=== PATIENT | female | born 1955 | race Caucasian/White ===

== ENCOUNTER → 2019-05-31 13:06 | Outpatient (REF) | payer SELFPAY | LOC: CVS 13:06 | PROVIDERS: Family Provider Internal Medicine; PCP Internal Medicine; Referring Provider Family Medicine; Visit Provider Family Medicine | DX: R00.2 Palpitations (principal) | CPT/HCPCS: 93270 ==

== ENCOUNTER → 2021-05-02 07:03 | Outpatient (CLI) | payer BC, SELFPAY ==
--- NOTE | 2021-05-02 07:10 | ECHOD_ITS ---
Reason For Study: Afib Procedure This was a 2D Doppler, Color Flow transthoracic echocardiogram. The exam was of adequate technical quality. Exam performed in department. Left Ventricle Normal LV size. Left ventricular systolic function is normal. The estimated ejection fraction is 65 %. Unable to assess diastolic dysfunction. No regional wall motion abnormalities noted. Right Ventricle Normal RV size. Normal systolic function. Atria The left atrium is mildly enlarged. Normal right atrium. No doppler evidence for ASD. Mitral Valve There is no mitral annular calcification. Normal mitral valve. Mild (1+) mitral valve insufficiency. Tricuspid Valve Normal tricuspid valve. Mild tricuspid valve insufficiency. Right ventricular systolic pressure estimated to be 22 mmHg. Aortic Valve Trisinus/trileaflet aortic valve. Mild focal aortic valve thickening. Pulmonic Valve The pulmonic valve is not well visualized. Trivial pulmonic valve insufficiency. Great Vessels Normal sized aortic root. Pericardium/Pleural No pericardial effusion. MMode/2D Measurements & Calculations LVIDd: 4.0 cm IVSd: 1.2 cm Ao root diam: 3.0 cm LVIDs: 2.6 cm LVPWd: 1.2 cm LA dimension: 3.8 cm RVDd: 3.3 cm FS: 33.4 % LAV(MOD-bp): 68.3 ml LA A4 area: 20.5 cm2 RA A4 area: 12.8 cm2 LAV(MOD-bp) Indexed: 33.3 ml/m2 LAV(MOD-sp2): 60.0 ml LAV(MOD-sp4): 62.8 ml Doppler Measurements & Calculations MV E max tamara: 92.0 cm/sec Ao V2 max: 101.9 cm/sec LV V1 max: 91.3 cm/sec Ao max P.2 mmHg LV V1 max P.4 mmHg MR max tamara: 490.0 cm/sec PA V2 max: 97.4 cm/sec TR max tamara: 218.7 cm/sec MR max P.3 mmHg TR max P.1 mmHg ECHO/Echo Complete Interpretation Summary Left ventricular systolic function is normal. The estimated ejection fraction is 65 %. The left atrium is mildly enlarged. Mild (1+) mitral valve insufficiency. Mild tricuspid valve insufficiency. Mild focal aortic valve thickening. Trivial pulmonic valve insufficiency. Right ventricular systolic pressure estimated to be 22 mmHg. Unable to assess diastolic dysfunction. Ordering Physician: Kai Daly Referring Physician: Kai Daly Performed By: Sina Mora RCS
--- NOTE | 2021-05-02 12:15 | STRESSREP ---
Stress Test Report Date: 05-02-2021 Procedure: Pharmacologic stress nuclear imaging study Indications: Atrial fibrillation Consent: Per the patient Procedure: The patient underwent pharmacologic (Regadenoson 0.4mg ) evaluation with a peak heart rate of 117 beats per minute (75%predicted maximal heart rate) and a peak blood pressure of 138/70 mmHg. The baseline ECG demonstrated sinus bradycardia. The peak pharmacologic ECG demonstrated atrial fibrillation/flutter with no obvious ECG changes. There was a rare PAC pretest and subsequent notation of atrial fibrillation/flutter during infusion and during recovery. There was no complaint of chest discomfort during pharmacologic infusion or recovery. The examination was discontinued secondary to completion of protocol. Impression: 1. Pharmacologic (Regadenoson) evaluation 2. Peak pharmacologic ECG with atrial fibrillation/flutter with no obvious ECG changes. 3. There was a rare PAC pretest with subsequent notation of atrial fibrillation/flutter during infusion and recovery. 4. Nuclear images pending Myocardial perfusion imaging study: Technique: The patient was injected with 14.3 millicuries of technetium 99m Cardiolite and subsequently rest SPECT Cardiolite nuclear imaging was obtained in the horizontal long, vertical long, and short axis views. The patient underwent pharmacologic (Regadenoson) evaluation with a peak heart rate of 117 beats per minute (75% percent predicted maximal heart rate) and a peak blood pressure of 138/70 mmHg. The patient was injected with 45.0 millicuries of technetium 99m Cardiolite and subsequently stress SPECT Cardiolite nuclear imaging was obtained in the horizontal long, vertical long, and short axis views. A gated Cardiolite study at peak stress was obtained. Interpretation: Rest and stress SPECT Cardiolite nuclear imaging status post realignment, normalization, and attenuation correction demonstrate relative uniform tracer uptake and myocardial perfusion appearing within normal limits. There is end systolic thickening and brightening. The gated Cardiolite study demonstrates myocardial thickening and inward wall motion. The reported LVEF is 86%. Impression: 1. Rest and stress SPECT Cardiolite nuclear imaging demonstrate relative uniform tracer uptake and myocardial perfusion appearing within normal limits. 2. The gated Cardiolite study reports an LVEF of 86%. This note was generated with [employer] software. It may contain incorrect words, spelling, and punctuation that were not noted in checking the note before signing.
== END ==
PROVIDERS: PCP Family Medicine; Referring Provider Family Medicine; Visit Provider Family Medicine
DX: I48.19 Other persistent atrial fibrillation (principal)
CPT/HCPCS: 78452; 93017; 93306; A9500; A4216; J2785

== ENCOUNTER → 2021-06-04 16:42 | Outpatient (CLI) | payer BC, SELFPAY ==
[2021-06-04 17:15] LABS: Absolute Lymphocyte Count 2.56 X10^3/uL (0.83-4.51); Absolute Neutrophil Count 4.4 X10^3/uL (2.0-7.7); Basophil# 0.04 X10^3/uL; Basophil% 0.5 % (0-1); Eosinophil# 0.32 X10^3/uL; Eosinophils% 4.1 % (0-5); Hematocrit 42.6 % (37-47); Hemoglobin 13.8 g/dL (12.0-15.0); Lymphocyte # 2.56 X10^3/ul (0.83-4.51); Lymphocyte % 32.5 % (19-41); Mean Corp Hgb Conc 32.4 g/dL (32-36); Mean Corpuscular Hgb 30.3 pg (27.0-32.0); Mean Corpuscular Volume 93.4 fL (81-99); Mean Platelet Vol. 10.4 fl (6.2-12.0); Monocyte# 0.54 X10^3/uL; Monocyte% 6.9 % (0-10); NRBC Flagged by Analyzer 0 % (0-5); Neutrophil % 55.9 % (47-70); Platelet Count 216 K/mm3 (150-450); RBC Distribution Width CV 13.4 % (11.6-14.6); RBC Distribution Width SD 45.9 fl (35.1-43.9); Red Blood Count 4.56 M/mm3 (4.2-5.4); White Blood Count 7.9 K/mm3 (4.4-11.0)
[2021-06-04 17:52] LABS: Anion Gap 5 (5-15); BUN 17 mg/dL (7-18); BUN/Creat Ratio 26.5 RATIO (10-20); Calcium,Total 8.9 mg/dL (8.5-10.1); Chloride 103 mmol/L (98-107); Creatinine, Serum 0.64 mg/dL (0.55-1.02); EST Glomerular Filtration Rate 98 mL/min (>60); Est Glom Filt Rate - Afr Amer 119 mL/min (>60); Free T3 2.9 pg/mL (2.18-3.98); Glucose 95 mg/dL (74-106); Magnesium 2.3 mg/dL (1.6-2.6); Potassium 3.6 mmol/L (3.5-5.1); Sodium Level 138 mmol/L (136-145); T4 Free Direct 0.96 ng/dL (0.76-1.46); Thyroid Stim Hormone (TSH) 0.72 uIU/mL (0.358-3.74)
== END ==
PROVIDERS: PCP Family Medicine; Visit Provider Physician Assistant Medical
DX: I48.91 Unspecified atrial fibrillation (principal)
CPT/HCPCS: 36415; 80048; 83735; 84439; 84443; 84481; 85025

== ENCOUNTER 2025-09-09 05:45 | Emergency (ER) | payer MEDICARE, SELFPAY ==
[2025-09-09 05:46] VITALS: BP 153/90; PULSE 75; RESP 16; TEMP 36.4; O2SAT 100; BMI 37.9
--- NOTE | 2025-09-09 05:58 | CT_ITS ---
PROCEDURE: ABDOMEN/PELVIS W IV CONT ONLY 09/09/2025 REASON FOR EXAM: ABDOMINAL PAIN TECHNIQUE: Procedure Code: [id number] Modality: CT Procedure: ABDOMEN/PELVIS W IV CONT ONLY Coronal and Sagittal reconstruction series were provided. CONTRAST: Isovue 370 VOLUME: 95 mL One or more dose reduction techniques were used (e.g., Automated exposure control, adjustment of the mA and/or kV according to patient size, use of iterative reconstruction technique. RADIATION DOSE SUMMARY: CTDlvol: 23.19 mGy DLP: 1975.74 mGycm COMPARISON: None. FINDINGS: Lung bases: Dependent changes in the posterior lower lobes. Hiatal hernia measures 6 x 6 cm. Liver: Unremarkable. Gallbladder: Unremarkable. No biliary dilation. Spleen: Unremarkable. Pancreas: Unremarkable. Adrenals: Unremarkable. Kidneys: Severe right hydronephrosis. No obstructing stones. No left hydronephrosis. Bladder: Decompressed which limits the evaluation. Questionable wall thickening posteriorly. Reproductive Organs: Unremarkable. Bowel: Colonic diverticulosis with no evidence of acute diverticulitis. Appendix: Unremarkable. Lymph nodes: No lymphadenopathy. Vasculature: No aneurysm. Atherosclerotic calcifications. Peritoneum / Retroperitoneum: No free air or free fluid. Bones: No acute bony abnormalities. CT/Abdomen/Pelvis W IV Cont ONLY IMPRESSION: Severe right hydronephrosis without obstructing stones. This may represent a r ecently passed stone or urinary tract infection. Questionable posterior bladder wall thickening near the ureter insertion. Ultr asound on full bladder may be performed for further evaluation. Reading Location: [facility]
[2025-09-09] MEDS: 0.9% Normal Saline (1000mL) 1,000 ML 999 ML IV (06:03)
[2025-09-09 06:04] LABS: Hematocrit 45.0 % (37-47); Hemoglobin 14.6 g/dL (12.0-15.0); Immature Granulocytes Count 0.050 X10^3/uL (0.0-0.0); Mean Corp Hgb Conc 32.4 g/dL (32-36); Mean Corpuscular Volume 94.3 fL (81-99); Mean Platelet Vol. 10.4 fl (6.2-12.0); NRBC Flagged by Analyzer 0 % (0-5); Platelet Count 263 K/mm3 (150-450); RBC Distribution Width CV 13.4 % (11.6-14.6); RBC Distribution Width SD 46.5 fl (35.1-43.9); Red Blood Count 4.77 M/mm3 (4.2-5.4); White Blood Count 12.6 K/mm3 (4.4-11.0)
[2025-09-09 06:25] LABS: AST(SGOT) 26 U/L (<=31); Alanine Aminotransfer ALT/SGPT 18 U/L (<=34); Albumin, Serum 4.6 g/dL (3.4-4.8); Alkaline Phosphatase 111 U/L (35-104); Anion Gap 17 (5-15); BUN 15 mg/dL (4-19); BUN/Creat Ratio 17.0 RATIO (10-20); Calcium,Total 9.5 mg/dL (7.6-11.0); Carbon Dioxide 24.8 mmol/L (21.0-32.0); Chloride 98 mmol/L (98-108); Estimated Creatinine Clearance 71.73 ml/min (50-250); Globulin 3.1 g/dL (2.2-4.2); Glucose 166 mg/dL (70-99); Lipase 10 U/L (13-75); Potassium 3.6 mmol/L (3.3-5.1)
--- OUTSIDE RECORDS SUMMARY | 2025-09-09 07:10 | XMS RPT_ITS | CCD ---
Author Organization [facility] Care Team Providers Care Bioinformatics Computer Scientist Name Role Phone Kai Ayers MD Primary Care Provider [place] COLLEGE HIRE.Lisa MCLEOD Unavailable Ruth Lucia PA-C Unavailable Kai Ayers MD Primary Care Provider [place] COLLEGE HIRE.Lisa MCLEOD Unavailable [place] COLLEGE HIRE.Lisa MCLEOD Unavailable Ruth Lucia PA-C Unavailable Dr. Kai Ayers MD Primary Care Provider Dr. Kai Ayers MD Referring Provider Dr. Rah Joseph MD Attending Provider Rah Joseph Attending Unavailable Kai Ayers Referring Unavailable Kai Ayers Primary Care Unavailable KAI AYERS Referring Unavailable KAI AYERS Primary Care Unavailable KAI AYERS Referring Unavailable KAI AYERS Primary Care Unavailable KAI AYERS Attending Unavailable KAI AYERS Primary Care Unavailable KAI AYERS Attending Unavailable KAI AYERS Primary Care Unavailable Allergies Allergy Classification Reported Allergen(s) Allergy Type Date of Onset Reaction(s) Facility [facility] (1 source) [facility] Drug Allergy 9 Other: See Comments [facility] Work Phone: Serotonin Reuptake Inhibitors (SSRIs) (1 source) Citalopram Drug Allergy 9 Other: See Comments [facility] (20 sources) busPIRone; Translations: [BUSPIRONE] Drug Allergy 9 Other: See Comments [facility] Work Phone: (20 sources) Citalopram; Translations: [CITALOPRAM] Drug Allergy 9 Other: See Comments [facility] Work Phone: (1 source) rivaroxaban Drug Allergy 5 Marked bruising, vaginal bleeding (eliquis ok) [facility] (1 source) busPIRone Drug Allergy 5 [facility] Repository (1 source) Citalopram Drug Allergy 5 [facility] Repository (1 source) rivaroxaban Drug Allergy 5 [facility] Repository Medications Current Medications Medication Drug Class(es) Dates Sig (Normalized) Sig (Original) acetaminophen 250 mg / aspirin 250 mg / caffeine 65 mg oral tablet (1 source) Platelet Aggregation Inhibitor, Nonsteroidal Anti-inflammatory Drug, Central Nervous System Stimulant, Methylxanthine Start: 11-20-2014 take 1 tablet by mouth once daily as needed Aspirin-Acetami nophen-Caffeine (Excedrin Migraine) 1 EACH tablet Active 1 NMA PO DAILY NEEDED as needed for headache November 20, 2014 1:00am apixaban 5 mg oral tablet (20 sources) Factor Xa Inhibitor Start: 04-25-2021 End: 04-04-2025 take 1 tablet by mouth twice daily ELIQUIS 5 mg tab(s) TAKE 1 TAB BY MOUTH TWICE DAILY. STOP USING XARELTO 02/17/2022 Active Comment on above: TAKE 1 TAB BY MOUTH TWICE DAILY. STOP USING XARELTO calcium carbonate 750 mg chewable tablet (7 sources) Start: 09-13-2024 take 1 tablet by mouth twice daily calcium Carbonate 300 mg, 750mg, (TUMS E-X) 300 mg (750 mg) chewable tablet Take 1 tablet by mouth two times a day. 09/13/2024 Active calcium carbonate 1500 mg / cholecalciferol 200 unt oral tablet (20 sources) Vitamin D Start: 03-21-2021 take 1 tablet by mouth once daily calcium carbonate 600 mg-cholecalcife rol 200 units 600 mg-5 mcg (200 unit) tab Take 1 tablet by mouth once daily. 03/21/2021 Active Comment on above: Take 1 tablet by axel th once daily. Calcium Carbonate 650 mg calcium (1,625 mg) tablet (2 sources) Start: 05-24-2025 take 1 tablet by mouth once daily as needed Calcium Carbonate 650 mg calcium (1,625 mg) tablet Active 650 mg PO DAILY as needed May 24, 2025 3:34pm Start: 04-25-2021 End: 05-24-2025 take 1 tablet by mouth once daily Calcium Carbonate 650 mg calcium (1,625 mg) tablet Discontinued 650 mg PO DAILY April 25, 2021 12:00am May 24, 2025 3:35pm cholecalciferol 0.05 mg oral capsule (20 sources) Vitamin D Start: 09-13-2024 Cholecalcifero l, Vitamin D3, (VITAMIN D-3) 50 mcg (2,000 unit) cap Take one twice a day 09/13/2024 Active Start: 11-05-2020 End: 05-24-2025 take 1 capsule by mouth once daily as needed Cholecalciferol (Vitamin D3) 50 mcg (2,000 unit) capsule Active 50 ug PO DAILY as needed May 24, 2025 3:34pm Comment on above: Take one daily clobetasol propionate 0.0005 mg/mg topical ointment (20 sources) Corticosteroid Start: 05-26-2021 Clobetasol 0.05 % ointment Active 1 NMA TOPICAL EVERY WEEK May 26, 2021 12:00am 1-3x week Start: 02-02-2018 End: 05-25-2024 clobetasol (TEMOVATE) 0.05 % ointment Indications: Lichen sclerosus Use only a thin layer over affected area. Use 1-3 times weekly for maintenance 45 g 3 05/25/2024 Active Comment on above: Use only a thin laye r over affected area. Use 1-3 times weekly for maintenance clonazePAM 0.5 mg oral tablet (20 sources) Benzodiazepine Start: 12-29-2023 End: 09-16-2025 clonazePAM (KLONOPIN) 0.5 mg tablet Indications: Panic disorder without agoraphobia Take 1/2 a once daily as needed for anxiety 15 tablet 1 03/03/2025 09/16/2025 Active Start: 11-20-2014 End: 11-19-2023 clonazePAM (KLONOPIN) 0.5 mg tablet Indications: Panic disorder without agoraphobia Take 1/2 a once daily as needed for anxiety 15 tablet 1 05/05/2023 11/19/2023 Active Comment on above: Take 1/2 a once domenica y as needed for anxiety Cranberry (20 sources) Non-Standardized Food Allergenic Extract, Non-Standardized Plant Allergenic Extract Start: 05-26-2021 take 1 capsule by mouth once daily at mealtime Cranberry 500 mg capsule Active 1000 mg PO DAILY May 26, 2021 12:00am administer with meals Start: 11-20-2014 End: 05-26-2021 take 1 tablet by mouth once daily Cranberry Extract 300 MG tablet Discontinued 300 mg PO DAILY November 20, 2014 1:00am May 26, 2021 10:52am take 2 capsules by m outh once daily Cranberry 500 mg cap Take 2 capsules by mouth once daily. Active take 2 capsules by m outh once daily Cranberry 500 mg cap Take 2 capsules by mouth once daily. 0 Active Comment on above: Take 2 capsules by m outh once daily. FOLIC ACID/MULTIVIT-MIN/LUT EIN (CENTRUM SILVER ORAL) (20 sources) take 1 tablet by mouth once daily FOLIC ACID/MULTIVIT-MIN/GYPSY TEIN (CENTRUM SILVER ORAL) Take 1 tablet by mouth once daily. Active take 1 tablet by mouth once domenica y FOLIC ACID/MULTIVIT-MIN/LUTEIN (CENTRUM SILVER ORAL) Take 1 tablet by mouth once daily. 0 Active Comment on above: Take 1 tablet by axel th once daily. hydroCHLOROthiazide 12.5 mg oral capsule (20 sources) Thiazide Diuretic Start: 2020 End: 2024 take 1 capsule by mouth once daily hydroCHLOROthiazide 12.5 mg capsule Take 1 capsule by mouth once daily. 90 capsule 2 03/03/2025 Active Start: 04-25-2021 take 1 tablet by axel th once daily Hydrochlorothiazide 12.5 mg tablet Active 12.5 mg PO DAILY April 25, 2021 12:00am Comment on above: Take 1 capsule by mo uth once daily. 24 hr metoprolol succinate 50 mg extended release oral tablet (20 sources) beta-Adrenergic Alexis Start: 04-25-20 End: 02-09-20 take 1 tablet by mouth once daily metoprolol succinate ER (TOPROL XL) 50 mg 24 hr tablet Take 1 tablet by mouth once daily. 90 tablet 1 02/08/2025 Active Comment on above: Take 1 tablet by axel once daily. nystatin [id number] unt/ml topical cream (4 sources) Polyene Antifungal Start: 05-25-20 End: 11-24-19 nystatin (MYCOSTATIN) cream Indications: Cutaneous candidiasis Apply 1 application to affected area two times a day. 30 g 3 05/25/2024 11/24/2024 Active triamcinolone acetonide 1 mg/ml topical cream (20 sources) Corticosteroid Start: 05-05-20 End: 05-04-20 triamcinolone acetonide (KENALOG) 0.1 % cream Apply 1 application to affected area twice daily. 30 g 0 05/05/2023 05/04/2024 Active Start: 02-21-2022 End: 02-21-2023 triamcinolone acetonide (ALISA ALOG) 0.1 % cream Apply 1 application to affected area twice daily. 30 g 0 02/21/2022 02/21/2023 Comment on above: Apply 1 application to affected area twice daily. Completed/Discontinued Medications Medication Drug Class(es) Dates Sig (Normalized) Sig (Original) acetaminophen 325 mg / oxyCODONE hydrochloride 5 mg oral tablet (1 source) Opioid Agonist Start: 2014 End: 04-25-2021 Oxycodone-Acetamin ophen 1 TABLET tablet Discontinued 1 - 2 {tbl} PO EVERY 6 HOURS NEEDED as needed for Mod-severe pain (scale 6-10) 80 0 2014 1:00am April 25, 2021 11:47am aspirin 325 mg oral tablet (1 source) Platelet Aggregation Inhibitor, Nonsteroidal Anti-inflammatory Drug Start: 2014 End: 04-25-2021 take 1 tablet by mouth once daily Aspirin 325 MG tablet Discontinued 325 mg PO DAILY@0800 14 2014 1:00am April 25, 2021 11:44am atorvastatin 10 mg oral tablet (20 sources) HMG-CoA Reductase Inhibitor Start: 01-20-2025 End: 07-19-2025 take 1 tablet by mouth once daily atorvastatin (LIPITOR) 10 mg tablet Take 1 tablet by mouth once daily. 90 tablet 1 01/20/2025 04/11/2025 Discontinued (Discontinued by Patient) Start: 04-25-2021 End: 05-24-2025 take 1 tablet by mouth once daily atorvastatin (LIPITOR) 10 mg tablet Take 1 tablet by mouth once daily. 90 tablet 1 03/06/2024 Active Comment on above: Take 1 tablet by axel th once daily. cyanocobalamin, vitamin B-12, (VITAMIN B-12 ORAL) (14 sources) cyanocobalamin, vitamin B-12, (VITAMIN B-12 ORAL) Take by mouth. 0 Active Comment on above: Take by mouth. rivaroxaban 20 mg oral tablet (14 sources) Factor Xa Inhibitor Start: 2 End: 2 take 1 tablet by mouth once daily at dinner Rivaroxaban (Xarelto) 20 mg tablet Discontinued 20 mg PO DAILY January 21, 2022 12:00am January 22, 2022 11:42am must administer with evening meal Comment on above: Take 1 tablet by axel th daily with dinner. Problems Active Problems Problem Classification Problem Date Documented Da te Episodic/Chronic Administrative/social admission (20 sources) Advance directive discussed with patient; Translations: [Other specified counseling] Onset: 10-09-2022 Episodic Anxiety disorders (20 sources) Panic disorder without agoraphobia; Translations: [Panic disorder [episodic paroxysmal anxiety]] Onset: 09-20-2006 03-27-2020 Chronic Cardiac dysrhythmias (20 sources) Persistent atrial fibrillation; Translations: [Other persistent atrial fibrillation] Onset: 04-21-2021 10-09-2021 Chronic Cardiac dysrhythmias (3 sources) Palpitations; Translations: [Palpitations] Onset: 06-23-2019 06-23-2019 Episodic Disorders of lipid metabolism (20 sources) Mixed hyperlipidemia; Translations: [Mixed hyperlipidemia] Onset: 04-03-2011 Resolved: 05-20-2016 12-20-2018 Chronic Essential hypertension (1 source) Essential hypertension; Translations: [Essential (primary) hypertension] 04-25-2021 Chronic Fracture of lower limb (1 source) Closed fracture of ankle; Translations: [Other fracture of left lower leg, initial encounter for closed fracture] 11-21-2014 Episodic Immunizations and screening for infectious disease (3 sources) Vaccination needed; Translations: [Encounter for immunization] Onset: 09-13-2024 04-11-2025 Episodic Osteoporosis (20 sources) Senile osteoporosis; Translations: [Age-related osteoporosis without current pathological fracture] Onset: 11-05-2020 11-05-2020 Chronic Other nutritional; endocrine; and metabolic disorders (20 sources) Obese class II; Translations: [Obesity, unspecified] Onset: 03-21-2021 03-21-2021 Chronic Other screening for suspected conditions (not mental disorders or infectious disease) (20 sources) Thyroid function tests abnormal; Translations: [Other specified abnormal findings of blood chemistry] Onset: 08-18-2012 Resolved: 06-04-2017 03-28-2020 Episodic Other skin disorders (20 sources) Lichen sclerosus et atrophicus; Translations: [Circumscribed scleroderma] Onset: 06-03-2017 12-20-2018 Chronic Residual codes; unclassified (1 source) Menopause present; Translations: [Asymptomatic menopausal state] 03-29-2024 Episodic Residual codes; unclassified (1 source) Tobacco user; Translations: [Tobacco use] 05-26-2021 Episodic Screening and history of mental health and substance abuse codes (1 source) Encounter for screening for depression; Translations: [Screening for depression] Onset: 04-11-2025 Episodic Substance-related disorders (20 sources) Smoker; Translations: [Nicotine dependence, unspecified, uncomplicated] Onset: 03-23-2006 12-20-2018 Chronic Unclassified (2 sources) Patient encounter status 01-30-2025 Unclassified (1 source) Other persistent atrial fibrillation; Translations: [Persistent atrial fibrillation (HCC)] Onset: 10-09-2021 Unclassified (1 source) Obesity, Class II, BMI 35-39.9; Translations: [Obesity, Class II, BMI 35-39.9] Onset: 03-21-2021 Past or Other Problems Problem Classification Problem Date Documented Date Episodic/Chronic Diabetes mellitus without complication (20 sources) High hemoglobin A1c level; Translations: [Other abnormal glucose] Onset: 03-21-2021 03-21-2021 Episodic Mycoses (20 sources) Onychomycosis due to dermatophyte ; Translations: [Tinea unguium] Onset: 06-03-2017 12-20-2018 Episodic Other aftercare (20 sources) Drug therapy finding; Translations: [Other alf (current) drug therapy] Onset: 04-24-2014 04-25-2014 Episodic Other aftercare (20 sources) Patient encounter status; Translations: [Other 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) drug therapy] Onset: 03-20-2022 03-20-2022 Episodic Other aftercare (1 source) Other 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) drug therapy; Translations: [Medication management] Onset: 03-20-2022 Episodic Other and unspecified benign neoplasm (18 sources) Benign neoplasm of rectum and anal canal; Translations: [Benign neoplasm of rectum] Onset: 08-18-2012 Resolved: 06-03-2017 06-03-2017 Episodic Other skin disorders (20 sources) History of actinic keratosis; Translations: [Personal history of diseases of the skin and subcutaneous tissue] Onset: 06-03-2017 12-20-2018 Episodic Residual codes; unclassified (20 sources) Localized edema; Translations: [Localized edema] Onset: 03-21-2021 03-21-2021 Episodic Residual codes; unclassified (20 sources) Active living will ; Translations: [Other specified health status] Onset: 10-09-2022 10-09-2022 Episodic Spondylosis; intervertebral disc disorders; other back problems (18 sources) Low back pain; Translations: [Lumbago] Onset: 04-01-2006 Resolved: 06-03-2017 06-03-2017 Episodic Results Test Name Value Interpretation Reference Range Facility [facility] SCREENING W TOMOon 06-28 [facility] SCREENING W PRIMITIVO * * *Final Report* * * DATE OF EXAM: Jun 28 2025 2:49PM [id number] - [facility] SCREENING W PRIMITIVO / PROCEDURE REASON: Encounter for screening mammogram for breast cancer * * * * Physician Interpretation * * * * RESULT: [place] [address] #[id number] - [facility] SCREENING W PRIMITIVO HISTORY: 69 year-old patient presents for screening. Patient is asymptomatic in both breasts. Patient states no personal history of breast cancer. COMPARISON STUDIES: The present examination has been compared to prior imaging studies dated 06/18/2017 (mammogram), 07/01/2018 (mammogram) and 10/29/2020 (mammogram). MAMMOGRAM TECHNIQUE: The study was acquired using full field digital technology and interpreted from soft copy. Digital Breast Tomosynthesis (DBT) images were obtained and used to assist in the interpretation of this examination. Computer-aided detection was utilized by the radiologist in the interpretation of this examination. MAMMOGRAM FINDINGS: There are scattered areas of fibroglandular density. No suspicious masses, calcifications or other abnormalities are seen in either breast. There are no significant interval changes. IMPRESSION: There is no mammographic evidence of malignancy in either breast. Routine screening mammogram is recommended. Annual mammogram will be due in 1 year. BI-RADS Category 1: Negative RISK: Based on the Tyrer-Cuzick (TC) risk assessment model, this patient has a 5.7% lifetime risk of developing breast cancer, meaning they are at average risk for developing breast cancer. However, this is only an estimate based on available history provided on the patient's questionnaire. We encourage all patients to talk with their providers about these results, further recommendations for managing breast health, and appropriate supplemental screening options if the patient has dense breast tissue. Interpreting Radiologist: Lzi Ferguson M.D. FACR, FS Electronically signed on: 07/02/2025 Algologist: TIFFANIE Transcribe Date/Time: Jun 28 2025 2:34P Dictated by: LIZ FERGUSON MD This examination was interpreted and the report reviewed and electronically signed by: LIZ FERGUSON MD on Jul 02 2025 10:37AM EST [id number] Normal [facility] Cardiology Visit Reporton Cardiology Visit Report [facility] [address] [place] [address] OFFICE VISIT Date of Service: 05/24/25 MR#: [id number] Acct: [id number] Name: BOGDAN BATRES Rep #: [id number] 07 : 1955 Provider: Dr. Rah Joseph MD Age/Sex: 69/F Location: [facility] Status: Signed HPI HPI History of Present Illness Details: This is a 69-year-old white female who presents today for outpatient cardiovascular visit with a history of persistent atrial fibrillation. She tells me that she is doing well other than shortness of breath when she is climbing stairs as well as occasional palpitations. She has been compliant with all her medications except for her statins which she says that she has discontinued. Her lipid levels however not ideal. From a cardiac standpoint, the patient is doing well. She does acknowledge occasional palpitations. She denies chest pain, pressure or heaviness. She denies resting SOB, Orthopnea, and PND. She does not have bleeding issues; no blood in urine, stool or nosebleeds. She denies any decrease in energy level, myalgias, or claudication. She does have bilateral lower ankle edema-this is relieved with elevation and compression stockings. She denies sudden weight gain. She denies dizziness, lightheadedness, syncopal or near syncopal episodes, and headaches. 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: No Accompanied by: Self Is patient in pain?: No Allergies rivaroxaban (From Xarelto) Adverse Reaction (Intermediate, Verified 05/24/25 15:33) Marked bruising, vaginal bleeding (eliquis ok) buspirone (From BuSpar) Adverse Reaction (Unknown, Verified 05/24/25 15:33) Increased Depression citalopram (From Celexa) Adverse Reaction (Unknown, Verified 05/24/25 15:33) Increased Anxiety and slight depression Medications ???Medication ???Instructions ???Recorded ???Confirmed ???Type [id number]-lu ffeine 250 1 ea PO DAILY PRN PRN headache 0 11/20/14 05/24/25 History mg-250 mg-65 mg tablet (Excedrin Migraine) clonazepam 0.5 mg tablet 0.5 mg PO DAILY PRN 04/25/2105/24 History hydrochlorothiazide 12.5 mg tablet 12.5 mg PO DAILY 04/25/21 History metoprolol succinate 50 mg 50 mg PO DAILY 04/25/21 05/24/25 H istory tablet,extended release 24 hr clobetasol 0.05 % topical ointment 1 applic topical QWEEK 05/26/21 03/28/24 History cranberry 500 mg capsule 1,000 mg PO DAILY 05/26/21 5 History apixaban 5 mg tablet (Eliquis) 5 mg PO BID #60 TABLETS 04/04/25 0 05/24/25 Rx calcium carbonate 650 mg PO DAILY PRN 05/24/2505/24 History cholecalciferol (vitamin D3) 50 50 mcg PO DAILY PRN 05/24/2505/24 History mcg (2,000 unit) capsule Have you fallen in the past year?: No PFSH Medical History Longstanding persistent atrial fibrillation Premature ventricular contraction Atrial flutter Tobacco abuse Panic disorder Generalized anxiety disorder Mixed hyperlipidemia Surgical History History of ankle surgery ( 2016) History of local excision of skin lesion Family History Mother CVA (cerebral vascular accident) Hypertension Atrial fibrillation Alzheimer's disease Father Alzheimer's disease Social History Smoking Status: Current every day smoker alcohol intake: current details: Rare substance use type: does not use caffeine: Yes Type: coffee Number of servings: 1 ROS Const Const: Negative for fatigue, weakness, headache(s), daytime sleepiness or difficulty sleeping ENT ENT: Negative for headache(s), dizziness or Nosebleed/epistaxis Cardio Chest Pain: No Palpitations: Yes (occas.) Edema: Bilateral (wears compression stockings ) Resp Respiratory: Positive for SOB with activity (climbing stairs ); Negative for SOB at rest, SOB orthopnea SOB lying down or Cough GI GI: Negative nausea, vomiting or heartburn Neuro Neuro: Negative for dizziness, lightheadedness, near syncope, headache(s) or weakness Endo Endo: Negative for fatigue Cardiology Exam Const Appearance: cooperative, healthy appearing, comfortable, no acute distress, well developed and well groomed Nutritional Appearance: obese Orientation: alert, awake and oriented x3 Head Head: normal to inspection, normocephalic and atraumatic Ears: hearing grossly normal bilaterally Nose: external nose normal Face and S (more content not included)... Normal [facility] CNPNon 05-08-2025 [facility]phone [facility] -------- BOGDAN BATRES ([id number]) 1955 F Date Time Provider Department 05/08/25 KAI AYERS [facility] During your visit today, we recorded the following information about you: AMBER GEORGE 05/08/2025 10:09 AM Signed Patient scheduled for nurse visit 05/25/25 to receive Shingrix vaccine. Please place order at this time. Amber George LPN Allergies As of Date: 05/08/2025 Noted Allergy Reaction BUSPAR (BUSPIRONE) 05/26/2019 14 - Other: See Comments Comments: Increased depression CELEXA (CITALOPRAM) 02/21/2019 14 - Other: See Comments Comments: Increased anxiety and slight depression. Date Reviewed: 04/11/2025 Reviewed by: Kai Ayers MD - Fully Assessed Reason for Visit: Orders [681] Primary Visit Diagnosis:Need for vaccination [Z23] Order(s):ZOSTER VACCINE, RECOMBINANT (SHINGRIX) [12368MMY] Order #: [id number] ZOSTER VACCINE, RECOMBINANT (SHINGRIX) [[id number]] Order #: [id number] FUTURE Prescriptions as of 05/08/2025 - clonazePAM (KLONOPIN) 0.5 mg tablet Take 1/2 a once daily as needed for anxiety - hydroCHLOROthiazide 12.5 mg capsule Take 1 capsule by mouth once daily. - metoprolol succinate ER (TOPROL XL) 50 mg 24 hr tablet Take 1 tablet by mouth once daily. - Cholecalciferol, Vitamin D3, (VITAMIN D-3) 50 mcg (2,000 unit) cap Take one twice a day - calcium Carbonate 300 mg, 750mg, (TUMS E-X) 300 mg (750 mg) chewable tablet Take 1 tablet by mouth two times a day. - clobetasol (TEMOVATE) 0.05 % ointment Use only a thin layer over affected area. Use 1-3 times weekly for maintenance - ELIQUIS 5 mg tab(s) TAKE 1 TAB BY MOUTH TWICE DAILY. STOP USING XARELTO - FOLIC ACID/MULTIVIT-MIN/LUTEIN (CENTRUM SILVER ORAL) Take 1 tablet by mouth once daily. - Cranberry 500 mg cap Take 2 capsules by mouth once daily. Meds Comments as of 11/14/2015: Problem List As Of Date 05/08/2025 Noted Resolved Smoker [F17.200] 03/23/2006 Panic disorder without agoraphobia [F41.0] 09/20/2006 Lumbago [M54.50] 04/01/2006 06/03/2017 Mixed hyperlipidemia [E78.2] 04/03/2011 Benign neoplasm of rectum and anal canal [D12.8*08/18/2012 06/03/2017 Special screening for malignant neoplasms, colo*08/18/2012 06/04/2017 Controlled substance agreement signed [Z79.899] 04/24/2014 HLD (hyperlipidemia) [E78.5] 05/06/2014 05/20/2016 Lichen sclerosus [L90.0] 06/03/2017 H/O actinic keratosis [Z87.2] 06/03/2017 Dermatophytosis, nail [B35.1] 06/03/2017 Generalized anxiety disorder [F41.1] 12/20/2018 Well adult exam [Z00.00] 10/11/2020 Age-related osteoporosis without current pathol*11/05/2020 Localized edema [R60.0] 03/21/2021 Elevated hemoglobin A1c [R73.09] 03/21/2021 Obesity, Class II, BMI 35-39.9 [E66.812] 03/21/2021 Persistent atrial fibrillation (HCC) [I48.19] 04/21/2021 Medication management [Z79.899] 03/20/2022 Screening for colon cancer [Z12.11] 10/09/[address] [Z78.9] 10/09/2022 Advance directive discussed with patient [Z71.8*10/09/2022 Encounter Status:Closed by KAI AYERS on 05/08/25 Normal [facility] CBC W Auto Differential pane l (Bld)on 04-11-2025 Basophils (Bld) [#/Vol] 0.04 10*3/uL Normal <0.11 [facility] Comment on above: Order Comment: Speci men Type: BLOOD SPECIMEN Ordering Facility: [facility] [place] Address: [address] [place] [address] Performed By: #### 5 5454-3 #### [facility] CLIA [id number] [address] [place] [address] [place] Basophils/100 WBC (Bld) 0.5 % Normal [facility] Comment on above: Order Comment: Speci men Type: BLOOD SPECIMEN Ordering Facility: [facility] [place] Address: [address] [place] [address] Performed By: #### 5 5454-3 #### [facility] CLIA [id number] [address] [place] [address] [place] Differential cell count method Nom (Bld) Auto Normal [facility] Comment on above: Order Comment: Speci men Type: BLOOD SPECIMEN Ordering Facility: [facility] [place] Address: [address] [place] [address] Performed By: #### 5 5454-3 #### [facility] CLIA [id number] [address] [place] [address] [place] Eosinophils (Bld) [#/Vol] 0.14 10*3/uL Normal <0.46 [facility] Comment on above: Order Comment: Speci men Type: BLOOD SPECIMEN Ordering Facility: [facility] [place] Address: [address] [place] [address] Performed By: #### 5 5454-3 #### [facility] CLIA [id number] [address] [place] [address] [place] Eosinophils/100 WBC (Bld) 1.7 % Normal [facility] Comment on above: Order Comment: Speci men Type: BLOOD SPECIMEN Ordering Facility: [facility] [place] Address: [address] [place] [address] Performed By: #### 5 5454-3 #### [facility] CLIA [id number] [address] [place] [address] [place] Erythrocyte distribution width (RBC) [Ratio] 13.2 % Normal 11.5-15.0 [facility] Comment on above: Order Comment: Speci men Type: BLOOD SPECIMEN Ordering Facility: [facility] [place] Address: [address] [place] [address] Performed By: #### 5 5454-3 #### [facility] CLIA [id number] [address] [place] [address] [place] Hematocrit (Bld) [Volume fraction] 44.7 % Normal 36.0-46.0 [facility] Comment on above: Order Comment: Speci men Type: BLOOD SPECIMEN Ordering Facility: [facility] [place] Address: [address] [place] [address] Performed By: #### 5 5454-3 #### [facility] CLIA [id number] [address] [place] [address] [place] Hemoglobin (Bld) [Mass/Vol] 15.0 g/dL Normal 11.5-15.5 [facility] Comment on above: Order Comment: Speci men Type: BLOOD SPECIMEN Ordering Facility: [facility] [place] Address: [address] [place] [address] Performed By: #### 5 5454-3 #### [facility] CLIA [id number] [address] [place] [address] [place] Immature granulocytes (Bld) [#/Vol] 10*3/uL Normal <0.10 [facility] Comment on above: Order Comment: Speci men Type: BLOOD SPECIMEN Ordering Facility: [facility] [place] Address: [address] [place] [address] Performed By: #### 5 5454-3 #### [facility] CLIA [id number] [address] [place] [address] [place] Immature granulocytes/100 WBC (Bld) 0.1 % Normal [facility] Comment on above: Order Comment: Speci men Type: BLOOD SPECIMEN Ordering Facility: [facility] [place] Address: [address] [place] [address] Performed By: #### 5 5454-3 #### [facility] CLIA [id number] [address] [place] [address] [place] Lymphocytes (Bld) [#/Vol] 2.85 10*3/uL Normal 1.00-4.00 [facility] Comment on above: Order Comment: Speci men Type: BLOOD SPECIMEN Ordering Facility: [facility] [place] Address: [address] [place] [address] Performed By: #### 5 5454-3 #### [facility] CLIA [id number] [address] [place] [address] [place] Lymphocytes/100 WBC (Bld) 34.7 % Normal [facility] Comment on above: Order Comment: Speci men Type: BLOOD SPECIMEN Ordering Facility: [facility] [place] Address: [address] [place] [address] Performed By: #### 5 5454-3 #### [facility] CLIA [id number] [address] [place] [address] [place] MCH (RBC) [Entitic mass] 31.3 pg Normal 26.0-34.0 [facility] Comment on above: Order Comment: Speci men Type: BLOOD SPECIMEN Ordering Facility: [facility] [place] Address: [address] [place] [address] Performed By: #### 5 5454-3 #### [facility] CLIA [id number] [address] [place] [address] [place] MCHC (RBC) [Mass/Vol] 33.6 g/dL Normal 30.5-36.0 [facility] Comment on above: Order Comment: Speci men Type: BLOOD SPECIMEN Ordering Facility: [facility] [place] Address: [address] [place] [address] Performed By: #### 5 5454-3 #### [facility] CLIA [id number] [address] [place] [address] [place] MCV (RBC) [Entitic vol] 93.3 fL Normal 80.0-100.0 [facility] Comment on above: Order Comment: Speci men Type: BLOOD SPECIMEN Ordering Facility: [facility] [place] Address: [address] [place] [address] Performed By: #### 5 5454-3 #### [facility] CLIA [id number] [address] [place] [address] [place] Monocytes (Bld) [#/Vol] 0.56 10*3/uL Normal <0.87 [facility] Comment on above: Order Comment: Speci men Type: BLOOD SPECIMEN Ordering Facility: [facility] [place] Address: [address] [place] [address] Performed By: #### 5 5454-3 #### [facility] CLIA [id number] [address] [place] [address] [place] Monocytes/100 WBC (Bld) 6.8 % Normal [facility] Comment on above: Order Comment: Speci men Type: BLOOD SPECIMEN Ordering Facility: [facility] [place] Address: [address] [place] [address] Performed By: #### 5 5454-3 #### [facility] CLIA [id number] [address] [place] [address] [place] Neutrophils (Bld) [#/Vol] 4.62 10*3/uL Normal 1.45-7.50 [facility] Comment on above: Order Comment: Speci men Type: BLOOD SPECIMEN Ordering Facility: [facility] [place] Address: [address] [place] [address] Performed By: #### 5 5454-3 #### [facility] CLIA [id number] [address] [place] [address] [place] Neutrophils/100 WBC (Bld) 56.2 % Normal [facility] Comment on above: Order Comment: Speci men Type: BLOOD SPECIMEN Ordering Facility: [facility] [place] Address: [address] [place] [address] Performed By: #### 5 5454-3 #### [facility] CLIA [id number] [address] [place] [address] [place] Nucleated RBC (Bld) [#/Vol] 10*3/uL Normal <0.01 [facility] Comment on above: Order Comment: Speci men Type: BLOOD SPECIMEN Ordering Facility: [facility] [place] Address: [address] [place] [address] Performed By: #### 5 5454-3 #### [facility] CLIA [id number] [address] [place] [address] [place] Nucleated RBC/100 WBC (Bld) [Ratio] 0.0 /100 WBC Normal [facility] Comment on above: Order Comment: Speci men Type: BLOOD SPECIMEN Ordering Facility: [facility] [place] Address: [address] [place] [address] Performed By: #### 5 5454-3 #### [facility] CLIA [id number] [address] [place] [address] [place] Platelet mean volume (Bld) [Entitic vol] 10.8 fL Normal 9.0-12.7 [facility] Comment on above: Order Comment: Speci men Type: BLOOD SPECIMEN Ordering Facility: [facility] [place] Address: [address] [place] [address] Performed By: #### 5 5454-3 #### [facility] CLIA [id number] [address] [place] [address] [place] Platelets (Bld) [#/Vol] 267 10*3/uL Normal 150-400 [facility] Comment on above: Order Comment: Speci men Type: BLOOD SPECIMEN Ordering Facility: [facility] [place] Address: [address] [place] [address] Performed By: #### 5 5454-3 #### [facility] CLIA [id number] [address] [place] [address] [place] RBC (Bld) [#/Vol] 4.79 10*6/uL Normal 3.90-5.20 [facility] Comment on above: Order Comment: Speci men Type: BLOOD SPECIMEN Ordering Facility: [facility] [place] Address: [address] [place] [address] Performed By: #### 5 5454-3 #### [facility] CLIA [id number] [address] [place] [address] [place] WBC (Bld) [#/Vol] 8.22 10*3/uL Normal 3.70-11.00 [facility] Comment on above: Order Comment: Speci men Type: BLOOD SPECIMEN Ordering Facility: [facility] [place] Address: [address] [place] [address] Performed By: #### 5 5454-3 #### [facility] CLIA [id number] [address] [place] [address] OF [place] CNOVon 04-11-2025 CNOV Office Visit (FAMPWS ) -------- BOGDAN BATRES ([id number]) 1955 F Date Time Provider Department 04/11/25 3:00 PM KAI AYERS FAMPWS During your visit today, we recorded the following information about you: Pulse Respiration Blood pressure Weight 78/minute 16/minute 118/84 102.2 kg Height 1.651 m Kai Ayers MD 04/11/2025 8:55 PM Signed Chief Complaint Patient presents with: Well Adult HPI Bogdan Batres is a 69 year old female who presents here today for a Physical and chronic health issues. Patient with hx of A. Fib, HLP, elevated a1c, smoker, anxiety and panic disorder. Patient sees [facility] 03/2024 Mini-Cog Patient asked to remember the following three words: Banana, [place] and Chair Visuospatial/Executive Functioning: Clock drawin/2 (Normal clock with all number in correct sequence and position, hands are correct = 2 points, inability or refusal to draw a clock = 0) Three word recall: 12/04 Total score: 5/5 (Total score = word recall score + clock draw score) Bogdan is currently under the care of [facility] and has been taking atorvastatin, but discontinued it approximately one month ago due to concerns about potential side effects. She reports changes in her hands and skin, though she is uncertain if these are related to the medication. She denies recent fevers, frequent headaches, or sudden changes in hearing or vision. She does note that her current eyeglass prescription is over a year old and mentions a previous discussion about the potential need for cataract surgery. She denies any recent problems with her nose or throat, but has observed enlarged pores on her nose and occasional bloody nasal discharge, which she attributes to dryness during the winter. She denies any lumps or swelling in her neck. Bogdan reports dyspnea on exertion, which she notes is not more frequent than usual. She occasionally expectorates phlegm, but denies hemoptysis. She denies chest pain or palpitations. She notes that she usually wears compression socks during the day due to prolonged sitting, but has not worn them in the past few days, resulting in mild lower extremity edema. She reports weight gain since her last visit, attributing it to a sedentary lifestyle and lack of exercise due to hot weather. She denies frequent nausea, vomiting, diarrhea, or heartburn, and has not observed any blood in her stool or urine. She also denies dysuria or increased urinary frequency. Bogdan reports multiple skin lesions on her back, one of which she accidentally scraped off. She also notes persistent calloused skin on her elbows and easy bruising, which she attributes to her use of Eliquis. She denies any changes in her tolerance to heat or cold, increased thirst, syncope, seizures, or tremors. She reports that her anxiety has been well-managed. Bogdan also mentions a recent incident where she experienced a popping sensation in her left lower ribs while moving a heavy pot. This resulted in significant pain for about two weeks, particularly when driving, but the pain has since subsided to a mild ache. She did not observe any bruising around the area after the incident. Past medical history, appointments, medications, allergies reviewed. Previous Medical History PAST MEDICAL HISTORY Diagnosis Date Advance directive discussed with patient 10/09/2022 Discussed 10/2022: need copies Broken ankle, left, closed, initial encounter 11/18/2016 Dermatophytosis, nail 06/03/2017 Generalized anxiety disorder 12/20/2018 H/O actinic keratosis 06/03/2017 Dr. Moreno, dermatology. Lichen sclerosus 06/03/[address] 10/09/2022 DPA: [place] (son) Localized edema 03/21/2021 right ankle Lumbago 04/01/2006 Mixed hyperlipidemia 04/03/2011 Obesity, Class II, BMI 35-39.9 03/21/2021 Palpitations 06/23/2019 Panic disorder without agoraphobia 09/20/2006 Persistent atrial fibrillation (HCC) 04/21/2021 Smoker 03/23/2006 Started around 18 yo up to 1/2 a PPD, as of 12/2018 just under 1/2 a PPD. Well adult exam 10/11/2020 Last done: 10/11/2020 Previous Surgical History PAST SURGICAL HISTORY Procedure Laterality Date 2D ECHO (EXEP) 05/02/2021 EF=65%, LA mildly enlarged, 1+ [place], TI. COLSC FLX W/RMVL OF TUMOR POLYP LESION SNARE TQ 08/18/2012 nl mucosa, prob. hyperplastic, no adenoma NUCLEAR STRESS LEXISCAN (CARD) 05/02/2021 negative OPEN TREATMENT,TRIMALLEOLAR ANKLE FRACTURE Left 2014 PAST SURGICAL HISTORY OF 2009 precancerous lesions removed from legs and rt shoulder Family History FAMILY HISTORY Problem Relation Age of Onset Hypertension Mother Stroke Mother Alzheimer's Disease Mother other (heart arrhythmia) Mother AF on Xarelto other (fibrocystic) Mother BREASTS Alzheimer's Disease Father Arthritis Brother knee replaced other (other) Son 37 unspe (more content not included)... Normal [facility] Comprehensive metabolic 2000 panelon 04-11-2025 Albumin [Mass/Vol] 4.4 g/dL Normal 3.9-4.9 [facility] Comment on above: Order Comment: Speci men Type: BLOOD SPECIMEN Ordering Facility: [facility] [place] Address: [address] [place] [address] Performed By: #### 5 5454-3 #### [facility] CLIA [id number] [address] [place] [address] [place] ALP [Catalytic activity/Vol] 119 U/L Normal 34-123 [facility] Comment on above: Order Comment: Speci men Type: BLOOD SPECIMEN Ordering Facility: [facility] [place] Address: [address] [place] [address] Performed By: #### 5 5454-3 #### [facility] CLIA [id number] [address] [place] [address] [place] ALT [Catalytic activity/Vol] 16 U/L Normal 7-38 [facility] Comment on above: Order Comment: Speci men Type: BLOOD SPECIMEN Ordering Facility: [facility] [place] Address: [address] [place] [address] Performed By: #### 5 5454-3 #### [facility] CLIA [id number] [address] [place] [address] [place] Anion gap [Moles/Vol] 11 mmol/L Normal 8-15 [facility] Comment on above: Order Comment: Speci men Type: BLOOD SPECIMEN Ordering Facility: [facility] [place] Address: [address] [place] [address] Performed By: #### 5 5454-3 #### [facility] CLIA [id number] [address] [id number] [address] [place] AST [Catalytic activity/Vol] 16 U/L Normal 13-35 [facility] Comment on above: Order Comment: Speci men Type: BLOOD SPECIMEN Ordering Facility: [facility] [place] Address: [address] [place] [address] Performed By: #### 5 5454-3 #### [facility] CLIA [id number] [address] [place] [address] [place] Bilirubin [Mass/Vol] 0.6 mg/dL Normal 0.2-1.3 [facility] Comment on above: Order Comment: Speci men Type: BLOOD SPECIMEN Ordering Facility: [facility] [place] Address: [address] [place] [address] Performed By: #### 5 5454-3 #### [facility] CLIA [id number] [address] [place] [address] [place] Calcium [Mass/Vol] 9.4 mg/dL Normal 8.5-10.2 [facility] Comment on above: Order Comment: Speci men Type: BLOOD SPECIMEN Ordering Facility: [facility] [place] Address: [address] [place] [address] Performed By: #### 5 5454-3 #### [facility] CLIA [id number] [address] [place] [address] [place] Chloride [Moles/Vol] 100 mmol/L Normal 98-107 [facility] Comment on above: Order Comment: Speci men Type: BLOOD SPECIMEN Ordering Facility: [facility] [place] Address: [address] [place], [place] [address] Performed By: #### 5 5454-3 #### [facility] CLIA [id number] [address] [place], [place] [address] [place] CO2 [Moles/Vol] 28 mmol/L Normal 22-30 [facility] Comment on above: Order Comment: Speci men Type: BLOOD SPECIMEN Ordering Facility: [facility] [place] Address: [address] [place] [address] Performed By: #### 5 5454-3 #### [facility] CLIA [id number] [address] [place] [address] [place] [facility] Creatinine [Mass/Vol] 0.69 mg/dL Normal 0.58-0.96 [facility] Comment on above: Order Comment: Vic neri Type: BLOOD SPECIMEN Ordering Facility: [facility] [place] Address: [address] [place] [address] Performed By: #### 5 5454-3 #### [facility] CLIA [id number] [address] [place] [address] [place] Creatinine and Glomerular filtration rate.predicted panel (S/P/Bld) 93 mL/min/1.73m??? Normal >=60 [facility] Comment on above: Order Comment: Vic neri Type: BLOOD SPECIMEN Ordering Facility: [facility] [place] Address: [address] [place] [address] Result Comment: Christina mated Glomerular Filtration Rate (eGFR) is calculated using the 2020 CKD-EPI creatinine equation. This equation utilizes serum creatinine, sex, and age as parameters. The creatinine assay has traceable calibration to isotope dilution-mass spectrometry. Refer to KDIGO guidelines for clinical interpretation. In patients with unstable renal function, e.g. those with acute kidney injury, the eGFR may not accurately reflect actual GFR. Performed By: #### 5 5454-3 #### [facility] CLIA [id number] [address] [place] [address] [place] Glucose [Mass/Vol] 95 mg/dL Normal 74-99 [facility] Comment on above: Order Comment: Vic neri Type: BLOOD SPECIMEN Ordering Facility: [facility] [place] Address: [address] [place] [address] Result Comment: The [place] [employer] (ADA) provides guidance for cutoff values for fasting glucose and random glucose. The ADA defines fasting as no caloric intake for at least 8 hours. Fasting plasma glucose results between 100 to 125 mg/dL indicate increased risk for diabetes (prediabetes). Fasting plasma glucose results greater than or equal to 126 mg/dL meet the criteria for diagnosis of diabetes. In the absence of unequivocal hyperglycemia, results should be confirmed by repeat testing. In a patient with classic symptoms of hyperglycemia or hyperglycemic crisis, random plasma glucose results greater than or equal to 200 mg/dL meet the criteria for diagnosis of diabetes. Reference: Standards of Medical Care in Diabetes 2016, [place] [employer]. Diabetes Care. 2016.39(Suppl 1). Performed By: #### 5 5454-3 #### [facility] CLIA [id number] [address] [place] [address] [place] Potassium [Moles/Vol] 4.0 mmol/L Normal 3.7-5.1 [facility] Comment on above: Order Comment: Speci men Type: BLOOD SPECIMEN Ordering Facility: [facility] [place] Address: [address] [place] [address] Performed By: #### 5 5454-3 #### [facility] CLIA [id number] [address] [place] [address] [place] Protein [Mass/Vol] 7.4 g/dL Normal 6.3-8.0 [facility] Comment on above: Order Comment: Vinnyi men Type: BLOOD SPECIMEN Ordering Facility: [facility] [place] Address: [address] [place] [address] Performed By: #### 5 5454-3 #### [facility] CLIA [id number] [address] [place] [address] [place] Sodium [Moles/Vol] 139 mmol/L Normal 136-144 [facility] Comment on above: Order Comment: Speci men Type: BLOOD SPECIMEN Ordering Facility: [facility] [place] Address: [address] [place] [address] Performed By: #### 5 5454-3 #### [facility] CLIA [id number] [address] [place] [address] [place] Urea nitrogen [Mass/Vol] 18 mg/dL Normal 7-21 [facility] Comment on above: Order Comment: Speci men Type: BLOOD SPECIMEN Ordering Facility: [facility] [place] Address: [address] [place] [address] Performed By: #### 5 5454-3 #### [facility] CLIA [id number] [address] [place] [address] OF [facility] HbA1c (Bld)on 04-11-2025 Average glucose Estimated from glycated hemoglobin (Bld) [Mass/Vol] 114 mg/dL Normal [facility] Comment on above: Order Comment: Vic neri Type: BLOOD SPECIMEN Ordering Facility: [facility] [place] Address: [address] [place] [address] Result Comment: eAG: (Estimated average glucose) is a calculated value from HgbA1c and is medical field representative of the average blood glucose level in the last 2-3 month period. Performed By: #### 5 5454-3 #### [facility] CLIA [id number] [address] [place] [address] OF [facility] HbA1c (Bld) [Mass fraction] 5.6 % Normal 4.3-5.6 [facility] Comment on above: Order Comment: Vic neri Type: BLOOD SPECIMEN Ordering Facility: [facility] [place] Address: [address] [place] [address] Result Comment: [place] [employer] guidelines indicate that patients with HgbA1c in the range 5.7-6.4% are at increased risk for development of diabetes, and intervention by lifestyle modification may be beneficial. HgbA1c greater or equal to 6.5% is considered diagnostic of diabetes. Performed By: #### 5 5454-3 #### [facility] CLIA [id number] [address] [place] [address] [place] LIPID PANEL, NONFASTINGon Cholesterol [Mass/Vol] 244 mg/dL High <200 [facility] Comment on above: Order Comment: Vic neri Type: BLOOD SPECIMEN Ordering Facility: [facility] [place] Address: [address] [place] [address] Result Comment: <200 mg/dL, Desirable 200-239 mg/dL, Borderline high >239 mg/dL, High Performed By: #### 5 5454-3 #### [facility] CLIA [id number] [facility] [address] HDL CHOLESTEROL, NF 62 mg/dL Normal >39 [facility] Comment on above: Order Comment: Vic neri Type: BLOOD SPECIMEN Ordering Facility: [facility] [place] Address: [address] [place] [address] Result Comment: 40-5 9 mg/dL, Acceptable >59 mg/dL, High: Negative risk factor for coronary heart disease <40 mg/dL, Low: Positive risk factor for coronary heart disease Performed By: #### 5 5454-3 #### [facility] CLIA [id number] [address] [place] [address] LDL CHOLESTEROL CALCULATED, NF 165 mg/dL High <100 [facility] Comment on above: Order Comment: Vic neri Type: BLOOD SPECIMEN Ordering Facility: [facility] [place] Address: [address] [place] [address] Result Comment: <100 mg/dL, Optimal 100-129 mg/dL, Near optimal/above optimal 130-159 mg/dL, Borderline high 160-189 mg/dL, High >189 mg/dL, Very high Secondary prevention optimal LDL Cholesterol levels are recommended to be <70 mg/dL LDL cholesterol is calculated using the Graff-NIH equation. Performed By: #### 5 5454-3 #### [facility] CLIA [id number] [address] [place] [address] LDL/HDL RATIO, NF 2.66 mg/dL High <2.54 [facility] Comment on above: Order Comment: Vic daron Type: BLOOD SPECIMEN Ordering Facility: [facility] [place] Address: [address] [place] [address] Result Comment: Evangelist zimmerman: 1. National Cholesterol Education Program ATP III Guideline At-A-Glance Quick Desk Reference: National Heart, Lung, and Blood Start. National Institutes of Health. 2001: NIH Publication No. 01-3305. 2. An International Atherosclerosis Society position paper: global recommendations for the management of dyslipidemia: executive summary, Atherosclerosis. 2014: 232(2):410-413. Performed By: #### 5 5454-3 #### [facility] CLIA [id number] [address] [place] [address] [place] HDL CHOL, NF 182 mg/dL High <130 [facility] Comment on above: Order Comment: Vic neri Type: BLOOD SPECIMEN Ordering Facility: [facility] [place] Address: [address] [place] [address] Result Comment: <130 mg/dL, Optimal 130-159 mg/dL, Near optimal/above optimal 160-189 mg/dL, Borderline high 190-219 mg/dL, High >219 mg/dL, Very high Secondary prevention optimal non HDL Cholesterol levels are recommended to be <100 mg/dL Performed By: #### 5 5454-3 #### [facility] CLIA [id number] [address] [place] [address] T CHOL/HDL RATIO NF 3.94 mg/dL Normal <5.10 [facility] Comment on above: Order Comment: Vic neri Type: BLOOD SPECIMEN Ordering Facility: [facility] [place] Address: [address] [place] [address] Performed By: #### 5 5454-3 #### [facility] CLIA [id number] [address] [place] [address] [place] TRIGLYCERIDES, NF 96 mg/dL Normal <150 [facility] Comment on above: Order Comment: Vic neri Type: BLOOD SPECIMEN Ordering Facility: [facility] [place] Address: [address] [place] [address] Result Comment: <150 mg/dL, Normal 150-199 mg/dL, Borderline high 200-499 mg/dL, High >499 mg/dL, Very high Performed By: #### 5 5454-3 #### [facility] CLIA [id number] [address] [place] [address] [place] VLDL CHOLESTEROL, NF 18 mg/dL Normal <30 [facility] Comment on above: Order Comment: Speci men Type: BLOOD SPECIMEN Ordering Facility: [facility] [place] Address: [address] [place] [address] Performed By: #### 5 5454-3 #### [facility] CLIA [id number] [address] [place] [address] [place] TSH SerPl-aCncon 04-11-2025 TSH Qn 1.140 m[IU]/L Normal 0.270-4.200 [facility] Comment on above: Order Comment: Speci men Type: BLOOD SPECIMEN Ordering Facility: [facility] [place] Address: [address] [place] [address] Performed By: #### 5 5454-3 #### [facility] CLIA [id number] [address] [place] [address] [place] Urinalysis complete panel (U )on 04-11-2025 Bacteria LM.HPF (Urine sed) [#/Area] Negative Normal Negative [facility] Comment on above: Order Comment: Speci men Type: URINE SPECIMEN Ordering Facility: [facility] [place] Address: [address] [place] [address] Performed By: #### 2 4356-8 #### [facility] CLIA [id number] [address] [place] [address] [place] Bilirubin Ql (U) Negative Normal Negative [facility] Comment on above: Order Comment: Speci men Type: URINE SPECIMEN Ordering Facility: [facility] [place] Address: [address] [place] [address] Performed By: #### 2 4356-8 #### [facility] CLIA [id number] [address] [place] [address] [place] Clarity (Unsp spec) Clear Normal Clear [facility] Comment on above: Order Comment: Speci men Type: URINE SPECIMEN Ordering Facility: [facility] [place] Address: [address] [place] [address] Performed By: #### 2 4356-8 #### [facility] CLIA [id number] [address] [place] [address] [place] Color (U) Yellow Normal Yellow [facility] Comment on above: Order Comment: Speci men Type: URINE SPECIMEN Ordering Facility: [facility] [place] Address: [address] [place] [address] Performed By: #### 2 4356-8 #### [facility] CLIA [id number] [address] [place] [address] [place] Epithelial cells LM.HPF (Urine sed) [#/Area] None Seen Normal [facility] Comment on above: Order Comment: Speci men Type: URINE SPECIMEN Ordering Facility: [facility] [place] Address: [address] [place] [address] Performed By: #### 2 4356-8 #### [facility] CLIA [id number] [address] [place] [address] [place] Glucose Test strip (U) [Mass/Vol] Negative Normal Negative [facility] Comment on above: Order Comment: Speci men Type: URINE SPECIMEN Ordering Facility: [facility] [place] Address: [address] [place] [address] Performed By: #### 2 4356-8 #### [facility] CLIA [id number] [address] [place] [address] [place] Hemoglobin Ql (U) Negative Normal Negative [facility] Comment on above: Order Comment: Speci men Type: URINE SPECIMEN Ordering Facility: [facility] [place] Address: [address] [place] [address] Performed By: #### 2 4356-8 #### [facility] CLIA [id number] [address] [place] [address] [place] Hyaline casts (Urine sed) [#/Area] 0 /[LPF] Normal 0 /LPF [facility] Comment on above: Order Comment: Speci men Type: URINE SPECIMEN Ordering Facility: [facility] [place] Address: [address] [place] [address] Performed By: #### 2 4356-8 #### [facility] CLIA [id number] [address] [place] [address] [place] Ketones Ql (U) Negative Normal Negative [facility] Comment on above: Order Comment: Speci men Type: URINE SPECIMEN Ordering Facility: [facility] [place] Address: [address] [place] [address] Performed By: #### 2 4356-8 #### [facility] CLIA [id number] [address] [place] [address] [place] Leukocyte esterase Test strip Ql (U) 1+ Abnormal Negative [facility] Comment on above: Order Comment: Speci men Type: URINE SPECIMEN Ordering Facility: [facility] [place] Address: [address] [place] [address] Performed By: #### 2 4356-8 #### [facility] CLIA [id number] [address] [place] [address] [place] Nitrite Ql (U) Negative Normal Negative [facility] Comment on above: Order Comment: Speci men Type: URINE SPECIMEN Ordering Facility: [facility] [place] Address: [address] [place] [address] Performed By: #### 2 4356-8 #### [facility] CLIA [id number] [address] [place] [address] [place] pH (U) 6.5 [pH] Normal <8.5 [facility] Comment on above: Order Comment: Speci men Type: URINE SPECIMEN Ordering Facility: [facility] [place] Address: [address] [place] [address] Performed By: #### 2 4356-8 #### [facility] CLIA [id number] [address] [place], [place] [address] [place] Protein (U) [Mass/Vol] Negative Normal Negative [facility] Comment on above: Order Comment: Speci men Type: URINE SPECIMEN Ordering Facility: [facility] [place] Address: [address] [place] [address] Performed By: #### 2 4356-8 #### [facility] CLIA [id number] [address] [place] [address] [place] RBC LM.HPF (Urine sed) [#/Area] 0-2 /HPF Normal 0-2 /HPF [facility] Comment on above: Order Comment: Speci men Type: URINE SPECIMEN Ordering Facility: [facility] [place] Address: [address] [place] [address] Performed By: #### 2 4356-8 #### [facility] CLIA [id number] [address] [place] [address] [place] Specific gravity (U) [Rel density] 1.020 Normal 1.005-1.030 [facility] Comment on above: Order Comment: Speci men Type: URINE SPECIMEN Ordering Facility: [facility] [place] Address: [address] [place] [address] Performed By: #### 2 4356-8 #### [facility] CLIA [id number] [address] [place] [address] [place] Urobilinogen Ql (U) 0.2 EU/dL Normal 0.2-1.0 EU/dL [facility] Comment on above: Order Comment: Speci men Type: URINE SPECIMEN Ordering Facility: [facility] [place] Address: [address] [place] [address] Performed By: #### 2 4356-8 #### [facility] CLIA [id number] [address] [place] [address] [place] WBC LM.HPF (Urine sed) [#/Area] 0-5 /HPF Normal 0-5 /HPF [facility] Comment on above: Order Comment: Speci men Type: URINE SPECIMEN Ordering Facility: [facility] [place] Address: [address] [place] [address] Performed By: #### 2 4356-8 #### [facility] CLIA [id number] [address] [place], [place] [address] [place] CNOVon 09-13-2024 CNOV Office Visit (FAMPWS ) -------- BOGDAN BATRES ([id number]) 1955 F Date Time Provider Department 09/13/24 5:40 PM [facility] During your visit today, we recorded the following information about you: Pulse Respiration Blood pressure Weight 70/minute 16/minute 118/78 100.2 kg Kai Ayers MD 09/13/2024 8:41 PM Signed Chief Complaint Patient presents with: F/U 6 months HPI Bogdan Contreras Medardo is a 68 year old female who presents here today for 6 month follow up. Patient with hx of A. Fib, HLP, elevated a1c, smoker, anxiety and panic disorder. Past medical history, appointments, medications, allergies reviewed. Patient sees [facility] 03/2024 Patient has been doing ok. Stopped taking the Atorvastatin due to what she had read about statins. Doing ok with the klonopin. Past medical history, appointments, medications, allergies reviewed. Previous Medical History PAST MEDICAL HISTORY Diagnosis Date Advance directive discussed with patient 10/09/2022 Discussed 10/2022: need copies Broken ankle, left, closed, initial encounter 11/18/2016 Dermatophytosis, nail 06/03/2017 Generalized anxiety disorder 12/20/2018 H/O actinic keratosis 06/03/2017 Dr. Moreno, dermatology. Lichen sclerosus 06/03/[address] 10/09/2022 DPA: Cachorro (son) Localized edema 03/21/2021 right ankle Lumbago 04/01/2006 Mixed hyperlipidemia 04/03/2011 Obesity, Class II, BMI 35-39.9 03/21/2021 Palpitations 06/23/2019 Panic disorder without agoraphobia 09/20/2006 Persistent atrial fibrillation (HCC) 04/21/2021 Smoker 03/23/2006 Started around 18 yo up to 1/2 a PPD, as of 12/2018 just under 1/2 a PPD. Well adult exam 10/11/2020 Last done: 10/11/2020 Previous Surgical History PAST SURGICAL HISTORY Procedure Laterality Date 2D ECHO (EXEP) 05/02/2021 EF=65%, LA mildly enlarged, 1+ [place], TI. COLSC FLX W/RMVL OF TUMOR POLYP LESION SNARE TQ 08/18/2012 nl mucosa, prob. hyperplastic, no adenoma NUCLEAR STRESS LEXISCAN (CARD) 05/02/2021 negative OPEN TREATMENT,TRIMALLEOLAR ANKLE FRACTURE Left 2014 PAST SURGICAL HISTORY OF 2009 precancerous lesions removed from legs and rt shoulder Family History FAMILY HISTORY Problem Relation Age of Onset Hypertension Mother Stroke Mother Alzheimer's Disease Mother other (heart arrhythmia) Mother AF on Xarelto other (fibrocystic) Mother BREASTS Alzheimer's Disease Father Arthritis Brother knee replaced Patient Allergies ALLERGIES Allergen Reactions Buspar [Buspirone] Other: See Comments Increased depression Celexa [Citalopram] Other: See Comments Increased anxiety and slight depression. Current Medications Current Outpatient Medications on File Prior to Visit Medication Sig metoprolol succinate ER (TOPROL XL) 50 mg 24 hr tablet Take 1 tablet by mouth once daily. hydroCHLOROthiazide 12.5 mg capsule Take 1 capsule by mouth once daily. clobetasol (TEMOVATE) 0.05 % ointment Use only a thin layer over affected area. Use 1-3 times weekly for maintenance nystatin (MYCOSTATIN) cream Apply 1 application to affected area two times a day. clonazePAM (KLONOPIN) 0.5 mg tablet Take 1/2 a once daily as needed for anxiety atorvastatin (LIPITOR) 10 mg tablet Take 1 tablet by mouth once daily. ELIQUIS 5 mg tab(s) TAKE 1 TAB BY MOUTH TWICE DAILY. STOP USING XARELTO calcium carbonate 600 mg-cholecalciferol 200 units 600 mg-5 mcg (200 unit) tab Take 1 tablet by mouth once daily. Cholecalciferol, Vitamin D3, (VITAMIN D-3) 50 mcg (2,000 unit) cap Take one daily FOLIC ACID/MULTIVIT-MIN/LUTEIN (CENTRUM SILVER ORAL) Take 1 tablet by mouth once daily. Cranberry 500 mg cap Take 2 capsules by mouth once daily. No current facility-administered medications on file prior to visit. Social History Social History Tobacco Use Smoking status: Some Days Current packs/day: 0.25 Average packs/day: 0.3 packs/day for 30.0 years (7.5 ttl pk-yrs) Types: Cigarettes Smokeless tobacco: Never Vaping Use Vaping status: Never Used Substance Use Topics Alcohol use: Yes Comment: rare Drug use: No Review of Symptoms REVIEW OF SYSTEMS GENERAL: No weight loss, malaise or fevers RESPIRATORY: Negative for cough, hemoptysis, wheezing, COPD, dyspnea or shortness of breath CARDIOVASCULAR: Negative for chest pain, increased leg swelling, hypertension, CHF or palpitations GI: No nausea, vomiting, or diarrhea and No frequent heartburn or reflux symptoms PSYCH: hs been doing ok. Uses the klonopin prn. ENDOCRINE: Negative for cold or heat intolerance, polyuria, polydipsia and goiter NEURO: No history of headaches, syncope, paralysis, seizures or tremors EXAM: BP 118/78 Pulse 70 Resp 16 Wt 100.2 kg (221 lb) LMP 11/16/2005 BMI 36.22 kg/m? Last 4 Encounter Wt Readings: Date: Wt: 09/13/2024 100.2 kg (221 lb) 03/29/2024 98.4 k (more content not included)... Normal [facility] CBC W Auto Differential pane l (Bld)on 03-21-2022 Abs Immature Gran <0.03 <0.10 k/uL [facility] Basophils (Bld) [#/Vol] 10*3/uL <0.11 k/uL [facility] Basophils/100 WBC (Bld) 0.3 % [facility] Differential cell count method Nom (Bld) Auto [facility] Eosinophils (Bld) [#/Vol] 0.24 10*3/uL <0.46 k/uL [facility] Eosinophils/100 WBC (Bld) 3.6 % [facility] Erythrocyte distribution width (RBC) [Ratio] 13.8 % 11.5 - 15.0 % [facility] Hematocrit (Bld) [Volume fraction] 42.6 % 36.0 - 46.0 % [facility] Hemoglobin (Bld) [Mass/Vol] 13.9 g/dL 11.5 - 15.5 g/dL [facility] Immature Gran % 0.2 % [facility] Lymphocytes (Bld) [#/Vol] 2.22 10*3/uL 1.00 - 4.00 k/uL [facility] Lymphocytes/100 WBC (Bld) 33.7 % [facility] MCH (RBC) [Entitic mass] 30.8 pg 26.0 - 34.0 pg [facility] MCHC (RBC) [Mass/Vol] 32.6 g/dL 30.5 - 36.0 g/dL [facility] MCV (RBC) [Entitic vol] 94.5 fL 80.0 - 100.0 fL [facility] Monocytes (Bld) [#/Vol] 0.45 10*3/uL <0.87 k/uL [facility] Monocytes/100 WBC (Bld) 6.8 % [facility] Neutrophils (Bld) [#/Vol] 3.64 10*3/uL 1.45 - 7.50 k/uL [facility] Neutrophils/100 WBC (Bld) 55.4 % [facility] Nucleated RBC (Bld) [#/Vol] 10*3/uL <0.01 k/uL [facility] Nucleated RBC/100 WBC (Bld) [Ratio] 0.0 /100 WBC [facility] Platelet mean volume (Bld) [Entitic vol] 11.6 fL 9.0 - 12.7 fL [facility] Platelets (Bld) [#/Vol] 211 10*3/uL 150 - 400 k/uL [facility] RBC (Bld) [#/Vol] 4.51 10*6/uL 3.90 - 5.2 0 m/uL [facility] WBC (Bld) [#/Vol] 6.58 10*3/uL 3.70 - 11. 00 k/uL [facility] Vital Signs Date Time Vital Sign Value Performing Clinician Ethel draper 05-24-2025 15:29-0400 Body height 165.[address] Kai Ayers MD Work Phone: [facility] 05-24-2025 15:29-0400 Body mass index (BMI) [Ratio] 37 kg/m2 Dr. Kai Ayers MD Work Phone: [facility] 05-24-2025 15:29-0400 Body weight 101.[address] Kai Ayers MD Work Phone: [facility] 05-24-2025 15:29-0400 Diastolic blood pressure 80 mm[Hg] Dr. Kai Ayers MD Work Phone: [facility] 05-24-2025 15:29-0400 Heart rate 83 /min Dr. Kai Ayers MD Work Phone: [facility] 05-24-2025 15:29-0400 Respiratory rate 16 /min Dr. Kai Ayers MD Work Phone: [facility] 05-24-2025 15:29-0400 Systolic blood pressure 128 mm[Hg] Dr. Kai Ayers MD Work Phone: [facility] 04-11-2025 15:17-0400 Body height 165.1 cm Kai Ayers MD Work Phone: [facility] 04-11-2025 15:17-0400 Body mass index (BMI) [Ratio] 37.48 kg/m2 Kai Ayers MD Work Phone: [facility] 04-11-2025 15:17-0400 Body weight 102.15 kg Kai Ayers MD Work Phone: [facility] 04-11-2025 15:17-0400 Diastolic blood pressure 84 mm[Hg] Kai Ayers MD Work Phone: [facility] 04-11-2025 15:17-0400 Heart rate 78 /min Kai Ayers MD Work Phone: [facility] 04-11-2025 15:17-0400 Respiratory rate 16 /min Kai Ayers MD Work Phone: [facility] 04-11-2025 15:17-0400 Systolic blood pressure 118 mm[Hg] Kai Ayers MD Work Phone: [facility] 03-29-2024 11:45-0400 Body height 166.4 cm Kai Ayers MD Work Phone: [facility] 03-29-2024 11:45-0400 Body mass index (BMI) [Ratio] 35.56 kg/m2 Kai Ayers MD Work Phone: [facility] 03-29-2024 11:45-0400 Body weight 98.43 kg Kai Ayers MD Work Phone: [facility] 03-29-2024 11:45-0400 Diastolic blood pressure 84 mm[Hg] Kai Ayers MD Work Phone: [facility] 03-29-2024 11:45-0400 Heart rate 74 /min Kai Ayers MD Work Phone: [facility] 03-29-2024 11:45-0400 Systolic blood pressure 124 mm[Hg] Kai Ayers MD Work Phone: [facility] 10-09-2022 14:57-0500 Body height 166.4 cm Kai Ayers MD Work Phone: [facility] 10-09-2022 14:57-0500 Body weight 100.7 kg Kai Ayers MD Work Phone: [facility] 10-09-2022 14:57-0500 Diastolic blood pressure 78 mm[Hg] Kai Ayers MD Work Phone: [facility] 10-09-2022 14:57-0500 Heart rate 60 /min Kai Ayers MD Work Phone: [facility] 10-09-2022 14:57-0500 Respiratory rate 16 /min Kai Ayers MD Work Phone: [facility] 10-09-2022 14:57-0500 Systolic blood pressure 126 mm[Hg] Kai Ayers MD Work Phone: [facility] 03-20-2022 14:01-0400 Body weight 97.98 kg Kai Ayers MD Work Phone: [facility] 03-20-2022 14:01-0400 Diastolic blood pressure 84 mm[Hg] Kai Ayers MD Work Phone: [facility] 03-20-2022 14:01-0400 Heart rate 72 /min Kai Ayers MD Work Phone: [facility] 03-20-2022 14:01-0400 Respiratory rate 16 /min Kai Ayers MD Work Phone: [facility] 03-20-2022 14:01-0400 Systolic blood pressure 124 mm[Hg] Kai Ayers MD Work Phone: [facility] Encounters Encounter Date Encounter Type Care Provider Facility Start: 06-28-2025 ambulatory KAI AYERS Facili ty:[facility] Start: 05-25-2025 End: 05-25-2025 Chart abstracting Kai Ayers MD Work Phone: [facility] Comment on above: Abstract (Cardiology OV note) Start: 05-24-2025 End: 05-24-[address] Rah Joseph MD -[facility] Work Phone: Start: 05-24-2025 End: 05-24-[address] Kai Ayers MD Work Phone: [facility] Start: 04-16-2025 End: 04-18-2025 Follow-up encounter Kai Ayers MD Work Phone: [facility] Start: 04-11-2025 End: 04-11-2025 ambulatory KAI AYERS Facility:[facility] Start: 04-11-2025 Encounter for genera l adult medical examination without abnormal findings KAI AYERS [facility] Start: 04-11-2025 End: 04-11-2025 ambulatory KAI AYERS Facility:[facility] Start: 04-11-2025 End: 04-11-2025 Patient encounter procedure Kai Ayers MD Work Phone: [facility] Comment on above: Well adult exam (Kayleigh bryn Dx); Mixed hyperlipidemia; Elevated hemoglobin A1c; Persistent atrial fibrillation (HCC); Generalized anxiety disorder; Panic disorder without agoraphobia; Obesity, Class II, BMI 35-39.9; Smoker; Age-related osteoporosis without current pathological fracture; Advance directive discussed with patient; Screening for colon cancer; Need for vaccination; Screening for depression Start: 04-11-2025 End: 04-11-2025 Patient encounter status Kai Ayers MD Work Phone: [facility] Start: 03-02-2025 End: 03-03-2025 Refill Kai Ayers MD Work Phone: [facility] Comment on above: Refill Request Start: 02-08-2025 End: 02-08-2025 Refill Kai Ayers MD Work Phone: Administration Comment on above: Refill Request Start: 01-30-2025 End: 03-02-2025 ambulatory Kai Ayers MD Work Phone: [facility] [place] Start: 01-19-2025 End: 01-20-2025 Refill Kai Ayers MD Work Phone: [facility] Comment on above: Refill Request Start: 09-13-2024 End: 09-13-2024 ambulatory KAI AYERS Facility:[facility] Start: 08-17-2024 End: 08-17-2024 Refill Kai Ayers MD Work Phone: [facility] [place] Comment on above: Refill Request Start: 06-14-2024 End: 06-14-2024 Refill Kai Ayers MD Work Phone: [facility] [place] Comment on above: Refill Request Start: 05-25-2024 End: 05-25-2024 Telephone encounter Kai Ayers MD Work Phone: Family [facility] [place] Comment on above: Refill Request (Not on current list) Refill Request Start: 03-30-2024 Telephone encounter Kai Ayers MD Work Phone: Family [facility] [place] Comment on above: Results Start: 03-29-2024 End: 03-29-2024 Patient encounter procedure Kai Ayers MD Work Phone: [facility] [place] Comment on above: Well adult exam (Kayleigh bryn Dx); Mixed hyperlipidemia; Elevated hemoglobin A1c; Persistent atrial fibrillation (HCC); Generalized anxiety disorder; Panic disorder without agoraphobia; Obesity, Class II, BMI 35-39.9; Advance directive discussed with patient; Screening for colon cancer; Screening for osteoporosis; Asymptomatic menopause Start: 03-29-2024 End: 03-29-2024 Patient encounter status Kai Ayers MD Work Phone: [facility] Work Phone: Start: 03-28-2024 Chart abstracting Kai jimenes MD Work Phone: Family [facility] [place] Comment on above: Outside Cardio Start: 03-06-2024 Refill Kai edge MD Work Phone: [facility] [place] Comment on above: Refill Request Start: 03-01-2024 ambulatory Kai edge MD Work Phone: Internal Medicine [place] [id number] Start: 02-14-2024 Refill Kai edge MD Work Phone: [facility] [place] Comment on above: Refill Request Start: 12-29-2023 Refill Kai edge MD Work Phone: [facility] [place] Comment on above: Refill Request Start: 09-15-2023 Refill Kai edge MD Work Phone: [facility] [place] Comment on above: Refill Request Start: 09-03-2023 Refill Kai edge MD Work Phone: [facility] [place] Comment on above: Refill Request Start: 08-16-2023 Refill Kai edge MD Work Phone: [facility] [place] Comment on above: Refill Request Start: 05-05-2023 Refill Kai edge MD Work Phone: [facility] [place] Comment on above: Refill Request Start: 04-08-2023 Refill Kai edge MD Work Phone: [facility] [place] Comment on above: Refill Request Start: 03-24-2023 ambulatory Kai edge MD Work Phone: Internal Medicine [facility] Start: 03-22-2023 Chart abstracting Kai jimenes MD Work Phone: [facility] [place] Comment on above: Consult (Cardiology /) Start: 02-15-2023 Refill Kai edge MD Work Phone: [facility] [place] Comment on above: Refill Request Start: 10-10-2022 Telephone encounter Kai Ayers MD Work Phone: [facility] [place] Comment on above: Results Start: 10-09-2022 End: 10-09-2022 Patient encounter procedure Kai Ayers MD Work Phone: [facility] [place] Comment on above: Well adult exam (Kayleigh bryn Dx); Mixed hyperlipidemia; Elevated hemoglobin A1c; Generalized anxiety disorder; Panic disorder without agoraphobia; Persistent atrial fibrillation (HCC); Smoker; Obesity, Class II, BMI 35-39.9; Screening for colon cancer; Advance directive discussed with patient; Encounter for immunization Start: 10-09-2022 End: 10-09-2022 Patient encounter status Kai Ayers MD Work Phone: [facility] [place] Start: 09-22-2022 Telephone encounter Kai Ayers MD Work Phone: [facility] [place] Comment on above: Medication Question Start: 09-18-2022 Refill Kai edge MD Work Phone: [address] [place] [address] Comment on above: Refill Request Start: 08-20-2022 Refill Kai edge MD Work Phone: [facility] [place] Comment on above: Refill Request Start: 04-15-2022 ambulatory Kai edge MD Work Phone: Internal [facility] Start: 03-23-2022 Telephone encounter Ruth linton PA-C Work Phone: [facility] [place] Comment on above: Results Start: 03-20-2022 End: 03-20-2022 Patient encounter procedure Kai Ayers MD Work Phone: [facility] [place] Comment on above: Mixed hyperlipidemia (Primary Dx); Panic disorder without agoraphobia; Generalized anxiety disorder; Elevated hemoglobin A1c; Persistent atrial fibrillation (HCC); Smoker; Obesity, Class II, BMI 35-39.9; Encounter for immunization; Medication management; Abnormal thyroid blood test Start: 02-18-2022 Refill Kai edge MD Work Phone: [facility] Comment on above: Refill Request Start: 08-18-2021 Telephone encounter Kai Ayers MD Work Phone: [facility] [place] Comment on above: Appointment Start: 10-11-2020 Patient encounter status Carlos Alberto Ayers MD Work Phone: [facility] Work Phone: Procedures Date Procedure Procedure Detail Performing Clinician Start: 04-11-2025 Adult depression scr eening assessment Kai Ayers MD Work Phone: Start: 04-11-2025 Lipid 1996 panel - S kartik or Plasma Kai Ayers MD Work Phone: Start: 03-29-2024 Lipid 1996 panel - S kartik or Plasma Kai Ayers MD Work Phone: Start: 10-09-2022 INFLUENZA SEASONAL QUADRIVALENT HIGH DOSE AGE 65+ Kai Ayers MD Work Phone: Start: 10-09-2022 Lipid 1996 panel - S kartik or Plasma Kai Ayers MD Work Phone: Start: 10-29-2020 Mammography Kai jimenes MD Work Phone: Start: 08-18-2012 Colonoscopy Kai jimenes MD Work Phone: Plan of Treatment Date Care Activity Detail Author Start: 04-11-2035 Urine microalbumin profile DTaP,Tdap,Td Vaccine (3 - Td or Tdap) [facility] Start: 04-11-2030 Lipid panel Lipid Screening [facility] Start: 2029 RSV Vaccine (1 - 1-d ose 75+ series) RSV Vaccine (1 - 1-dose 75+ series) [facility] Start: 03-29-2029 Lipid panel Lipid Screening [facility] Start: 04-11-2028 Diabetes Screening Diabetes Screenin g [facility] Start: 10-09-2027 Lipid 1996 panel - Serum or Plasma Lipid Screening [facility] Start: 10-09-2027 Lipid panel Lipid Screening [facility] Start: 10-09-2027 LIPID SCREEN LIPID SCREEN [facility] Start: 03-29-2027 Diabetes Screening Diabetes Screenin g [facility] Start: 03-20-2027 LIPID SCREEN LIPID SCREEN [facility] Start: 04-11-2026 Depression Screening Depression Scre ening [facility] Start: 04-11-2026 Shingrix Vaccine (1 of 2) Shingrix Vaccine (1 of 2) [facility] Comment on above: Postponed from 11/23 (Declined at this time) Start: 03-21-2026 LIPID SCREEN LIPID SCREEN [facility] Start: 10-15-2025 End: 10-15-2025 Patient encounter procedure 10/15/2025 4:20 PM EST Office Visit [facility] [address] [place] [address] [place] [phone] Lisa Klein APRN.[facility] [address] [place] [id number] 6 mo f/u [facility] [place] Comment on above: 6 mo f/u Start: 10-09-2025 DIABETES SCREEN DIABETES SCREEN [facility] Start: 10-09-2025 Diabetes Screening Diabetes Screenin g [facility] Start: 06-04-2025 Influenza vaccination Influenza Vacc ine (#1) [facility] Start: 05-25-2025 End: 05-25-2025 Nursing evaluation of patient and report 05/25/2025 12:30 PM EDT Nurse Visit [facility] [address] [place] [address] [place] [phone] Nurse, [address] [place] [phone] Shingles vaccine [facility] Comment on above: Shingles vaccine Start: 04-11-2025 End: 04-11-2025 Patient encounter procedure 04/11/2025 3:00 PM EDT Office Visit [facility] [address] [place] [address] Kai Ayers MD [address] [place], [place] [phone] Medicare wellness (R/S from provider template change on 03/14) [facility] [place] Comment on above: Medicare wellness (R /S from provider template change on 03/14) Start: 03-29-2025 RSV Vaccine (1 - 1-d ose 60+ series) RSV Vaccine (1 - 1-dose 60+ series) [facility] Comment on above: Postponed from 11/23 (Insurance Coverage) Start: 03-29-2025 Shingrix Vaccine (1 of 2) Shingrix Vaccine (1 of 2) [facility] Comment on above: Postponed from 11/23 (Insurance Coverage) Start: 03-20-2025 DIABETES SCREEN DIABETES SCREEN [facility] Start: 11-13-2024 Urine microalbumin profile [facility] Start: 10-04-2024 Advance Directive Discussion Advance Directive Discussion [facility] Start: 10-03-2024 Behavioral Health Screening Behavioral Health Screening [facility] Comment on above: Postponed from 10/04 (Declined at this time) Start: 09-13-2024 End: 09-13-2024 Patient encounter procedure 09/13/2024 5:40 PM EST Office Visit Family [facility] [address] [place] [address] Kai Ayers MD [address] [place] [address] 6 month follow up [facility] Comment on above: 6 month follow up Start: 06-04-2024 Influenza vaccination C [facility] Start: 03-29-2024 End: 03-29-2024 Patient encounter procedure 03/29/2024 11:20 AM EDT Office Visit Family [facility]illo [address] [place], [place] [address] Kai Ayers MD [address] [place], [place] [phone] medicare wellness [facility] [place] Comment on above: medicare wellness Start: 03-21-2024 DIABETES SCREEN DIABETES SCREEN [facility] Start: 10-09-2023 COVID-19 VACCINE (3 - Booster for Pfizer series) COVID-19 VACCINE (3 - Booster for Pfizer series) [facility] Comment on above: Postponed from 10/07 (Declined at this time) Start: 10-09-2023 COVID-19 VACCINE (3 - Pfizer series) COVID-19 VACCINE (3 - Pfizer series) [facility] Comment on above: Postponed from 10/07 (Declined at this time) Start: 10-09-2023 SHINGRIX VACCINE (1 of 2) SHINGRIX VACCINE (1 of 2) [facility] Comment on above: Postponed from 11/23 (Declined at this time) Start: 10-04-2023 Advance Directive Discussion Advance Directive Discussion [facility] Start: 10-04-2023 Behavioral Health Screening Behavioral Health Screening [facility] Start: 06-04-2023 Covid-19 Vaccine () Covid-19 Vaccine () [facility] Start: 06-04-2023 Influenza vaccination [facility] Start: 11-05-2022 Screening for osteoporosis Bone Density Screening [facility] Start: 09-04-2022 End: 11-04-2022 CBC W Auto Differential panel - Blood CBC + DIFF Lab Routine Generalized anxiety disorder Persistent atrial fibrillation (HCC) Medication management Expected: 09/04/2022, Expires: 11/04/2022 [facility] Work Phone: Comment on above: Expected: 09/04/2022 , Expires: 11/04/2022 Start: 09-04-2022 End: 11-04-2022 Comprehensive metabolic 2000 panel - Serum or Plasma COMP METABOLIC PANEL Lab Routine Mixed hyperlipidemia Expected: 09/04/2022, Expires: 11/04/2022 [facility] Work Phone: Comment on above: Expected: 09/04/2022 , Expires: 11/04/2022 Start: 09-04-2022 End: 11-04-2022 Hemoglobin A1c in Blood HGB A1C Lab Routine Elevated hemoglobin A1c Expected: 09/04/2022, Expires: 11/04/2022 [facility] Work Phone: Comment on above: Expected: 09/04/2022 , Expires: 11/04/2022 Start: 09-04-2022 End: 11-04-2022 LIPID PANEL, NONFASTING LIPID PANEL, NONFASTING Lab Routine Mixed hyperlipidemia Expected: 09/04/2022, Expires: 11/04/2022 [facility] Work Phone: Comment on above: Expected: 09/04/2022 , Expires: 11/04/2022 Start: 09-04-2022 End: 11-04-2022 Thyrotropin [Units/volume] in Serum or Plasma TSH BLD Lab Routine Generalized anxiety disorder Persistent atrial fibrillation (HCC) Abnormal thyroid blood test Expected: 09/04/2022, Expires: 11/04/2022 [facility] Work Phone: Comment on above: Expected: 09/04/2022 , Expires: 11/04/2022 Start: 09-04-2022 End: 11-04-2022 Thyroxine (T4) free [Mass/volume] in Serum or Plasma T4 FREE/FREE THYROX Lab Routine Generalized anxiety disorder Persistent atrial fibrillation (HCC) Abnormal thyroid blood test Expected: 09/04/2022, Expires: 11/04/2022 [facility] Work Phone: Comment on above: Expected: 09/04/2022 , Expires: 11/04/2022 Start: 09-04-2022 End: 11-04-2022 Urinalysis complete panel - Urine URINALYSIS, WITH MICROSCOPIC Lab Routine Mixed hyperlipidemia Expected: 09/04/2022, Expires: 11/04/2022 [facility] Work Phone: Comment on above: Expected: 09/04/2022 , Expires: 11/04/2022 Start: 08-18-2022 Colonoscopy COLONOSCOPY [facility] Start: 08-18-2022 COLORECTAL CANCER SCREENING COLORECTAL CANCER SCREENING [facility] Start: 08-18-2022 Screening for malign ant neoplasm of colon [facility] Start: 06-04-2022 Influenza vaccination INFLUENZA (#1) [facility] Start: 01-10-2022 COVID-19 VACCINE (3 - Booster for Pfizer series) COVID-19 VACCINE (3 - Booster for Pfizer series) [facility] Start: 10-29-2021 Mammography [facility] Start: 10-29-2021 Screening for malign ant neoplasm of breast Mammogram Screening [facility] Start: 10-07-2021 COVID-19 VACCINE (3 - Booster for Pfizer series) COVID-19 VACCINE (3 - Booster for Pfizer series) [facility] Start: 10-04-2021 ADVANCE DIRECTIVE DISCUSSION ADVANCE DIRECTIVE DISCUSSION [facility] Start: 10-04-2021 DEPRESSION ASSESSMENT DEPRESSION ASS ESSMENT [facility] Start: 2019 PNEUMOVAX AGE 65 AND OVER WITH 5YR LOOKBACK (#1) PNEUMOVAX AGE 65 AND OVER WITH 5YR LOOKBACK (#1) [facility] Start: 2014 RSV Vaccine (1 - 1-d ose 60+ series) RSV Vaccine (1 - 1-dose 60+ series) [facility] Start: 2004 SHINGRIX VACCINE (1 of 2) SHINGRIX VACCINE (1 of 2) [facility] Start: 1999 COLOGUARD (FIT-DNA) COLOGUARD (FIT-D NA) [facility] Start: [address] COLONOGRAPHY [facility] Start: 1999 FECAL OCCULT BLOOD FECAL OCCULT BLOO D [facility] Start: 1999 Screening for malign ant neoplasm of colon [facility] Start: 1999 SIGMOIDOSCOPY SIGMOIDOSCOPY [facility] Start: 1972 Depression Screening Depression Scre ening [facility] End: 04-28-2025 BD DXA TRABECULAR BONE SCORE (TBS) BD DXA TRABECULAR BONE SCORE (TBS) Radiology Routine Screening for osteoporosis Asymptomatic menopause 1 Occurrences starting 03/29/2024 until 04/28/2025 [facility] Comment on above: 1 Occurrences starti ng 03/29/2024 until 04/28/2025 End: 05-11-2026 BD DXA TRABECULAR BONE SCORE (TBS) BD DXA TRABECULAR BONE SCORE (TBS) Radiology Routine Age-related osteoporosis without current pathological fracture 1 Occurrences starting 04/11/2025 until 05/11/2026 [facility] Comment on above: 1 Occurrences starti ng 04/11/2025 until 05/11/2026 End: 03-01-2026 DBT Breast - bilateral screening CHALINO SCREENING W PRIMITIVO Radiology Routine Encounter for screening mammogram for breast cancer 1 Occurrences starting 01/30/2025 until 03/01/2026 [facility] Work Phone: Comment on above: 1 Occurrences starti ng 01/30/2025 until 03/01/2026 End: 04-28-2025 DXA Skeletal system.axial Views for bone density DXA-AXIAL SKELETON Radiology Routine Screening for osteoporosis Asymptomatic menopause 1 Occurrences starting 03/29/2024 until 04/28/2025 [facility] Work Phone: Comment on above: 1 Occurrences starti ng 03/29/2024 until 04/28/2025 End: 05-11-2026 DXA Skeletal system.axial Views for bone density DXA-AXIAL SKELETON Radiology Routine Age-related osteoporosis without current pathological fracture 1 Occurrences starting 04/11/2025 until 05/11/2026 [facility] Work Phone: Comment on above: 1 Occurrences starti ng 04/11/2025 until 05/11/2026 End: 04-22-2024 CHALINO SCREENING CHALINO SCREENING Radiology Routine Encounter for screening mammogram for breast cancer 1 Occurrences starting 03/24/2023 until 04/22/2024 [facility] Work Phone: Comment on above: 1 Occurrences starti ng 03/24/2023 until 04/22/2024 End: 03-31-2025 MG Breast Screening CHALINO SCREENING Radiology Routine Encounter for screening mammogram for breast cancer 1 Occurrences starting 03/01/2024 until 03/31/2025 [facility] Work Phone: Comment on above: 1 Occurrences starti ng 03/01/2024 until 03/31/2025 End: 05-15-2023 Screening mammography bi 2-view breast inc cad CHALINO SCREENING Radiology Routine Encounter for screening mammogram for breast cancer 1 Occurrences starting 04/15/2022 until 05/15/2023 [facility] Work Phone: Comment on above: 1 Occurrences starti ng 04/15/2022 until 05/15/2023 [facility] Immunizations Immunization Date Immunization Notes Care Provider [facility] 04-11-2025 tetanus toxoid, redu pietro diphtheria toxoid, and acellular pertussis vaccine, adsorbed Kai Ayers MD Work Phone: [facility] 09-13-2024 influenza, high dose seasonal, preservative-free Kai Ayers MD Work Phone: [facility] 09-13-2024 influenza virus vaccine, unspecified formulation Kai Ayers MD Work Phone: [facility] 10-09-2022 influenza, high-dose , quadrivalent vaccine (FLUZONE HIGH DOSE QUADRIVALENT) Kai Ayers MD Work Phone: [facility] 10-09-2022 influenza virus vaccine, unspecified formulation Kai Ayers MD Work Phone: [facility] 03-20-2022 pneumococcal Conjuga te, unspecified formulation Kai Ayers MD Work Phone: [facility] Work Phone: 03-20-2022 pneumococcal (PCV20) vaccine, 20 valent (PREVNAR 20) Ruth Lucia PA-C Work Phone: [facility] 09-19-2021 influenza, high-dose , quadrivalent vaccine (FLUZONE HIGH DOSE QUADRIVALENT) Kai Ayers MD Work Phone: [facility] 07-22-2021 COVID-19 vaccine, ag e 12+ yr ([employer]-Take5NTDrivy - PURPLE TOP) Kai Ayers MD Work Phone: [facility] 10-11-2020 influenza, high-dose , quadrivalent vaccine (FLUZONE HIGH DOSE QUADRIVALENT) Kai Ayers MD Work Phone: [facility] 10-11-2020 pneumococcal conjuga te vaccine, 13 valent Kai Ayers MD Work Phone: [facility] 09-21-2018 influenza, injectabl e, quadrivalent, contains preservative Kai Ayers MD Work Phone: [facility] 11-13-2014 tetanus toxoid, redu pietro diphtheria toxoid, and acellular pertussis vaccine, adsorbed Kai Ayers MD Work Phone: [facility] Payers Date Payer Category Payer Self-pay 2017 [employer] BLUE CARD PPO OOS [id number] 2017 Unknown [employer] BLUE CARD PPO OOS [id number] 2017-Present [phone] [address] [place] [address] PPO [id number] 2017 Unknown [employer] BLUE CARD PPO OOS [id number] 2017-Present [phone] [address] [place] [address] PPO [id number] 2017 Unknown [id number] Unknown [id number] Social History Date Type Detail Facility Start: 04-03-2019 End: 03-18-2023 Tobacco smoking status NHIS Smokes tobacco daily [facility] History of tobacco use Cigarette Smoker C [facility] Start: 09-19-2021 End: 04-11-2025 Alcohol intake Current drinker of alcohol (finding) [facility] Start: 06-03-2017 History SDOH Alcohol Comment rare [facility] Start: 1955 Sex Assigned At Not on file C [facility] Start: 08-20-2021 End: 03-20-2022 Exposure to SARS-CoV-2 (event) Not sure [facility] Start: 04-03-2019 End: 04-14-2023 Cigarettes smoked current (pack per day) - Reported 0.3 [facility] Work Phone: Start: 04-03-2019 End: 09-13-2024 Tobacco use and exposure Smokeless tobacco non-user [facility] Start: 10-09-2022 End: 09-13-2024 Tobacco smoking status NHIS Occasional tobacco smoker [facility] Start: 04-14-2023 End: 03-29-2024 Tobacco use panel [facility] Work Phone: Start: 09-04-2012 Adult Depression Screening Assessment 0 [facility] Work Phone: How often to you hav e a drink containing alcohol? Monthly or less [facility] How many standard drinks containing alcohol do you have on a typical day? 1 or 2 [facility] How often do you hav e 6 or more drinks on 1 occasion? Never [facility] Start: 1955 Sex Assigned At Female W [facility] Functional Status Date Assessment Result Facility 04-04-2015 Are you deaf, or do you have serious difficulty hearing No 04/04/2015 6:07 PM Shirley Rosenthal LPN No [facility] 04-04-2015 Are you blind, or do you have serious difficulty seeing, even when wearing glasses No 04/04/2015 6:07 PM Shirley Rosenthal LPN No [facility] 04-04-2015 Do you have serious difficulty walking or climbing stairs No 04/04/2015 6:07 PM Shirley Rosenthal LPN No [facility] 04-04-2015 Do you have difficul ty dressing or bathing No 04/04/2015 6:07 PM Shirley Rosenthal LPN No [facility] 04-04-2015 Because of a physica l, mental, or emotional condition, do you have difficulty doing errands alone such as visiting a physician's office or shopping No 04/04/2015 6:07 PM Shirley Rosenthal LPN No [facility] Mental Status Date Assessment Result Facility 04-04-2015 Because of a physica l, mental, or emotional condition, do you have serious difficulty concentrating, remembering, or making decisions No 04/04/2015 6:07 PM EDT Shirley Miller LPN No [facility] Clinical Notes 05-06-2014 to 06-28-2025 Kai Ayers MD - 05/25/2025 10:27 AM EDSamira Haywood MA - 05/25/2025 8:28 AM EDTTelephone Encounter - Maylin Gilliam LPN - 04/18/2025 9:07 AM EDTPatient InstructionsPatient Instructions Note Date & Type Note Facility 06-28-2025 Note HNO ID: [id number] Author: NETTE HAYWARD Mammo Tech Service: ? Author Type: Orthotist Or Prosthetist Type: Progress Notes Filed: 06/28/2025 14:30 Note Text: Radiology Service Progress Note PATIENT NAME: Bogdan Batres DATE OF SERVICE: June 28, 2025 TIME: 2:29 PM PATIENT IDENTITY VERIFICATION COMPLETED USING TWO (2) IDENTIFIERS: Name and Date of confirmed by patient verbally. FALL SCREENING: Has the patient had 2 falls in the last year or 1 fall with injury or currently using an Ambulatory Assistive Device (Walker, Cane, Wheelchair, Crutches, etc.)? No PATIENT GENDER DATA: Assigned female at . status: : No status: NO. PATIENT RELEVANT IMPLANT DATA REVIEWED: Not Applicable PATIENT PRESENTS WITH AN IMPLANTABLE OR ATTACHED NURSE SUBSTANCE ABUSE: No RADIOLOGY DEPARTMENT: Mammography PERIPHERAL IV DATA: Not applicable SIGNED BY: Edson Mahan June 28, 2025 2:29 PM [facility] 05-25-2025 Note HNO ID: [id number] Author: SAMIRA HERNANDEZ MA Service: ? Author Type: Kitchen Food Server Type: Progress Notes Filed: 05/25/2025 14:10 Note Text: Labs that have been printed, have been faxed to [facility]. Samira Hernandez MA [facility] 05-25-2025 Note HNO ID: [id number] Author: KAI AYERS MD Service: ? Author Type: Physician Type: Progress Notes Filed: 05/25/2025 10:27 Note Text: Please fax copy of labs to [facility] for dr. Joseph [facility] 05-25-2025 History of Present illness Narrative Please fax copy of labs to [facility] for dr. Joseph Scan on 05/24/2025 4:37 PM by ProviderYolanda PAJohnathanC: G documented in this encounter [facility] 05-25-2025 Note HNO ID: [id number] Author: SAMIRA HERNANDEZ MA Service: ? Author Type: Kitchen Food Server Type: Progress Notes Filed: 05/25/2025 08:28 Note Text: Scan on 05/24/2025 4:37 PM by ProviderYolanda PA-C: Aiden [facility] 04-18-2025 Telephone encounter Note Left message of same on pt's identified vm. Maylin Gilliam LPN [facility] 04-18-2025 Miscellaneous Notes Left message of same on pt's identified vm. Maylin Gilliam LPN Magnesium Oxide 250 mg once a day. Patient notified of results and provider's instructions. Patient verbalizes understanding. Pt advises she would like to start taking magnesium OTC. Questioning which one you would recommend that she take. Maylin Gilliam LPN Let patient know all her recent labs were good except her LDL (bad chol) was high at 165 (goal<130) and typical she has been 78-89. Advise working on decreased fat in her diet and increased exercise for weight loss. documented in this encounter [facility] 04-18-2025 Telephone encounter Note Magnesium Oxide 250 mg once a day. [facility] 04-17-2025 Telephone encounter Note Patient notified of results and provider's instructions. Patient verbalizes understanding. Pt advises she would like to start taking magnesium OTC. Questioning which one you would recommend that she take. Maylin Gilliam LPN [facility] 04-16-2025 Telephone encounter Note Let patient know all her recent labs were good except her LDL (bad chol) was high at 165 (goal<130) and typical she has been 78-89. Advise working on decreased fat in her diet and increased exercise for weight loss. [facility] 04-11-2025 Instructions Kai Ayers MD - 04/11/2025 4:26 PM EDT We discussed your preventive care and vaccinations: - You received a Tdap vaccine today, which protects against tetanus, diphtheria, and pertussis. This will be effective for the next 10 years. - We discussed the Shingrix vaccine for shingles prevention. This vaccine requires two doses, spaced 2-3 months apart. You decided to think about it. If you choose to proceed, I recommend starting the first dose in May to complete the series before transitioning to Medicare. We can schedule the vaccine for a Wednesday if you prefer to have the weekend to recover. - Your pneumonia vaccine is up to date. We discussed your routine screenings: - Your mammogram order is still valid. Please schedule this at your earliest convenience. - I renewed your orders for a colonoscopy and a bone density scan (DEXA). Please schedule these tests as soon as possible. - You mentioned needing to schedule a dermatology appointment for a full-body skin check. Please follow up with Dr. Villa at [facility]. We discussed your weight and activity level: - You have gained 4 pounds since your last visit in September. You expressed interest in increasing your physical activity, such as walking, to help with weight management. Please consider starting a regular walking routine when the weather cools down. We discussed your rib pain: - You experienced left lower rib pain after moving a heavy object. Based on the exam, it is likely related to cartilage or a mild bone contusion. There is no need for imaging, as it would not change the treatment plan. Symptoms should continue to improve with time. If the pain worsens or does not resolve, please let me know. We discussed your medications: - You mentioned stopping atorvastatin about a month ago. If you would like to discuss restarting this medication or alternative options, please let me know. We discussed your labs: - Your lab orders are in the system. You may complete them today or at your convenience. Follow-up: - Please schedule your next wellness visit as needed. - If you have any new or worsening symptoms, or if you decide to proceed with the Shingrix vaccine, please contact our office. documented in this encounter [facility] 04-11-2025 Note HNO ID: [id number] Author: KAI AYERS MD Service: ? Author Type: Physician Type: Progress Notes Filed: 04/11/2025 20:55 Note Text: Chief Complaint Patient presents with: Well Adult HPI Bogdan Batres is a 69 year old female who presents here today for a Physical and chronic health issues. Patient with hx of A. Fib, HLP, elevated a1c, smoker, anxiety and panic disorder. Patient sees [facility] 03/2024 Mini-Cog Patient asked to remember the following three words: Banana, [place] and Chair Visuospatial/Executive Functioning: Clock drawin/2 (Normal clock with all number in correct sequence and position, hands are correct = 2 points, inability or refusal to draw a clock = 0) Three word recall: 3/3 Total score: 5/5 (Total score = word recall score + clock draw score) Bogdan is currently under the care of [facility] and has been taking atorvastatin, but discontinued it approximately one month ago due to concerns about potential side effects. She reports changes in her hands and skin, though she is uncertain if these are related to the medication. She denies recent fevers, frequent headaches, or sudden changes in hearing or vision. She does note that her current eyeglass prescription is over a year old and mentions a previous discussion about the potential need for cataract surgery. She denies any recent problems with her nose or throat, but has observed enlarged pores on her nose and occasional bloody nasal discharge, which she attributes to dryness during the winter. She denies any lumps or swelling in her neck. Bogdan reports dyspnea on exertion, which she notes is not more frequent than usual. She occasionally expectorates phlegm, but denies hemoptysis. She denies chest pain or palpitations. She notes that she usually wears compression socks during the day due to prolonged sitting, but has not worn them in the past few days, resulting in mild lower extremity edema. She reports weight gain since her last visit, attributing it to a sedentary lifestyle and lack of exercise due to hot weather. She denies frequent nausea, vomiting, diarrhea, or heartburn, and has not observed any blood in her stool or urine. She also denies dysuria or increased urinary frequency. Bogdan reports multiple skin lesions on her back, one of which she accidentally scraped off. She also notes persistent calloused skin on her elbows and easy bruising, which she attributes to her use of Eliquis. She denies any changes in her tolerance to heat or cold, increased thirst, syncope, seizures, or tremors. She reports that her anxiety has been well-managed. Bogdan also mentions a recent incident where she experienced a popping sensation in her left lower ribs while moving a heavy pot. This resulted in significant pain for about two weeks, particularly when driving, but the pain has since subsided to a mild ache. She did not observe any bruising around the area after the incident. Past medical history, appointments, medications, allergies reviewed. Previous Medical History PAST MEDICAL HISTORY Diagnosis Date Advance directive discussed with patient 10/09/2022 Discussed 10/2022: need copies Broken ankle, left, closed, initial encounter 11/18/2016 Dermatophytosis, nail 06/03/2017 Generalized anxiety disorder 12/20/2018 H/O actinic keratosis 06/03/2017 Dr. Moreno, dermatology. Lichen sclerosus 06/03/[address] 10/09/2022 DPA: Cachorro (son) Localized edema 03/21/2021 right ankle Lumbago 04/01/2006 Mixed hyperlipidemia 04/03/2011 Obesity, Class II, BMI 35-39.9 03/21/2021 Palpitations 06/23/2019 Panic disorder without agoraphobia 09/20/2006 Persistent atrial fibrillation (HCC) 04/21/2021 Smoker 03/23/2006 Started around 18 yo up to 1/2 a PPD, as of 12/2018 just under 1/2 a PPD. Well adult exam 10/11/2020 Last done: 10/11/2020 Previous Surgical History PAST SURGICAL HISTORY Procedure Laterality Date 2D ECHO (EXEP) 05/02/2021 EF=65%, LA mildly enlarged, 1+ [place], TI. COLSC FLX W/RMVL OF TUMOR POLYP LESION SNARE TQ 08/18/2012 nl mucosa, prob. hyperplastic, no adenoma NUCLEAR STRESS LEXISCAN (CARD) 05/02/2021 negative OPEN TREATMENT,TRIMALLEOLAR ANKLE FRACTURE Left 2014 PAST SURGICAL HISTORY OF 2009 precancerous lesions removed from legs and rt shoulder Family History FAMILY HISTORY Problem Relation Age of Onset Hypertension Mother Stroke Mother Alzheimer's Disease Mother other (heart arrhythmia) Mother AF on Xarelto other (fibrocystic) Mother BREASTS Alzheimer's Disease Father Arthritis Brother knee replaced other (other) Son 37 unspecified anemia Patient Allergies ALLERGIES Allergen Reactions Buspar [Buspirone] Other: See Comments Increased depression Celexa [Citalopram] Other: See Comments Increased anxiety and slight depression. Current Medications Current Outpatient Medications on File Prior to Visit (more content not included)... [facility] 04-11-2025 History of Present illness Narrative Chief Complaint Patient presents with: Well Adult HPI Bogdan Batres is a 69 year old female who presents here today for a Physical and chronic health issues. Patient with hx of A. Fib, HLP, elevated a1c, smoker, anxiety and panic disorder. Patient sees [facility] 03/2024 Mini-Cog Patient asked to remember the following three words: Banana, [place] and Chair Visuospatial/Executive Functioning: Clock drawin/2 (Normal clock with all number in correct sequence and position, hands are correct = 2 points, inability or refusal to draw a clock = 0) Three word recall: 12/04 Total score: 5/5 (Total score = word recall score + clock draw score) Bogdan is currently under the care of [facility] and has been taking atorvastatin, but discontinued it approximately one month ago due to concerns about potential side effects. She reports changes in her hands and skin, though she is uncertain if these are related to the medication. She denies recent fevers, frequent headaches, or sudden changes in hearing or vision. She does note that her current eyeglass prescription is over a year old and mentions a previous discussion about the potential need for cataract surgery. She denies any recent problems with her nose or throat, but has observed enlarged pores on her nose and occasional bloody nasal discharge, which she attributes to dryness during the winter. She denies any lumps or swelling in her neck. Bogdan reports dyspnea on exertion, which she notes is not more frequent than usual. She occasionally expectorates phlegm, but denies hemoptysis. She denies chest pain or palpitations. She notes that she usually wears compression socks during the day due to prolonged sitting, but has not worn them in the past few days, resulting in mild lower extremity edema. She reports weight gain since her last visit, attributing it to a sedentary lifestyle and lack of exercise due to hot weather. She denies frequent nausea, vomiting, diarrhea, or heartburn, and has not observed any blood in her stool or urine. She also denies dysuria or increased urinary frequency. Bogdan reports multiple skin lesions on her back, one of which she accidentally scraped off. She also notes persistent calloused skin on her elbows and easy bruising, which she attributes to her use of Eliquis. She denies any changes in her tolerance to heat or cold, increased thirst, syncope, seizures, or tremors. She reports that her anxiety has been well-managed. Bogdan also mentions a recent incident where she experienced a popping sensation in her left lower ribs while moving a heavy pot. This resulted in significant pain for about two weeks, particularly when driving, but the pain has since subsided to a mild ache. She did not observe any bruising around the area after the incident. Past medical history, appointments, medications, allergies reviewed. Previous Medical History PAST MEDICAL HISTORY Diagnosis Date Advance directive discussed with patient 10/09/2022 Discussed 10/2022: need copies Broken ankle, left, closed, initial encounter 11/18/2016 Dermatophytosis, nail 06/03/2017 Generalized anxiety disorder 12/20/2018 H/O actinic keratosis 06/03/2017 Dr. Moreno, dermatology. Lichen sclerosus 06/03/[address] 10/09/2022 DPA: Cachorro (son) Localized edema 03/21/2021 right ankle Lumbago 04/01/2006 Mixed hyperlipidemia 04/03/2011 Obesity, Class II, BMI 35-39.9 03/21/2021 Palpitations 06/23/2019 Panic disorder without agoraphobia 09/20/2006 Persistent atrial fibrillation (HCC) 04/21/2021 Smoker 03/23/2006 Started around 18 yo up to 1/2 a PPD, as of 12/2018 just under 1/2 a PPD. Well adult exam 10/11/2020 Last done: 10/11/2020 Previous Surgical History PAST SURGICAL HISTORY Procedure Laterality Date 2D ECHO (EXEP) 05/02/2021 EF=65%, LA mildly enlarged, 1+ [place], TI. COLSC FLX W/RMVL OF TUMOR POLYP LESION SNARE TQ 08/18/2012 nl mucosa, prob. hyperplastic, no adenoma NUCLEAR STRESS LEXISCAN (CARD) 05/02/2021 negative OPEN TREATMENT,TRIMALLEOLAR ANKLE FRACTURE Left 2014 PAST SURGICAL HISTORY OF 2009 precancerous lesions removed from legs and rt shoulder Family History FAMILY HISTORY Problem Relation Age of Onset Hypertension Mother Stroke Mother Alzheimer's Disease Mother other (heart arrhythmia) Mother AF on Xarelto other (fibrocystic) Mother BREASTS Alzheimer's Disease Father Arthritis Brother knee replaced other (other) Son 37 unspecified anemia Patient Allergies ALLERGIES Allergen Reactions Buspar [Buspirone] Other: See Comments Increased depression Celexa [Citalopram] Other: See Comments Increased anxiety and slight depression. Current Medications Current Outpatient Medications on File Prior to Visit Medication Sig clonazePAM (KLONOPIN) 0.5 mg tablet Take 1/2 a once daily as needed for anxiety hydroCHLOROthiazide 12.5 mg capsule Take 1 capsule by mouth once daily. metoprolol succinate ER (TOPROL XL) 50 mg 24 hr tablet Take 1 tablet by mouth once daily. atorvastatin (LIPITOR) 10 mg tablet Take 1 tablet by mouth once daily. Cholecalciferol, Vitamin D3, (VITAMIN D-3) 50 mcg (2,000 unit) cap Take one twice a day calcium Carbonate 300 mg, 750mg, (TUMS E-X) 300 mg (750 mg) chewable tablet Take 1 tablet by mouth two times a day. clobetasol (TEMOVATE) 0.05 % ointment Use only a thin layer over affected area. Use 1-3 times weekly for maintenance ELIQUIS 5 mg tab(s) TAKE 1 TAB BY MOUTH TWICE DAILY. STOP USING XARELTO FOLIC ACID/MULTIVIT-MIN/LUTEIN (CENTRUM SILVER ORAL) Take 1 tablet by mouth once daily. Cranberry 500 mg cap Take 2 capsules by mouth once daily. No current facility-administered medications on file prior to visit. Social History Social History Tobacco Use Smoking status: Some Days Current packs/day: 0.25 Average packs/day: 0.3 packs/day for 30.0 years (7.5 ttl pk-yrs) Types: Cigarettes Smokeless tobacco: Never Vaping Use Vaping status: Never Used Substance Use Topics Alcohol use: Yes Comment: rare Drug use: No Review of Symptoms REVIEW OF SYSTEMS GENERAL: No weight loss, malaise or fevers HEENT: Negative for frequent or significant headaches, No changes in hearing or vision, no nose bleeds or other nasal problems NECK: Negative for lumps, goiter, pain and significant neck swelling RESPIRATORY: Negative for cough, hemoptysis, wheezing, COPD, dyspnea or shortness of breath CARDIOVASCULAR: Negative for chest pain, leg swelling, hypertension, CHF or palpitations GI: No nausea, vomiting, or diarrhea, No heartburn or reflux symptoms, and no blood : No history of dysuria, frequency or blood MUSCULOSKELETAL: Negative for new or changes in her typical joint pain or swelling, back pain or muscle pain SKIN: Negative for lesions, rash, and itching PSYCH: Negative for sleep disturbance, mood disorder and recent psychosocial stressors. Anxiety has been doing well. HEMATOLOGY/LYMPHOLOGY: Negative for prolonged bleeding, bruising easily or swollen nodes ENDOCRINE: Negative for cold or heat intolerance, polyuria, polydipsia and goiter NEURO: No history of headaches, syncope, paralysis, seizures or tremors SEE HPI EXAM: BP 118/84 (BP Site: Left Arm, BP Position: Sitting, BP Cuff Size: Large Adult) Pulse 78 Resp 16 Ht 165.1 cm (5' 5) Wt 102.2 kg (225 lb 3.2 oz) LMP 11/16/2005 BMI 37.48 kg/m Last 6 Encounter Wt Readings: Date: Wt: 04/11/2025 102.2 kg (225 lb 3.2 oz) 09/13/2024 100.2 kg (221 lb) 03/29/2024 98.4 kg (217 lb) 04/14/2023 98 kg (216 lb) 10/09/2022 100.7 kg (222 lb) 03/20/2022 98 kg (216 lb) General Appearance: Well appearing, alert, in no acute distress, well-hydrated, well nourished. and Obese. Skin: Skin color, texture, turgor normal, no suspicious rashes or lesions. Head: Normocephalic, no masses, lesions, tenderness or abnormalities. Eyes: Anicteric sclera. Pupils are equally round and reactive to light. Extraocular movements are intact. . Ears: External ears, TM's normal, canals clear. Nose/Sinuses: Nares normal, septum midline, mucosa normal, no drainage or sinus tenderness. Oropharynx: Lips, mucosa, and tongue normal, teeth and gums normal, oropharynx normal. Neck: Supple, no adenopathy; thyroid symmetric, normal size, no bruits. Lungs: Lungs clear to auscultation. No wheezing, rhonchi, rales. Mild discomfort over the left lower anterior ribs. Patient says it's much improved. No step offs or bruiting. . Heart: RRR without murmur, gallop, or rubs. No ectopy. Abdomen: Normal abdominal exam, Abdomen soft, non-tender. Bowel sounds normal. No masses, organomegaly. Extremities: No deformities, edema, skin discoloration, clubbing or cyanosis. Good capillary refill. . Musculoskeletal: Muscular strength intact, No joint swelling, deformity, or tenderness. Peripheral Pulses: Normal. Neurologic: Gait normal. Reflexes normal and symmetric. Sensation to light touch and crainal nerves 2-12 intact.. Health Maintenance List Mammogram Screening due on 10/29/2021 Colorectal Cancer Screening due on 08/18/2022 Bone Density Screening due on 11/05/2022 Shingrix Vaccine(1 of 2) due on 04/11/2026 Influenza Vaccine(1) due on 06/04/2025 Depression Screening due on 04/11/2026 Diabetes Screening due on 03/29/2027 Lipid Screening due on 03/29/2029 RSV Vaccine(1 - 1-dose 75+ series) due on 2029 DTaP,Tdap,Td Vaccine(3 - Td or Tdap) due on 04/11/2035 Advance Directive Discussion Completed Hepatitis C Screening Completed Pneumococcal Vaccine: 50+ Completed Covid-19 Vaccine Discontinued Data reviewed Assessment and Plan 1. Well adult exam (Z00.00) Comprehensive physical examination performed. Discussed various health maintenance topics including vaccinations, weight management, and screenings. - given Tdap vaccine. - Scheduled Shingrix vaccine #1 for 05/25/2025 - Ordered mammogram, bone density scan, and colonoscopy. - Advised patient to follow up with dermatology for skin checks. - Discussed importance of regular eye exams. - advised on life style changes for weight loss. 2. Mixed hyperlipidemia (E78.2) Patient has discontinued atorvastatin. - Discussed resuming atorvastatin therapy. - awaiting labs 3. Elevated hemoglobin A1c (R73.09) Patient has a history of elevated hemoglobin A1c. - Ordered labs to monitor hemoglobin A1c levels. 4. Persistent atrial fibrillation (HCC) (I48.19) Patient is under the care of [facility] for management of atrial fibrillation. - Continue current management with cardiology. 5. Generalized anxiety disorder (F41.1) Panic disorder without agoraphobia (F41.0) Anxiety is well-controlled. - Continue current management. 6. Obesity, Class II, BMI 35-39.9 (E66.812) Patient has gained 4 lbs since last visit in September, with a current BMI indicating Class II obesity. Patient reports a sedentary lifestyle contributing to weight gain. - Discussed importance of regular physical activity and weight management. - Encouraged patient to start a walking routine. 7. Smoker (F17.200) - pt aware of health risks and need fro quitting. 8. Age-related osteoporosis without current pathological fracture (M81.0) Patient is due for a bone density scan. - Ordered bone density scan. - pt to continue calcium and Vit D supplements. 9. Advance directive discussed with patient (Z71.89) - pt to bring in copies to be placed in chart. 10. Screening for colon cancer (Z12.11) Patient has not yet completed the previously ordered colonoscopy. - Reordered colonoscopy. 11. Need for vaccination (Z23) Patient is due for Tdap and Shingrix vaccines. - Administered Tdap vaccine today. - Scheduled Shingrix vaccine #1 for 05/25/2025. 12. Screening for depression (Z13.31) F/u 6 months routine Kai Ayers MD I spent a total of 45 minutes on the date of the service which included preparing to see the patient, [id number] patient care, completing clinical documentation, performing a medically appropriate examination, counseling and educating the patient/family/caregiver and ordering medications, tests, or procedures. Recording using [employer] software for draft documentation of the visit was discussed with the patient/authorized medical field representative; all questions welcomed and answered. Patient/authorized medical field representative agreed to proceed documented in this encounter [facility] 03-03-2025 Telephone encounter Note The following approved medication requests have been transmitted electronically. Requested Prescriptions Signed Prescriptions Disp Refills clonazePAM (KLONOPIN) 0.5 mg tablet 15 tablet 1 Sig: Take 1/2 a once daily as needed for anxiety Authorizing Provider: KAI AYERS hydroCHLOROthiazide 12.5 mg capsule 90 capsule 2 Sig: Take 1 capsule by mouth once daily. Authorizing Provider: KAI AYERS MD PDMP website checked and validated. All prescriptions have been APPROPRIATELY filled. No suspicious activity was identified. 03/03/2025 by Kai Ayers MD [facility] 03-03-2025 Miscellaneous Notes The following approved medication requests have been transmitted electronically. Requested Prescriptions Signed Prescriptions Disp Refills clonazePAM (KLONOPIN) 0.5 mg tablet 15 tablet 1 Sig: Take 1/2 a once daily as needed for anxiety Authorizing Provider: KAI AYERS hydroCHLOROthiazide 12.5 mg capsule 90 capsule 2 Sig: Take 1 capsule by mouth once daily. Authorizing Provider: KAI AYERS MD PDMP website checked and validated. All prescriptions have been APPROPRIATELY filled. No suspicious activity was identified. 03/03/2025 by Kai Ayers MD Prescription Refill Information The patient has been identified by name and date of : Yes Caregiver verified no other encounters exist for this prescription request: Yes Caregiver confirmed with patient/requestor that no other refills are due, in the near future, with this provider at this time: Yes The last office visit in the department: 09/13/24 Does the patient have a future office visit with this provider/department: Yes Requested Prescriptions Pending Prescriptions Disp Refills clonazePAM (KLONOPIN) 0.5 mg tablet 15 tablet 1 Sig: Take 1/2 a once daily as needed for anxiety hydroCHLOROthiazide 12.5 mg capsule 90 capsule 2 Sig: Take 1 capsule by mouth once daily. Maylin Gilliam LPN March 03, 2025 8:02 AM Patient has been identified by name and date of : Yes, Patient phones for refill(s): Requested Prescriptions Pending Prescriptions Disp Refills clonazePAM (KLONOPIN) 0.5 mg tablet 15 tablet 1 Sig: Take 1/2 a once daily as needed for anxiety hydroCHLOROthiazide 12.5 mg capsule 90 capsule 2 Sig: Take 1 capsule by mouth once daily. Date of last office visit in primary care: 09/13/2024 Date of next office visit in primary care: 04/11/2025 Please advise. Thank you. Manuela Castellano. documented in this encounter [facility] 03-03-2025 Telephone encounter Note Prescription Refill Information The patient has been identified by name and date of : Yes Caregiver verified no other encounters exist for this prescription request: Yes Caregiver confirmed with patient/requestor that no other refills are due, in the near future, with this provider at this time: Yes The last office visit in the department: 09/13/24 Does the patient have a future office visit with this provider/department: Yes Requested Prescriptions Pending Prescriptions Disp Refills clonazePAM (KLONOPIN) 0.5 mg tablet 15 tablet 1 Sig: Take 1/2 a once daily as needed for anxiety hydroCHLOROthiazide 12.5 mg capsule 90 capsule 2 Sig: Take 1 capsule by mouth once daily. Maylin Gilliam LPN March 03, 2025 8:02 AM [facility] 03-02-2025 Telephone encounter Note Patient has been identified by name and date of : Yes, Patient phones for refill(s): Requested Prescriptions Pending Prescriptions Disp Refills clonazePAM (KLONOPIN) 0.5 mg tablet 15 tablet 1 Sig: Take 1/2 a once daily as needed for anxiety hydroCHLOROthiazide 12.5 mg capsule 90 capsule 2 Sig: Take 1 capsule by mouth once daily. Date of last office visit in primary care: 09/13/2024 Date of next office visit in primary care: 04/11/2025 Please advise. Thank you. Manuela Castellano. [facility] 02-08-2025 Telephone encounter Note The following approved medication requests have been transmitted electronically. Requested Prescriptions Signed Prescriptions Disp Refills metoprolol succinate ER (TOPROL XL) 50 mg 24 hr tablet 90 tablet 1 Sig: Take 1 tablet by mouth once daily. Authorizing Provider: KAI AYERS MD [facility] 02-08-2025 Miscellaneous Notes The following approved medication requests have been transmitted electronically. Requested Prescriptions Signed Prescriptions Disp Refills metoprolol succinate ER (TOPROL XL) 50 mg 24 hr tablet 90 tablet 1 Sig: Take 1 tablet by mouth once daily. Authorizing Provider: KAI AYERS MD Patient also wanted to know if this refill order could have more refills added. She asked if it was necessary to call in and request a refill monthly. Please advise. Thank you. Nic West. Prescription Refill Information The patient has been identified by name and date of : Yes Caregiver verified no other encounters exist for this prescription request: Yes Caregiver confirmed with patient/requestor that no other refills are due, in the near future, with this provider at this time: Yes The last office visit in the department: 09/13/24 Does the patient have a future office visit with this provider/department: Yes Requested Prescriptions Pending Prescriptions Disp Refills metoprolol succinate ER (TOPROL XL) 50 mg 24 hr tablet 90 tablet 1 Sig: Take 1 tablet by mouth once daily. Maylin Gilliam LPN February 08, 2025 12:23 PM Patient has been identified by name and date of : Yes, Provider Dr. Ayers Date 02/08/2025 Time 9:33AM Patient phones for refill(s): Requested Prescriptions Pending Prescriptions Disp Refills metoprolol succinate ER (TOPROL XL) 50 mg 24 hr tablet 90 tablet 1 Sig: Take 1 tablet by mouth once daily. Date of last office visit in primary care: 09/13/2024 Date of next office visit in primary care: 04/11/2025 Patient also wanted to know if this refill order could have more refills added. She asked if it was necessary to call in and request a refill monthly. Please advise. Thank you. Nic West. documented in this encounter [facility] 02-08-2025 Telephone encounter Note Patient also wanted to know if this refill order could have more refills added. She asked if it was necessary to call in and request a refill monthly. Please advise. Thank you. Nic West. Prescription Refill Information The patient has been identified by name and date of : Yes Caregiver verified no other encounters exist for this prescription request: Yes Caregiver confirmed with patient/requestor that no other refills are due, in the near future, with this provider at this time: Yes The last office visit in the department: 09/13/24 Does the patient have a future office visit with this provider/department: Yes Requested Prescriptions Pending Prescriptions Disp Refills metoprolol succinate ER (TOPROL XL) 50 mg 24 hr tablet 90 tablet 1 Sig: Take 1 tablet by mouth once daily. Maylin Gilliam LPN February 08, 2025 12:23 PM [facility] 02-08-2025 Telephone encounter Note Patient has been identified by name and date of : Yes, Provider Dr. Ayers Date 02/08/2025 Time 9:33AM Patient phones for refill(s): Requested Prescriptions Pending Prescriptions Disp Refills metoprolol succinate ER (TOPROL XL) 50 mg 24 hr tablet 90 tablet 1 Sig: Take 1 tablet by mouth once daily. Date of last office visit in primary care: 09/13/2024 Date of next office visit in primary care: 04/11/2025 Patient also wanted to know if this refill order could have more refills added. She asked if it was necessary to call in and request a refill monthly. Please advise. Thank you. Nic West. [facility] 01-30-2025 Note Patient Outreach (FA MPWS) MEDARDOBOGDAN Ben ([id number]) 1955 F Date Time Provider Department 01/30/25 KAI AYERSWS During your visit today, we recorded the following information about you: Allergies As of Date: 01/30/2025 Noted Allergy Reaction BUSPAR (BUSPIRONE) 05/26/2019 14 - Other: See Comments Comments: Increased depression CELEXA (CITALOPRAM) 02/21/2019 14 - Other: See Comments Comments: Increased anxiety and slight depression. Date Reviewed: 09/13/2024 Reviewed by: Kai Ayers MD - Fully Assessed Visit Diagnosis:Encounter for screening mammogram for breast cancer [Z12.31] Order(s):[facility] [[id number]] Order #: [id number] FUTURE Prescriptions as of 03/02/2025 - metoprolol succinate ER (TOPROL XL) 50 mg 24 hr tablet Take 1 tablet by mouth once daily. - atorvastatin (LIPITOR) 10 mg tablet Take 1 tablet by mouth once daily. - clonazePAM (KLONOPIN) 0.5 mg tablet Take 1/2 a once daily as needed for anxiety - Cholecalciferol, Vitamin D3, (VITAMIN D-3) 50 mcg (2,000 unit) cap Take one twice a day - calcium Carbonate 300 mg, 750mg, (TUMS E-X) 300 mg (750 mg) chewable tablet Take 1 tablet by mouth two times a day. - hydroCHLOROthiazide 12.5 mg capsule Take 1 capsule by mouth once daily. - clobetasol (TEMOVATE) 0.05 % ointment Use only a thin layer over affected area. Use 1-3 times weekly for maintenance - ELIQUIS 5 mg tab(s) TAKE 1 TAB BY MOUTH TWICE DAILY. STOP USING XARELTO - FOLIC ACID/MULTIVIT-MIN/LUTEIN (CENTRUM SILVER ORAL) Take 1 tablet by mouth once daily. - Cranberry 500 mg cap Take 2 capsules by mouth once daily. 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/18/2012 06/03/2017 Special screening for malignant neoplasms, colo*08/18/2012 06/04/2017 Controlled substance agreement signed [Z79.899] 04/24/2014 HLD (hyperlipidemia) [E78.5] 05/06/2014 05/20/2016 Lichen sclerosus [L90.0] 06/03/2017 H/O actinic keratosis [Z87.2] 06/03/2017 Dermatophytosis, nail [B35.1] 06/03/2017 Generalized anxiety disorder [F41.1] 12/20/2018 Well adult exam [Z00.00] 10/11/2020 Age-related osteoporosis without current pathol*11/05/2020 Localized edema [R60.0] 03/21/2021 Elevated hemoglobin A1c [R73.09] 03/21/2021 Obesity, Class II, BMI 35-39.9 [E66.812] 03/21/2021 Persistent atrial fibrillation (HCC) [I48.19] 04/21/2021 Medication management [Z79.899] 03/20/2022 Screening for colon cancer [Z12.11] 10/09/[address] [Z78.9] 10/09/2022 Advance directive discussed with patient [Z71.8*10/09/2022 Encounter Status:Closed by [employer] PRODUSER on 03/02/25 [facility] 01-20-2025 Telephone encounter Note The following approved medication requests have been transmitted electronically. Requested Prescriptions Signed Prescriptions Disp Refills atorvastatin (LIPITOR) 10 mg tablet 90 tablet 1 Sig: Take 1 tablet by mouth once daily. Authorizing Provider: KAI AYERS MD [facility] 01-20-2025 Miscellaneous Notes The following approved medication requests have been transmitted electronically. Requested Prescriptions Signed Prescriptions Disp Refills atorvastatin (LIPITOR) 10 mg tablet 90 tablet 1 Sig: Take 1 tablet by mouth once daily. Authorizing Provider: KAI AYERS MD PATIENT IS WANTING TO KNOW IF POSSIBLE FOR FULL 90 DAYS COULD BE DISPENSED AT ONE TIME. Prescription Refill Information The patient has been identified by name and date of : Yes Caregiver verified no other encounters exist for this prescription request: Yes Caregiver confirmed with patient/requestor that no other refills are due, in the near future, with this provider at this time: Yes The last office visit in the department: 09/13/24 Does the patient have a future office visit with this provider/department: Yes 04/11/25 Requested Prescriptions Pending Prescriptions Disp Refills atorvastatin (LIPITOR) 10 mg tablet 90 tablet 1 Sig: Take 1 tablet by mouth once daily. Kim Read January 19, 2025 2:40 PM documented in this encounter [facility] 01-19-2025 Telephone encounter Note PATIENT IS WANTING TO KNOW IF POSSIBLE FOR FULL 90 DAYS COULD BE DISPENSED AT ONE TIME. Prescription Refill Information The patient has been identified by name and date of : Yes Caregiver verified no other encounters exist for this prescription request: Yes Caregiver confirmed with patient/requestor that no other refills are due, in the near future, with this provider at this time: Yes The last office visit in the department: 09/13/24 Does the patient have a future office visit with this provider/department: Yes 04/11/25 Requested Prescriptions Pending Prescriptions Disp Refills atorvastatin (LIPITOR) 10 mg tablet 90 tablet 1 Sig: Take 1 tablet by mouth once daily. Kim Read January 19, 2025 2:40 PM [facility] 09-13-2024 Note HNO ID: [id number] Author: KAI AEYRS MD Service: ? Author Type: Physician Type: Progress Notes Filed: 09/13/2024 20:41 Note Text: Chief Complaint Patient presents with: F/U 6 months HPI Bogdan Batres is a 68 year old female who presents here today for 6 month follow up. Patient with hx of A. Fib, HLP, elevated a1c, smoker, anxiety and panic disorder. Past medical history, appointments, medications, allergies reviewed. Patient sees [facility] 03/2024 Patient has been doing ok. Stopped taking the Atorvastatin due to what she had read about statins. Doing ok with the klonopin. Past medical history, appointments, medications, allergies reviewed. Previous Medical History PAST MEDICAL HISTORY Diagnosis Date Advance directive discussed with patient 10/09/2022 Discussed 10/2022: need copies Broken ankle, left, closed, initial encounter 11/18/2016 Dermatophytosis, nail 06/03/2017 Generalized anxiety disorder 12/20/2018 H/O actinic keratosis 06/03/2017 Dr. Moreno, dermatology. Lichen sclerosus 06/03/[address] 10/09/2022 DPA: Cachorro (son) Localized edema 03/21/2021 right ankle Lumbago 04/01/2006 Mixed hyperlipidemia 04/03/2011 Obesity, Class II, BMI 35-39.9 03/21/2021 Palpitations 06/23/2019 Panic disorder without agoraphobia 09/20/2006 Persistent atrial fibrillation (HCC) 04/21/2021 Smoker 03/23/2006 Started around 18 yo up to 1/2 a PPD, as of 12/2018 just under 1/2 a PPD. Well adult exam 10/11/2020 Last done: 10/11/2020 Previous Surgical History PAST SURGICAL HISTORY Procedure Laterality Date 2D ECHO (EXEP) 05/02/2021 EF=65%, LA mildly enlarged, 1+ [place], TI. COLSC FLX W/RMVL OF TUMOR POLYP LESION SNARE TQ 08/18/2012 nl mucosa, prob. hyperplastic, no adenoma NUCLEAR STRESS LEXISCAN (CARD) 05/02/2021 negative OPEN TREATMENT,TRIMALLEOLAR ANKLE FRACTURE Left 2014 PAST SURGICAL HISTORY OF 2009 precancerous lesions removed from legs and rt shoulder Family History FAMILY HISTORY Problem Relation Age of Onset Hypertension Mother Stroke Mother Alzheimer's Disease Mother other (heart arrhythmia) Mother AF on Xarelto other (fibrocystic) Mother BREASTS Alzheimer's Disease Father Arthritis Brother knee replaced Patient Allergies ALLERGIES Allergen Reactions Buspar [Buspirone] Other: See Comments Increased depression Celexa [Citalopram] Other: See Comments Increased anxiety and slight depression. Current Medications Current Outpatient Medications on File Prior to Visit Medication Sig metoprolol succinate ER (TOPROL XL) 50 mg 24 hr tablet Take 1 tablet by mouth once daily. hydroCHLOROthiazide 12.5 mg capsule Take 1 capsule by mouth once daily. clobetasol (TEMOVATE) 0.05 % ointment Use only a thin layer over affected area. Use 1-3 times weekly for maintenance nystatin (MYCOSTATIN) cream Apply 1 application to affected area two times a day. clonazePAM (KLONOPIN) 0.5 mg tablet Take 1/2 a once daily as needed for anxiety atorvastatin (LIPITOR) 10 mg tablet Take 1 tablet by mouth once daily. ELIQUIS 5 mg tab(s) TAKE 1 TAB BY MOUTH TWICE DAILY. STOP USING XARELTO calcium carbonate 600 mg-cholecalciferol 200 units 600 mg-5 mcg (200 unit) tab Take 1 tablet by mouth once daily. Cholecalciferol, Vitamin D3, (VITAMIN D-3) 50 mcg (2,000 unit) cap Take one daily FOLIC ACID/MULTIVIT-MIN/LUTEIN (CENTRUM SILVER ORAL) Take 1 tablet by mouth once daily. Cranberry 500 mg cap Take 2 capsules by mouth once daily. No current facility-administered medications on file prior to visit. Social History Social History Tobacco Use Smoking status: Some Days Current packs/day: 0.25 Average packs/day: 0.3 packs/day for 30.0 years (7.5 ttl pk-yrs) Types: Cigarettes Smokeless tobacco: Never Vaping Use Vaping status: Never Used Substance Use Topics Alcohol use: Yes Comment: rare Drug use: No Review of Symptoms REVIEW OF SYSTEMS GENERAL: No weight loss, malaise or fevers RESPIRATORY: Negative for cough, hemoptysis, wheezing, COPD, dyspnea or shortness of breath CARDIOVASCULAR: Negative for chest pain, increased leg swelling, hypertension, CHF or palpitations GI: No nausea, vomiting, or diarrhea and No frequent heartburn or reflux symptoms PSYCH: hs been doing ok. Uses the klonopin prn. ENDOCRINE: Negative for cold or heat intolerance, polyuria, polydipsia and goiter NEURO: No history of headaches, syncope, paralysis, seizures or tremors EXAM: BP 118/78 Pulse 70 Resp 16 Wt 100.2 kg (221 lb) LMP 11/16/2005 BMI 36.22 kg/m? Last 4 Encounter Wt Readings: Date: Wt: 09/13/2024 100.2 kg (221 lb) 03/29/2024 98.4 kg (217 lb) 04/14/2023 98 kg (216 lb) 10/09/2022 100.7 kg (222 lb) General Appearance: Well appearing, alert, in no acute distress, well-hydrated, well nourished.. Neck: Supple, no adenopathy; thyroid symmetric, normal size, no bruits. Lungs: Lungs clear to auscultation. (more content not included)... [facility] 08-17-2024 Telephone encounter Note Prescription Refill Information The patient has been identified by name and date of : Yes Caregiver verified no other encounters exist for this prescription request: Yes Caregiver confirmed with patient/requestor that no other refills are due, in the near future, with this provider at this time: Yes The last office visit in the department: 03/29/24 Does the patient have a future office visit with this provider/department: Yes Requested Prescriptions Pending Prescriptions Disp Refills metoprolol succinate ER (TOPROL XL) 50 mg 24 hr tablet 90 tablet 1 Sig: Take 1 tablet by mouth once daily. Lisa Ruiz August 17, 2024 12:56 PM [facility] 08-17-2024 Miscellaneous Notes Prescription Refill Information The patient has been identified by name and date of : Yes Caregiver verified no other encounters exist for this prescription request: Yes Caregiver confirmed with patient/requestor that no other refills are due, in the near future, with this provider at this time: Yes The last office visit in the department: 03/29/24 Does the patient have a future office visit with this provider/department: Yes Requested Prescriptions Pending Prescriptions Disp Refills metoprolol succinate ER (TOPROL XL) 50 mg 24 hr tablet 90 tablet 1 Sig: Take 1 tablet by mouth once daily. Lisa Cody Ruiz August 17, 2024 12:56 PM documented in this encounter [facility] 06-14-2024 Telephone encounter Note Patient has been identified by name and date of : Yes, Patient phones for refill(s): Requested Prescriptions Pending Prescriptions Disp Refills hydroCHLOROthiazide 12.5 mg capsule 90 capsule 2 Sig: Take 1 capsule by mouth once daily. Date of last office visit in primary care: 03/29/2024 Date of next office visit in primary care: 09/13/2024 Please advise. Thank you. Manuela Castellano. [facility] 06-14-2024 Miscellaneous Notes Patient has been identified by name and date of : Yes, Patient phones for refill(s): Requested Prescriptions Pending Prescriptions Disp Refills hydroCHLOROthiazide 12.5 mg capsule 90 capsule 2 Sig: Take 1 capsule by mouth once daily. Date of last office visit in primary care: 03/29/2024 Date of next office visit in primary care: 09/13/2024 Please advise. Thank you. Manuela Castellano. documented in this encounter [facility] 05-25-2024 Telephone encounter Note The following approved medication requests have been transmitted electronically. Requested Prescriptions Signed Prescriptions Disp Refills clobetasol (TEMOVATE) 0.05 % ointment 45 g 3 Sig: Use only a thin layer over affected area. Use 1-3 times weekly for maintenance Authorizing Provider: KAI AYERS MD [facility] 05-25-2024 Miscellaneous Notes The following approved medication requests have been transmitted electronically. Requested Prescriptions Signed Prescriptions Disp Refills clobetasol (TEMOVATE) 0.05 % ointment 45 g 3 Sig: Use only a thin layer over affected area. Use 1-3 times weekly for maintenance Authorizing Provider: KAI AYERS MD Prescription Refill Information The patient has been identified by name and date of : Yes Caregiver verified no other encounters exist for this prescription request: Yes Caregiver confirmed with patient/requestor that no other refills are due, in the near future, with this provider at this time: Yes The last office visit in the department: 03/29/24 Does the patient have a future office visit with this provider/department: Yes Requested Prescriptions Pending Prescriptions Disp Refills clobetasol (TEMOVATE) 0.05 % ointment 45 g 3 Sig: Use only a thin layer over affected area. Use 1-3 times weekly for maintenance Marilou Ruiz May 25, 2024 9:58 AM documented in this encounter [facility] 05-25-2024 Telephone encounter Note Phoned patient and advised Rx sent in as requested. She voiced understanding. Aleyda Duran LPN [facility] 05-25-2024 Miscellaneous Notes Phoned patient and advised Rx sent in as requested. She voiced understanding. Aleyda Duran LPN Let patient know refill for nystatin powder sent in. The following approved medication requests have been transmitted electronically. Requested Prescriptions Signed Prescriptions Disp Refills nystatin (MYCOSTATIN) cream 30 g 3 Sig: Apply 1 application to affected area two times a day. Authorizing Provider: KAI AYERS MD Bogdan is calling Kai Ayers MD today to request the following cream to use underneath breast area. Please send to [facility]. Disp Refills Start End nystatin (MYCOSTATIN) cream 30 g 3 03/27/2020 09/26/2020 Sig: Apply 1 application to affected area twice daily. Sent to pharmacy as: nystatin (MYCOSTATIN) cream Class: Normal Route: TOPICAL Order: [id number] E-Prescribing Status: Receipt confirmed by pharmacy (03/27/2020 10:43 AM EDT) Patient has been identified by name and birthdate. Duration of symptoms: N/A Person calling: self Call patient at: on cell [phone] (home) Was an appointment scheduled: No Closing statement: Results or non-symptom based questions: Thank you for calling [facility], your call will be returned within the next business day. Marilou Ruiz documented in this encounter [facility] 05-25-2024 Telephone encounter Note Let patient know refill for nystatin powder sent in. The following approved medication requests have been transmitted electronically. Requested Prescriptions Signed Prescriptions Disp Refills nystatin (MYCOSTATIN) cream 30 g 3 Sig: Apply 1 application to affected area two times a day. Authorizing Provider: KAI AYERS MD [facility] 05-25-2024 Telephone encounter Note Prescription Refill Information The patient has been identified by name and date of : Yes Caregiver verified no other encounters exist for this prescription request: Yes Caregiver confirmed with patient/requestor that no other refills are due, in the near future, with this provider at this time: Yes The last office visit in the department: 03/29/24 Does the patient have a future office visit with this provider/department: Yes Requested Prescriptions Pending Prescriptions Disp Refills clobetasol (TEMOVATE) 0.05 % ointment 45 g 3 Sig: Use only a thin layer over affected area. Use 1-3 times weekly for maintenance Marilou Ruiz May 25, 2024 9:58 AM [facility] 05-25-2024 Telephone encounter Note Bogdan is calling Kai Ayers MD today to request the following cream to use underneath breast area. Please send to [facility]. Disp Refills Start End nystatin (MYCOSTATIN) cream 30 g 3 03/27/2020 09/26/2020 Sig: Apply 1 application to affected area twice daily. Sent to pharmacy as: nystatin (MYCOSTATIN) cream Class: Normal Route: TOPICAL Order: [id number] E-Prescribing Status: Receipt confirmed by pharmacy (03/27/2020 10:43 AM EDT) Patient has been identified by name and birthdate. Duration of symptoms: N/A Person calling: self Call patient at: on cell [phone] (home) Was an appointment scheduled: No Closing statement: Results or non-symptom based questions: Thank you for calling [facility], your call will be returned within the next business day. Marilou Ruiz [facility] 03-30-2024 Telephone encounter Note Pt notified and verbalized understanding Isabela Pro MA [facility] 03-30-2024 Miscellaneous Notes Pt notified and verbalized understanding Isabela Pro MA Let patient know A1c was slightly elevated again at 5.7%. normal is 4.3-5.6% and diabetes is 6.5% and higher. Advised on reduced sugars, sweets, starches and carbs in diet. All her other labs were good documented in this encounter [facility] 03-30-2024 Telephone encounter Note Let patient know A1c was slightly elevated again at 5.7%. normal is 4.3-5.6% and diabetes is 6.5% and higher. Advised on reduced sugars, sweets, starches and carbs in diet. All her other labs were good [facility] 03-29-2024 History of Present illness Narrative Chief Complaint Patient presents with: Medicare Wellness Exam HPI Bogdan Batres is a 68 year old female who presents here today for Chronic Medical Conditions. and Annual Physical Visit. Patient with hx of A. Fib, HLP, elevated a1c, smoker, anxiety and panic disorder. Past medical history, appointments, medications, allergies reviewed. Patient sees [facility] 03/2024 Patient has been doing well. Sees Derm for full body skin check. Was thinking about retiring in Nov 2024 and just got a nice raise so may stay longer. Previous Medical History PAST MEDICAL HISTORY Diagnosis Date Advance directive discussed with patient 10/09/2022 Discussed 10/2022: need copies Broken ankle, left, closed, initial encounter 11/18/2016 Dermatophytosis, nail 06/03/2017 Generalized anxiety disorder 12/20/2018 H/O actinic keratosis 06/03/2017 Dr. Moreno, dermatology. Lichen sclerosus 06/03/[address] 10/09/2022 DPA: Cachorro (son) Localized edema 03/21/2021 right ankle Lumbago 04/01/2006 Mixed hyperlipidemia 04/03/2011 Obesity, Class II, BMI 35-39.9 03/21/2021 Palpitations 06/23/2019 Panic disorder without agoraphobia 09/20/2006 Persistent atrial fibrillation (HCC) 04/21/2021 Smoker 03/23/2006 Started around 18 yo up to 1/2 a PPD, as of 12/2018 just under 1/2 a PPD. Well adult exam 10/11/2020 Last done: 10/11/2020 Previous Surgical History PAST SURGICAL HISTORY Procedure Laterality Date 2D ECHO (EXEP) 05/02/2021 EF=65%, LA mildly enlarged, 1+ [place], TI. COLSC FLX W/RMVL OF TUMOR POLYP LESION SNARE TQ 08/18/2012 nl mucosa, prob. hyperplastic, no adenoma NUCLEAR STRESS LEXISCAN (CARD) 05/02/2021 negative OPEN TREATMENT,TRIMALLEOLAR ANKLE FRACTURE Left 2014 PAST SURGICAL HISTORY OF 2009 precancerous lesions removed from legs and rt shoulder Family History FAMILY HISTORY Problem Relation Age of Onset Hypertension Mother Stroke Mother Alzheimer's Disease Mother other (heart arrhythmia) Mother AF on Xarelto other (fibrocystic) Mother BREASTS Alzheimer's Disease Father Arthritis Brother knee replaced Patient Allergies ALLERGIES Allergen Reactions Buspar [Buspirone] Other: See Comments Increased depression Celexa [Citalopram] Other: See Comments Increased anxiety and slight depression. Current Medications Current Outpatient Medications on File Prior to Visit Medication Sig atorvastatin (LIPITOR) 10 mg tablet Take 1 tablet by mouth once daily. metoprolol succinate ER (TOPROL XL) 50 mg 24 hr tablet Take 1 tablet by mouth once daily. clonazePAM (KLONOPIN) 0.5 mg tablet Take 1/2 a once daily as needed for anxiety hydroCHLOROthiazide 12.5 mg capsule Take 1 capsule by mouth once daily. triamcinolone acetonide (KENALOG) 0.1 % cream Apply 1 application to affected area twice daily. clobetasol (TEMOVATE) 0.05 % ointment Use only a thin layer over affected area. Use 1-3 times weekly for maintenance ELIQUIS 5 mg tab(s) TAKE 1 TAB BY MOUTH TWICE DAILY. STOP USING XARELTO calcium carbonate 600 mg-cholecalciferol 200 units 600 mg-5 mcg (200 unit) tab Take 1 tablet by mouth once daily. Cholecalciferol, Vitamin D3, (VITAMIN D-3) 50 mcg (2,000 unit) cap Take one daily FOLIC ACID/MULTIVIT-MIN/LUTEIN (CENTRUM SILVER ORAL) Take 1 tablet by mouth once daily. Cranberry 500 mg cap Take 2 capsules by mouth once daily. No current facility-administered medications on file prior to visit. Social History Social History Tobacco Use Smoking status: Some Days Packs/day: 0.25 Years: 30.00 Additional pack years: 0.00 Total pack years: 7.50 Types: Cigarettes Smokeless tobacco: Never Vaping Use Vaping Use: Never used Substance Use Topics Alcohol use: Yes Comment: rare Drug use: No Review of Symptoms REVIEW OF SYSTEMS GENERAL: No weight loss, malaise or fevers HEENT: Negative for frequent or significant headaches, No changes in hearing or vision, no nose bleeds or other nasal problems NECK: Negative for lumps, goiter, pain and significant neck swelling RESPIRATORY: Negative for cough, hemoptysis, wheezing, COPD. Some shortness of breath with stairs and has been stable. CARDIOVASCULAR: Negative for chest pain, increased leg swelling, hypertension, CHF or increased. palpitations GI: No nausea, vomiting, or diarrhea, No heartburn or reflux symptoms, and no blood : No history of dysuria, frequency or blood MUSCULOSKELETAL: Negative for joint pain or swelling, back pain or muscle pain SKIN: seeing Derm PSYCH: anxiety has been stable. No depression. HEMATOLOGY/LYMPHOLOGY: Negative for prolonged bleeding, bruising easily or swollen nodes ENDOCRINE: Negative for cold or heat intolerance, polyuria, polydipsia and goiter NEURO: No history of headaches, syncope, paralysis, seizures or tremors EXAM: BP 124/84 (BP Site: Left Arm, BP Position: Sitting, BP Cuff Size: Large Adult) Pulse 74 Ht 166.4 cm (5' 5.5) Wt 98.4 kg (217 lb) LMP 11/16/2005 BMI 35.56 kg/m Last 4 Encounter Wt Readings: Date: Wt: 03/29/2024 98.4 kg (217 lb) 04/14/2023 98 kg (216 lb) 10/09/2022 100.7 kg (222 lb) 03/20/2022 98 kg (216 lb) General Appearance: Well appearing, alert, in no acute distress, well-hydrated, well nourished. and Obese. Head: Normocephalic, no masses, lesions, tenderness or abnormalities. Eyes: Anicteric sclera. Pupils are equally round and reactive to light. Extraocular movements are intact. . Ears: External ears, TM's normal, canals clear. Nose/Sinuses: Nares normal, septum midline, mucosa normal, no drainage or sinus tenderness. Oropharynx: Lips, mucosa, and tongue normal, teeth and gums normal, oropharynx normal. Neck: Supple, no adenopathy; thyroid symmetric, normal size, no bruits. Lungs: Lungs clear to auscultation. No wheezing, rhonchi, rales.. Heart: RRR without murmur, gallop, or rubs. No ectopy. Abdomen: Normal abdominal exam, Abdomen soft, non-tender. Bowel sounds normal. No masses, organomegaly. Extremities: No deformities, edema, skin discoloration, clubbing or cyanosis. Good capillary refill. . Musculoskeletal: Muscular strength intact, No joint swelling, deformity, or tenderness. Peripheral Pulses: Normal. Neurologic: Gait normal. Reflexes normal and symmetric. Sensation to light touch and crainal nerves 2-12 intact.. Health Maintenance List Shingrix Vaccine(1 of 2) Never done RSV Vaccine(1 - 1-dose 60+ series) Never done Mammogram Screening due on 10/29/2021 Colorectal Cancer Screening due on 08/18/2022 Bone Density Screening due on 11/05/2022 Covid-19 Vaccine( season) due on 06/04/2023 Advance Directive Discussion due on 10/04/2023 Behavioral Health Screening Never done Influenza Vaccine(Season Ended) due on 06/04/2024 DTaP,Tdap,Td Vaccine(2 - Td or Tdap) due on 11/13/2024 Diabetes Screening due on 10/09/2025 Lipid Screening due on 10/09/2027 Hepatitis C Screening Completed Pneumococcal Vaccine: 65+ Completed Data reviewed A/P ASSESSMENT/PLAN: 1. Well adult exam - ICD9: V70.0, ICD10: Z00.00 (primary diagnosis) - Counseled on healthy diet and regular exercise - Discussed need and benefit for weight loss. BMI 35.56 kg/(m^2) - Follow up for annual exam in one year - advised on RSV and shingrix 2. Mixed hyperlipidemia - ICD9: 272.2, ICD10: E78.2 - - await labs - Continue current medications - Counseled on healthy diet and regular exercise - Discussed need for and benefit of weight loss. BMI 35.56 kg/(m^2) 3. Elevated hemoglobin A1c - ICD9: 790.29, ICD10: R73.09 - await labs 4. Persistent atrial fibrillation (HCC) - ICD9: 427.31, ICD10: I48.19 - clinically stable and managed per cardio 5. Generalized anxiety disorder - ICD9: 300.02, ICD10: F41.1 - stable with current Tx. - cont Klonopin prn. 6. Panic disorder without agoraphobia - ICD9: 300.01, ICD10: F41.0 Cont prn - CLONAZEPAM 0.5 MG TABLET 7. Obesity, Class II, BMI 35-39.9 - ICD9: 278.00, ICD10: E66.9 - patient to work on increased exercise. 8. Advance directive discussed with patient - ICD9: V65.49, ICD10: Z71.89 - patient to bring in copies. 9. Screening for colon cancer - ICD9: V76.51, ICD10: Z12.11 - consult to Gen Surgery 10. Screening for osteoporosis - ICD9: V82.81, ICD10: Z13.820 Check - DXA-AXIAL SKELETON - BD DXA TRABECULAR BONE SCORE (TBS) 11. Asymptomatic menopause - ICD9: V49.81, ICD10: Z78.0 Check - DXA-AXIAL SKELETON - BD DXA TRABECULAR BONE SCORE (TBS) Requested Prescriptions Signed Prescriptions Disp Refills clonazePAM (KLONOPIN) 0.5 mg tablet 15 tablet 1 Sig: Take 1/2 a once daily as needed for anxiety F/u 6 months routine Kai Ayers MD documented [facility] 03-29-2024 Instructions Kai Ayers MD - 03/29/2024 10:57 AM EDT If you are considering getting the shingrix vaccine for the prevention of shingles and the RSV vaccine please check to see if covered by insurance and if you can get it at your doctors office. Please bring in copies of your power of employment attorney for health care and living will. BONE MINERAL DENSITY PATIENT INSTRUCTIONS ======= Bone mineral density testing measures the amount of calcium in certain parts of your bones. This information determines how strong your bones are. The test is used to detect osteoporosis, a disease in which the bone's mineral content and density are low, increasing a person's risk of fractures. The lumbar spine (lower back) and the hip are the skeletal sites usually examined. For the test, remember that: 1. You cannot take this test if you are . 2. Eat a normal diet on the day of the test. 3. Take your medications as you normally would. 4. DO NOT take calcium supplements (such as Tums) for 24 hours before the test. 5. On the day of the test, leave valuables (jewelry or credit cards) at home. 6. The test should be performed prior to oral, rectal or IV contrast studies, or at least 7 days after any of these studies. For the test, you may be asked to wear a hospital gown. You will lie on your back, on a padded table, in a comfortable position. Generally, you can resume your usual activities immediately. documented in this encounter [facility] 03-28-2024 History of Present illness Narrative Scan on 03/28/2024 4:27 PM by Provider, ELIAS Guerrero: Consultation - Cardiology documented in this encounter [facility] 03-06-2024 Telephone encounter Note Patient has been identified by name and date of : Yes Patient phones for refill(s): Requested Prescriptions Pending Prescriptions Disp Refills atorvastatin (LIPITOR) 10 mg tablet 90 tablet 1 Sig: Take 1 tablet by mouth once daily. Date of last office visit in primary care: 04/14/2023 Date of next office visit in primary care: 03/29/2024 Please advise. Thank you. Manuela Castellano. [facility] 03-06-2024 Miscellaneous Notes Patient has been identified by name and date of : Yes Patient phones for refill(s): Requested Prescriptions Pending Prescriptions Disp Refills atorvastatin (LIPITOR) 10 mg tablet 90 tablet 1 Sig: Take 1 tablet by mouth once daily. Date of last office visit in primary care: 04/14/2023 Date of next office visit in primary care: 03/29/2024 Please advise. Thank you. Manuela Castellano. documented in this encounter [facility] 02-14-2024 Telephone encounter Note Patient has been identified by name and date of : Yes, Provider Dr. Ayers Date 02-14-24 Time 9:58 am Patient phones for refill(s): Requested Prescriptions Pending Prescriptions Disp Refills metoprolol succinate ER (TOPROL XL) 50 mg 24 hr tablet 90 tablet 1 Sig: Take 1 tablet by mouth once daily. Date of last office visit in primary care: 04/14/2023 Date of next office visit in primary care: 03/29/2024 Please advise. Thank you. Jessica Ruiz. [facility] 02-14-2024 Miscellaneous Notes Patient has been identified by name and date of : Yes, Provider Dr. Ayers Date 02-14-24 Time 9:58 am Patient phones for refill(s): Requested Prescriptions Pending Prescriptions Disp Refills metoprolol succinate ER (TOPROL XL) 50 mg 24 hr tablet 90 tablet 1 Sig: Take 1 tablet by mouth once daily. Date of last office visit in primary care: 04/14/2023 Date of next office visit in primary care: 03/29/2024 Please advise. Thank you. Jessica Ruiz. documented in this encounter [facility] 12-29-2023 Telephone encounter Note Patient has been identified by name and date of : Yes Patient phones for refill(s): Requested Prescriptions Pending Prescriptions Disp Refills clonazePAM (KLONOPIN) 0.5 mg tablet 15 tablet 1 Sig: Take 1/2 a once daily as needed for anxiety Date of last office visit in primary care: 04/14/2023 Date of next office visit in primary care: 01/22/2024 Please advise. Thank you. Marilou Malcolm [facility]. [facility] 12-29-2023 Miscellaneous Notes Patient has been identified by name and date of : Yes Patient phones for refill(s): Requested Prescriptions Pending Prescriptions Disp Refills clonazePAM (KLONOPIN) 0.5 mg tablet 15 tablet 1 Sig: Take 1/2 a once daily as needed for anxiety Date of last office visit in primary care: 04/14/2023 Date of next office visit in primary care: 01/22/2024 Please advise. Thank you. Marilou Ruiz. documented in this encounter [facility] 09-15-2023 Miscellaneous Notes Patient has been identified by name and date of : Yes Requested Prescriptions Pending Prescriptions Disp Refills hydroCHLOROthiazide 12.5 mg capsule 90 capsule 2 Sig: Take 1 capsule by mouth once daily. RX INSTRUCTIONS: Patient aware RX will be sent to pharmacy. No need to notify patient. Janny Robins MA Isha 04/2023 Nov 10/2023 Last refill; 02/2023 Patient has been identified by name and date of : Yes Requested Prescriptions Pending Prescriptions Disp Refills hydroCHLOROthiazide 12.5 mg capsule 90 capsule 2 Sig: Take 1 capsule by mouth once daily. RX INSTRUCTIONS: Patient aware RX will be sent to pharmacy. No need to notify patient. Jessica Richardson Pss documented in this encounter [facility] 09-03-2023 Miscellaneous Notes The following approved medication requests have been transmitted electronically. Requested Prescriptions Signed Prescriptions Disp Refills atorvastatin (LIPITOR) 10 mg tablet 90 tablet 1 Sig: Take 1 tablet by mouth once daily. Authorizing Provider: KAI AYERS MD Last refill 04/08/23 Qty: 90 with 1 refill ISHA 04/14/23 NOV 10/27/23 Maylin Gilliam LPN Patient has been identified by name and date of : Yes Requested Prescriptions Pending Prescriptions Disp Refills atorvastatin (LIPITOR) 10 mg tablet 90 tablet 1 Sig: Take 1 tablet by mouth once daily. RX INSTRUCTIONS: Patient aware RX will be sent to pharmacy. No need to notify patient. Tova Kirkpatrick Pss documented in this encounter [facility] 08-16-2023 Miscellaneous Notes The following approved medication requests have been transmitted electronically. Requested Prescriptions Signed Prescriptions Disp Refills metoprolol succinate ER (TOPROL XL) 50 mg 24 hr tablet 90 tablet 1 Sig: Take 1 tablet by mouth once daily. Authorizing Provider: KAI AYERS MD Patient has been identified by name and date of : Yes Requested Prescriptions Pending Prescriptions Disp Refills metoprolol succinate ER (TOPROL XL) 50 mg 24 hr tablet 90 tablet 3 Sig: Take 1 tablet by mouth once daily. RX INSTRUCTIONS: Patient aware RX will be sent to pharmacy. No need to notify patient. Patient last office visit: 04/23/23 Patient next office visit: 10/27/23 Tova Begum MA Patient has been identified by name and date of : Yes Requested Prescriptions Pending Prescriptions Disp Refills metoprolol succinate ER (TOPROL XL) 50 mg 24 hr tablet 90 tablet 3 Sig: Take 1 tablet by mouth once daily. RX INSTRUCTIONS: Patient aware RX will be sent to pharmacy. No need to notify patient. Jessica Ruiz documented in this encounter [facility] 05-05-2023 Miscellaneous Notes The following approved medication requests have been transmitted electronically. Requested Prescriptions Signed Prescriptions Disp Refills triamcinolone acetonide (KENALOG) 0.1 % cream 30 g 0 Sig: Apply 1 application to affected area twice daily. Authorizing Provider: KAI AYERS clonazePAM (KLONOPIN) 0.5 mg tablet 15 tablet 1 Sig: Take 1/2 a once daily as needed for anxiety Authorizing Provider: KAI AYERS MD PDMP website checked and validated. All prescriptions have been APPROPRIATELY filled. No suspicious activity was identified. 05/05/2023 by Kai Ayers MD Patient has been identified by name and date of : Yes Last office visit in this department: 04/14/2023 Labs-10/09/22 NOV-10/27/23 RX INSTRUCTIONS: Patient requesting a call when RX is approved and sent to the pharmacy. Please call patient at: [phone] Patient phones requesting refills as follows: Requested Prescriptions Pending Prescriptions Disp Refills triamcinolone acetonide (KENALOG) 0.1 % cream 30 g 0 Sig: Apply 1 application to affected area twice daily. clonazePAM (KLONOPIN) 0.5 mg tablet 15 tablet 1 Sig: Take 1/2 a once daily as needed for anxiety Please review and advise. Oxana Fragoso documented in this encounter [facility] 04-08-2023 Miscellaneous Notes Patient has been identified by name and date of : Yes Requested Prescriptions Pending Prescriptions Disp Refills atorvastatin (LIPITOR) 10 mg tablet 90 tablet 1 Sig: Take 1 tablet by mouth once daily. RX INSTRUCTIONS: Patient aware RX will be sent to pharmacy. No need to notify patient. 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 Rest of refills sent. Ruth Lucia PA-C ISHA 10/09/22 NOV 04/14/23 Tova Begum MA Patient has been identified by name and date of : Yes Requested Prescriptions Pending Prescriptions Disp Refills metoprolol succinate ER (TOPROL XL) 50 mg 24 hr tablet 90 tablet 1 Sig: Take 1 tablet by mouth once daily. ELIQUIS 5 mg tab(s) 180 tablet 1 Sig: Take 1 tablet by mouth twice daily. hydroCHLOROthiazide 12.5 mg capsule 90 capsule 1 Sig: Take 1 capsule by mouth once daily. clobetasol (TEMOVATE) 0.05 % ointment 45 g 3 Sig: Use only a thin layer over affected area. Use 1-3 times weekly for maintenance RX INSTRUCTIONS: Please send by tomorrow. Patient aware RX will be sent to pharmacy. No need to notify patient. Marilou Malcolm Pss documented in this encounter [facility] 10-12-2022 Miscellaneous Notes Patient notified and voiced understanding. Janny Robins MA Let patient know UA, CBC, thyroid labs, lipid panel, blood sugar tests, electrolytes, liver functions and kidney functions were all ok. documented in this encounter [facility] 10-09-2022 Instructions Kai Ayers MD - 10/09/2022 3:26 PM EST Please bring in copies of living will and durable power of employment attorney for health care. documented in this encounter [facility] 10-09-2022 History of Present illness Narrative Chief Complaint Patient presents with: Physical HPI Bogdan Batres is a 66 year old female who presents here today for Physical . Patient with hx of A. Fib, HLP, elevated a1c, smoker, anxiety and panic disorder. Patient has been doing ok, no new issues or concerns. Past medical history, appointments, medications, allergies reviewed. Previous Medical History PAST MEDICAL HISTORY Diagnosis Date Broken ankle, left, closed, initial encounter 11/18/2016 Dermatophytosis, nail 06/03/2017 Generalized anxiety disorder 12/20/2018 H/O actinic keratosis 06/03/2017 Dr. Moreno, dermatology. Lichen sclerosus 06/03/2017 Lumbago 04/01/2006 Mixed hyperlipidemia 04/03/2011 Obesity, Class II, BMI 35-39.9 03/21/2021 Palpitations 06/23/2019 Panic disorder without agoraphobia 09/20/2006 Persistent atrial fibrillation (HCC) 04/21/2021 Smoker 03/23/2006 Started around 18 yo up to 1/2 a PPD, as of 12/2018 just under 1/2 a PPD. Well adult exam 10/11/2020 Last done: 10/11/2020 Previous Surgical History PAST SURGICAL HISTORY Procedure Laterality Date 2D ECHO (EXEP) 05/02/2021 EF=65%, LA mildly enlarged, 1+ [place], TI. COLSC FLX W/RMVL OF TUMOR POLYP LESION SNARE TQ 08/18/2012 nl mucosa, prob. hyperplastic, no adenoma NUCLEAR STRESS LEXISCAN (CARD) 05/02/2021 negative OPEN TREATMENT,TRIMALLEOLAR ANKLE FRACTURE Left 2014 PAST SURGICAL HISTORY OF 2009 precancerous lesions removed from legs and rt shoulder Family History FAMILY HISTORY Problem Relation Age of Onset Hypertension Mother Stroke Mother Alzheimer's Disease Mother other (heart arrhythmia) Mother AF on Xarelto other (fibrocystic) Mother BREASTS Alzheimer's Disease Father Arthritis Brother knee replaced Patient Allergies ALLERGIES Allergen Reactions Buspar [Buspirone] Other: See Comments Increased depression Celexa [Citalopram] Other: See Comments Increased anxiety and slight depression. Current Medications Current Outpatient Medications on File Prior to Visit Medication Sig atorvastatin (LIPITOR) 10 mg tablet Take 1 tablet by mouth once daily. hydroCHLOROthiazide (HYDRODIURIL, ESIDRIX) 12.5 mg capsule Take 1 capsule by mouth once daily. metoprolol succinate ER (TOPROL XL) 50 mg 24 hr tablet Take 1 tablet by mouth once daily. clonazePAM (KLONOPIN) 0.5 mg tablet Take 1/2 a once daily as needed for anxiety ELIQUIS 5 mg tab(s) TAKE 1 TAB BY MOUTH TWICE DAILY. STOP USING XARELTO triamcinolone acetonide (KENALOG) 0.1 % cream Apply 1 application to affected area twice daily. rivaroxaban (XARELTO) 20 mg tablet Take 1 tablet by mouth daily with dinner. (Patient not taking: Reported on 03/20/2022 ) calcium carbonate 600 mg-cholecalciferol 200 units (CALCIUM 600 + D,3,) 600 mg(1,500mg) -200 unit tab Take 1 tablet by mouth once daily. Cholecalciferol, Vitamin D3, (VITAMIN D-3) 50 mcg (2,000 unit) cap Take one daily cyanocobalamin, vitamin B-12, (VITAMIN B-12 ORAL) Take by mouth. clobetasol (TEMOVATE) 0.05 % ointment Use only a thin layer over affected area. Use 1-3 times weekly for maintenance FOLIC ACID/MULTIVIT-MIN/LUTEIN (CENTRUM SILVER ORAL) Take 1 tablet by mouth once daily. Cranberry 500 mg cap Take 2 capsules by mouth once daily. No current facility-administered medications on file prior to visit. Social History Social History Tobacco Use Smoking status: Every Day Packs/day: 0.25 Years: 30.00 Pack years: 7.50 Types: Cigarettes Smokeless tobacco: Never Vaping Use Vaping Use: Never used Substance Use Topics Alcohol use: Yes Comment: rare Drug use: No Review of Symptoms REVIEW OF SYSTEMS GENERAL: No weight loss, malaise or fevers HEENT: Negative for frequent or significant headaches, No changes in hearing or vision, no nose bleeds or other nasal problems NECK: Negative for lumps, goiter, pain and significant neck swelling RESPIRATORY: Negative for cough, hemoptysis, wheezing, COPD, dyspnea or shortness of breath CARDIOVASCULAR: Negative for chest pain, increased leg swelling, hypertension, CHF or changes in occasional palpitations GI: No nausea, vomiting, or diarrhea, No heartburn or reflux symptoms, and no blood : No history of dysuria, blood. MUSCULOSKELETAL: Negative for new joint pain or swelling, back pain or muscle pain SKIN: Negative for lesions, rash, and itching PSYCH: Negative for sleep disturbance, mood disorder and recent psychosocial stressors. Anxiety has been doing ok. HEMATOLOGY/LYMPHOLOGY: Negative for prolonged bleeding, bruising easily or swollen nodes ENDOCRINE: Negative for cold or heat intolerance, polyuria, polydipsia and goiter NEURO: No history of headaches, syncope, paralysis, seizures or tremors EXAM: BP 126/78 (BP Site: Right Arm, BP Position: Sitting, BP Cuff Size: Large Adult) Pulse 60 Resp 16 Ht 166.4 cm (5' 5.5) Wt 100.7 kg (222 lb) LMP 11/16/2005 BMI 36.38 kg/m Last 3 Encounter Wt Readings: Date: Wt: 10/09/2022 100.7 kg (222 lb) 03/20/2022 98 kg (216 lb) 02/24/2022 98.8 kg (217 lb 12.8 oz) General Appearance: Well appearing, alert, in no acute distress, well-hydrated, well nourished. and Obese. Skin: Skin color, texture, turgor normal, no suspicious rashes or lesions. Head: Normocephalic, no masses, lesions, tenderness or abnormalities. Eyes: Anicteric sclera. Pupils are equally round and reactive to light. Extraocular movements are intact. . Ears: External ears, TM's normal, canals clear. Neck: Supple, no adenopathy; thyroid symmetric, normal size, no bruits. Lungs: Lungs clear to auscultation. No wheezing, rhonchi, rales.. Heart: RRR without murmur, gallop, or rubs. No ectopy. Abdomen: Normal abdominal exam, Abdomen soft, non-tender. Bowel sounds normal. No masses, organomegaly. Extremities: No deformities, edema, skin discoloration. Good capillary refill. . Musculoskeletal: Muscular strength intact, No joint swelling, deformity, or tenderness. Peripheral Pulses: Normal. Neurologic: Gait normal. Reflexes normal and symmetric. Sensation to light touch and crainal nerves 2-12 intact.. Health Maintenance List SHINGRIX VACCINE(1 of 2) Never done COVID-19 VACCINE(3 - Booster for Pfizer series) due on 10/07/2021 MAMMOGRAM due on 10/29/2021 INFLUENZA(1) due on 06/04/2022 COLORECTAL CANCER SCREENING due on 08/18/2022 ADVANCE DIRECTIVE DISCUSSION Never done DEPRESSION ASSESSMENT Never done DTAP,TDAP,TD(2 - Td or Tdap) due on 11/13/2024 DIABETES SCREEN due on 03/20/2025 LIPID SCREEN due on 03/20/2027 BONE DENSITY Completed HEPATITIS C SCREENING Completed PNEUMOCOCCAL: 65+ Completed Data reviewed A/P ASSESSMENT/PLAN: 1. Well adult exam - ICD9: V70.0, ICD10: Z00.00 (primary diagnosis) - Counseled on healthy diet and regular exercise - Calcium intake with supplements or by diet of 1000 mg/day for under 50, 1701-0336 mg/day for 50+ - Patient was counseled [id number] by myself (the billing provider) for the following immunizations and vaccine components, including side effects: Influenza. Patient consents for immunization and understands risks and benefits. A VIS sheet on each immunization was given to the patient. 2. Mixed hyperlipidemia - ICD9: 272.2, ICD10: E78.2 - to be determined upon return of lab results - Encouraged following a low fat, low cholesterol diet. - Discussed the benefits of regular aerobic exercise and weight loss. - Encouraged following a low carbohydrate, healthy oil intake diet. 3. Elevated hemoglobin A1c - ICD9: 790.29, ICD10: R73.09 - await A1c. 4. Generalized anxiety disorder - ICD9: 300.02, ICD10: F41.1 - cont current tx with no changes. 5. Panic disorder without agoraphobia - ICD9: 300.01, ICD10: F41.0 - as per #5 6. Persistent atrial fibrillation (HCC) - ICD9: 427.31, ICD10: I48.19 - management per cardio 7. Smoker - ICD9: 305.1, ICD10: F17.200 - Cessation encouraged. - Counseling was given focusing on the harmful effects of this addiction especially given the patient's medical condition(s) which will be worsened because of the chemicals in tobacco. 8. Obesity, Class II, BMI 35-39.9 - ICD9: 278.00, ICD10: E66.9 Weight increasing - Behavioral intervention 9. Screening for colon cancer - ICD9: V76.51, ICD10: Z12.11 - CONSULT TO GENERAL SURGERY 10. Advance directive discussed with patient - ICD9: V65.49, ICD10: Z71.89 - patient to bring in copies 11. Encounter for immunization - ICD9: V03.89, ICD10: Z23 - INFLUENZA SEASONAL QUADRIVALENT HIGH DOSE AGE 65+: given F/u 6 months routine Kai Ayers MD documented [facility] 09-22-2022 Miscellaneous Notes Patient notified. Verbalized understanding. Let patient know a month supply of the lipitor was sent to get her to her next appt and then we can do a 6 month refill at that time. The following approved medication requests have been transmitted electronically. Requested Prescriptions Signed Prescriptions Disp Refills atorvastatin (LIPITOR) 10 mg tablet 60 tablet 0 Sig: Take 1 tablet by mouth once daily. Authorizing Provider: KAI AYERS MD [facility] 03/20/22 NOV 10/09/22 Bogdan Ben Batres is calling Kai Ayers MD today Patient only has one week left of the atorvastatin 10 mg. Per [facility] pharmacy, they are unable to fill medication. Please contact pharmacy, medication was written for 1 year supply in March atorvastatin (LIPITOR) 10 mg tablet 60 tablet 3 03/20/2022 Sig: Take 1 tablet by mouth once daily. Sent to pharmacy as: atorvastatin (LIPITOR) 10 mg tablet Class: Normal Route: ORAL Order: [id number] E-Prescribing Status: Receipt confirmed by pharmacy (03/20/2022 2:18 PM EDT) documented [facility] 09-18-[facility]22 Miscellaneous Notes The following approved medication requests have been transmitted electronically. Requested Prescriptions Signed Prescriptions Disp Refills hydroCHLOROthiazide (HYDRODIURIL, ESIDRIX) 12.5 mg capsule 90 capsule 1 Sig: Take 1 capsule by mouth once daily. Authorizing Provider: KAI AYERS MD Patient has been identified by name and date of : Yes Requested Prescriptions Pending Prescriptions Disp Refills hydroCHLOROthiazide (HYDRODIURIL, ESIDRIX) 12.5 mg capsule 90 capsule 1 Sig: Take 1 capsule by mouth once daily. RX INSTRUCTIONS: Patient aware RX will be sent to pharmacy. No need to notify patient. Janny Robins MA Isha: 03/2022 Nov: 10/2022 Last refill: 03/2022 Patient has been identified by name and date of : Yes Last office visit in this department: Visit date not found RX INSTRUCTIONS: Patient aware RX will be sent to pharmacy. No need to notify patient. Patient phones requesting refills as follows: Requested Prescriptions Pending Prescriptions Disp Refills hydroCHLOROthiazide (HYDRODIURIL, ESIDRIX) 12.5 mg capsule 90 capsule 1 Sig: Take 1 capsule by mouth once daily. Please review and advise. Renay Guillen Pss documented in this encounter [facility] 08-20-2022 Miscellaneous Notes Last Office Visit: 03/17/2022 Future Office Visit: 10/09/2022 Requested Prescriptions Pending Prescriptions Disp Refills metoprolol succinate ER (TOPROL XL) 50 mg 24 hr tablet 30 tablet 5 Sig: Take 1 tablet by mouth once daily. Date of Last Labs: 03/20/2022 documented in this encounter [facility] 03-23-2022 Miscellaneous Notes Patient notified of results and provider's instructions. Patient verbalizes understanding. Maylin Gilliam LPN Let patient knwo that her labs are normal. a1c is 5.8% which is still prediabetes but staying stable. Continue to watch carbs/sugars Thanks. Ruth Lucia PA-C documented in this encounter [facility] 03-20-2022 Instructions Kai Ayers MD - 03/20/2022 2:23 PM EDT Please get labs and urine test done on or after 09/04/2022 prior to your next visit. documented in this encounter [facility] 03-20-2022 History of Present illness Narrative Chief Complaint Patient presents with: F/U 6 months HPI Bogdan Batres is a 66 year old female who presents here today for Above Complaints. and Chronic Medical Conditions.. Patient with hx of A. Fib, HLP, elevated a1c, smoker, anxiety and panic disorder. Patient has been doing ok. No plans of vacation yet this summer. Past medical history, appointments, medications, allergies reviewed. Previous Medical History PAST MEDICAL HISTORY Diagnosis Date Broken ankle, left, closed, initial encounter 11/18/2016 Dermatophytosis, nail 06/03/2017 Generalized anxiety disorder 12/20/2018 H/O actinic keratosis 06/03/2017 Dr. Moreno, dermatology. Lichen sclerosus 06/03/2017 Lumbago 04/01/2006 Mixed hyperlipidemia 04/03/2011 Obesity, Class II, BMI 35-39.9 03/21/2021 Palpitations 06/23/2019 Panic disorder without agoraphobia 09/20/2006 Persistent atrial fibrillation (HCC) 04/21/2021 Smoker 03/23/2006 Started around 18 yo up to 1/2 a PPD, as of 12/2018 just under 1/2 a PPD. Well adult exam 10/11/2020 Last done: 10/11/2020 Previous Surgical History PAST SURGICAL HISTORY Procedure Laterality Date 2D ECHO (EXEP) 05/02/2021 EF=65%, LA mildly enlarged, 1+ [place], TI. COLSC FLX W/RMVL OF TUMOR POLYP LESION SNARE TQ 08/18/2012 nl mucosa, prob. hyperplastic, no adenoma NUCLEAR STRESS LEXISCAN (CARD) 05/02/2021 negative OPEN TREATMENT,TRIMALLEOLAR ANKLE FRACTURE Left 2014 PAST SURGICAL HISTORY OF 2009 precancerous lesions removed from legs and rt shoulder Family History FAMILY HISTORY Problem Relation Age of Onset Hypertension Mother Stroke Mother Alzheimer's Disease Mother other (heart arrhythmia) Mother AF on Xarelto other (fibrocystic) Mother BREASTS Alzheimer's Disease Father Arthritis Brother knee replaced Patient Allergies ALLERGIES Allergen Reactions Buspar [Buspirone] Other: See Comments Increased depression Celexa [Citalopram] Other: See Comments Increased anxiety and slight depression. Current Medications Current Outpatient Medications on File Prior to Visit Medication Sig ELIQUIS 5 mg tab(s) TAKE 1 TAB BY MOUTH TWICE DAILY. STOP USING XARELTO triamcinolone acetonide (KENALOG) 0.1 % cream Apply 1 application to affected area twice daily. metoprolol succinate ER (TOPROL XL) 50 mg 24 hr tablet Take 1 tablet by mouth once daily. clonazePAM (KLONOPIN) 0.5 mg tablet Take 1/2 a once daily as needed for anxiety hydroCHLOROthiazide 12.5 mg capsule Take 1 capsule by mouth once daily. atorvastatin (LIPITOR) 10 mg tablet Take 1 tablet by mouth once daily. calcium carbonate 600 mg-cholecalciferol 200 units (CALCIUM 600 + D,3,) 600 mg(1,500mg) -200 unit tab Take 1 tablet by mouth once daily. Cholecalciferol, Vitamin D3, (VITAMIN D-3) 50 mcg (2,000 unit) cap Take one daily clobetasol (TEMOVATE) 0.05 % ointment Use only a thin layer over affected area. Use 1-3 times weekly for maintenance FOLIC ACID/MULTIVIT-MIN/LUTEIN (CENTRUM SILVER ORAL) Take 1 tablet by mouth once daily. Cranberry 500 mg cap Take 2 capsules by mouth once daily. rivaroxaban (XARELTO) 20 mg tablet Take 1 tablet by mouth daily with dinner. (Patient not taking: Reported on 03/20/2022 ) cyanocobalamin, vitamin B-12, (VITAMIN B-12 ORAL) Take by mouth. No current facility-administered medications on file prior to visit. Social History Social History Tobacco Use Smoking status: Current Every Day Smoker Packs/day: 0.25 Years: 30.00 Pack years: 7.50 Types: Cigarettes Smokeless tobacco: Never Used Vaping Use Vaping Use: Never used Substance Use Topics Alcohol use: Yes Comment: rare Drug use: No Review of Symptoms REVIEW OF SYSTEMS GENERAL: No weight loss, malaise or fevers NECK: Negative for lumps, goiter, pain and significant neck swelling RESPIRATORY: Negative for cough, hemoptysis, wheezing, COPD, dyspnea or shortness of breath CARDIOVASCULAR: Negative for chest pain, increased leg swelling, hypertension, CHF or changes in her occasional palpitations PSYCH: Negative for sleep disturbance. Anxiety has been stable for the most part. ENDOCRINE: Negative for polyuria, polydipsia and goiter NEURO: No history of headaches, syncope, paralysis, seizures or tremors EXAM: BP 124/84 (BP Site: Right Arm, BP Position: Sitting, BP Cuff Size: Large Adult) Pulse 72 Resp 16 Wt 98 kg (216 lb) LMP 11/16/2005 BMI 35.94 kg/m Last 5 Encounter Wt Readings: Date: Wt: 03/20/2022 98 kg (216 lb) 02/24/2022 98.8 kg (217 lb 12.8 oz) 05/09/2021 94.3 kg (208 lb) 03/21/2021 98.4 kg (217 lb) 10/11/2020 96.2 kg (212 lb) Skin: Skin color, texture, turgor normal, no suspicious rashes or lesions. Neck: Supple, no adenopathy; thyroid symmetric, normal size, no bruits. Lungs: Lungs clear to auscultation. No wheezing, rhonchi, rales.. Heart: RRR without murmur, gallop, or rubs. No ectopy. Abdomen: Normal abdominal exam, Abdomen soft, non-tender. Bowel sounds normal. No masses, organomegaly. Extremities: No deformities, edema, skin discoloration. Musculoskeletal: No joint swelling, deformity, or tenderness. Strength normal. Peripheral Pulses: Normal. Neurologic: Gait normal. Sensation to light touch intact.. Health Maintenance List SHINGRIX VACCINE(1 of 2) Never done ADVANCE DIRECTIVE DISCUSSION Never done PNEUMOCOCCAL: 65+(2 - PPSV23 or PCV20) due on 10/11/2021 MAMMOGRAM due on 10/29/2021 COVID-19 VACCINE(3 - Booster for Pfizer series) due on 01/10/2022 COLORECTAL CANCER SCREENING due on 08/18/2022 DIABETES SCREEN due on 03/21/2024 DTAP,TDAP,TD(2 - Td or Tdap) due on 11/13/2024 LIPID SCREEN due on 03/21/2026 BONE DENSITY Completed INFLUENZA Completed HEPATITIS C SCREENING Completed DEPRESSION SCREENING Discontinued Data reviewed A/P ASSESSMENT/PLAN: 1. Mixed hyperlipidemia - ICD9: 272.2, ICD10: E78.2 (primary diagnosis) - to be determined upon return of lab results - Encouraged following a low fat, low cholesterol diet. - Discussed the benefits of regular aerobic exercise and weight loss. - Encouraged following a low carbohydrate, healthy oil intake diet. - Continue current therapy. 2. Panic disorder without agoraphobia - ICD9: 300.01, ICD10: F41.0 Cont prn - CLONAZEPAM 0.5 MG TABLET 3. Generalized anxiety disorder - ICD9: 300.02, ICD10: F41.1 - As per #2 4. Elevated hemoglobin A1c - ICD9: 790.29, ICD10: R73.09 - Await A1c - Cont work on life style changes 5. Persistent atrial fibrillation (HCC) - ICD9: 427.31, ICD10: I48.19 - Management per cardio 6. Smoker - ICD9: 305.1, ICD10: F17.200 - Cessation encouraged. - Counseling was given focusing on the harmful effects of this addiction especially given the patient's medical condition(s) which will be worsened because of the chemicals in tobacco. 7. Obesity, Class II, BMI 35-39.9 - ICD9: 278.00, ICD10: E66.9 Stable - Behavioral intervention 8. Encounter for immunization - ICD9: V03.89, ICD10: Z23 - PNEUMOCOCCAL VACCINE (PREVNAR 20): given Signed Prescriptions Disp Refills hydroCHLOROthiazide (HYDRODIURIL, ESIDRIX) 12.5 mg capsule 90 capsule 1 Sig: Take 1 capsule by mouth once daily. ARIELLE: No atorvastatin (LIPITOR) 10 mg tablet 60 tablet 3 Sig: Take 1 tablet by mouth once daily. ARIELLE: No clonazePAM (KLONOPIN) 0.5 mg tablet 15 tablet 1 Sig: Take 1/2 a once daily as needed for anxiety DENISE Class: C-IV ARIELLE: No F/u 6 months WAE check CMP, lipid, UA, A1c, CBC, TSH prior Kai Ayers MD Chief Complaint Patient presents with: F/U 6 months HPI Bogdan Batres is a 66 year old female who presents here today for 6 month follow up. Patient with hx of A. Fib, HLP, elevated a1c, smoker, anxiety and panic disorder. Past medical history, appointments, medications, allergies reviewed. Previous Medical History PAST MEDICAL HISTORY Diagnosis Date Broken ankle, left, closed, initial encounter 11/18/2016 Dermatophytosis, nail 06/03/2017 Generalized anxiety disorder 12/20/2018 H/O actinic keratosis 06/03/2017 Dr. Moreno, dermatology. Lichen sclerosus 06/03/2017 Lumbago 04/01/2006 Mixed hyperlipidemia 04/03/2011 Obesity, Class II, BMI 35-39.9 03/21/2021 Palpitations 06/23/2019 Panic disorder without agoraphobia 09/20/2006 Persistent atrial fibrillation (HCC) 04/21/2021 Smoker 03/23/2006 Started around 18 yo up to 1/2 a PPD, as of 12/2018 just under 1/2 a PPD. Well adult exam 10/11/2020 Last done: 10/11/2020 Previous Surgical History PAST SURGICAL HISTORY Procedure Laterality Date 2D ECHO (EXEP) 05/02/2021 EF=65%, LA mildly enlarged, 1+ [place], TI. COLSC FLX W/RMVL OF TUMOR POLYP LESION SNARE TQ 08/18/2012 nl mucosa, prob. hyperplastic, no adenoma NUCLEAR STRESS LEXISCAN (CARD) 05/02/2021 negative OPEN TREATMENT,TRIMALLEOLAR ANKLE FRACTURE Left 2014 PAST SURGICAL HISTORY OF 2009 precancerous lesions removed from legs and rt shoulder Family History FAMILY HISTORY Problem Relation Age of Onset Hypertension Mother Stroke Mother Alzheimer's Disease Mother other (heart arrhythmia) Mother AF on Xarelto other (fibrocystic) Mother BREASTS Alzheimer's Disease Father Arthritis Brother knee replaced Patient Allergies ALLERGIES Allergen Reactions Buspar [Buspirone] Other: See Comments Increased depression Celexa [Citalopram] Other: See Comments Increased anxiety and slight depression. Current Medications Current Outpatient Medications on File Prior to Visit Medication Sig ELIQUIS 5 mg tab(s) TAKE 1 TAB BY MOUTH TWICE DAILY. STOP USING XARELTO triamcinolone acetonide (KENALOG) 0.1 % cream Apply 1 application to affected area twice daily. metoprolol succinate ER (TOPROL XL) 50 mg 24 hr tablet Take 1 tablet by mouth once daily. rivaroxaban (XARELTO) 20 mg tablet Take 1 tablet by mouth daily with dinner. clonazePAM (KLONOPIN) 0.5 mg tablet Take 1/2 a once daily as needed for anxiety hydroCHLOROthiazide 12.5 mg capsule Take 1 capsule by mouth once daily. atorvastatin (LIPITOR) 10 mg tablet Take 1 tablet by mouth once daily. calcium carbonate 600 mg-cholecalciferol 200 units (CALCIUM 600 + D,3,) 600 mg(1,500mg) -200 unit tab Take 1 tablet by mouth once daily. Cholecalciferol, Vitamin D3, (VITAMIN D-3) 50 mcg (2,000 unit) cap Take one daily cyanocobalamin, vitamin B-12, (VITAMIN B-12 ORAL) Take by mouth. clobetasol (TEMOVATE) 0.05 % ointment Use only a thin layer over affected area. Use 1-3 times weekly for maintenance FOLIC ACID/MULTIVIT-MIN/LUTEIN (CENTRUM SILVER ORAL) Take 1 tablet by mouth once daily. Cranberry 500 mg cap Take 2 capsules by mouth once daily. No current facility-administered medications on file prior to visit. Social History Social History Tobacco Use Smoking status: Current Every Day Smoker Packs/day: 0.25 Years: 30.00 Pack years: 7.50 Types: Cigarettes Smokeless tobacco: Never Used Vaping Use Vaping Use: Never used Substance Use Topics Alcohol use: Yes Comment: rare Drug use: No documented in this [facility] 02-23-2022 Miscellaneous Notes Spoke with pt and she states rx is in process at pharm. Maylin Gilliam LPN Patient calling and says the pharmacy has not yet received the medication. documented in this encounter [facility] 02-18-2022 Miscellaneous Notes The following approved medication requests have been transmitted electronically. Signed Prescriptions Disp Refills metoprolol succinate ER (TOPROL XL) 50 mg 24 hr tablet 30 tablet 5 Sig: Take 1 tablet by mouth once daily. ARIELLE: No Authorizing Provider: KAI AYERS MD [facility] 09/19/21 NOV 03/20/22 Patient has been identified by name and date of : Yes Pending Prescriptions Disp Refills METOPROLOL SUCCINATE ER 50 MG TABLET,EXTENDED RELEASE 24 HR 30 tablet 5 Sig: Take 1 tablet by mouth once daily. ARIELLE: No RX INSTRUCTIONS: Patient requesting a call when RX is approved and sent to the pharmacy. Please call patient at: [phone] Patient two pills left Jennifer Pet [place]ard [facility] [place] [facility] 05[facility] History of Past i llness Narrative Problem Noted Date Resolved Date HLD (hyperlipidemia) 05/06/2014 05/20/2016 Benign neoplasm of rectum and anal canal 012 06/03/2017 Special screening for malignant neoplasms, colon 08/18/2012 06/04/2017 Lumbago 04/01/2006 06/03/2017 documented as of this encounter (statuses as of 02/18/2022) [facility] of Past illness Narrative* Problem Noted Date Resolved Date HLD (hyperlipidemia) 05/06/2014 05/20/2016 Benign neoplasm of rectum and anal canal 012 06/03/2017 Special screening for malignant neoplasms, colon 08/18/2012 06/04/2017 Lumbago 04/01/2006 06/03/2017 documented as of this encounter (statuses as of 02/23/2022) [facility] of Past illness Narrative* Problem Noted Date Resolved Date HLD (hyperlipidemia) 05/06/2014 05/20/2016 Benign neoplasm of rectum and anal canal 012 06/03/2017 Special screening for malignant neoplasms, colon 08/18/2012 06/04/2017 Lumbago 04/01/2006 06/03/2017 documented as of this encounter (statuses as of 03/23/2022) [facility] of Past illness Narrative* Problem Noted Date Resolved Date HLD (hyperlipidemia) 05/06/2014 05/20/2016 Benign neoplasm of rectum and anal canal 012 06/03/2017 Special screening for malignant neoplasms, colon 08/18/2012 06/04/2017 Lumbago 04/01/2006 06/03/2017 documented as of this encounter (statuses as of 03/25/2022) [facility] of Past [facility] Narrative* Problem Noted Date Resolved Date HLD (hyperlipidemia) 05/06/2014 05/20/2016 Benign neoplasm of rectum and anal canal 012 06/03/2017 Special screening for malignant neoplasms, colon 08/18/2012 06/04/2017 Lumbago 04/01/2006 06/03/2017 documented as of this encounter (statuses as of 04/20/2022) [facility] of [facility] Narrative* Problem Noted Date Resolved Date HLD (hyperlipidemia) 05/06/2014 05/20/2016 Benign neoplasm of rectum and anal canal 012 06/03/2017 Special screening for malignant neoplasms, colon 08/18/2012 06/04/2017 Lumbago 04/01/2006 06/03/2017 documented as of this encounter (statuses as of 08/20/2022) [facility] of [facility] Narrative* Problem Noted Date Resolved Date HLD (hyperlipidemia) 05/06/2014 05/20/2016 Benign neoplasm of rectum and anal canal 012 06/03/2017 Special screening for malignant neoplasms, colon 08/18/2012 06/04/2017 Lumbago 04/01/2006 06/03/2017 documented as of this encounter (statuses as of 09/18/2022) [facility] of [facility] Narrative* Problem Noted Date Resolved Date HLD (hyperlipidemia) 05/06/2014 05/20/2016 Benign neoplasm of rectum and anal canal 012 06/03/2017 Special screening for malignant neoplasms, colon 08/18/2012 06/04/2017 Lumbago 04/01/2006 06/03/2017 documented as of this encounter (statuses as of 09/22/2022) [facility] Narrative* Problem Noted Date Resolved Date HLD (hyperlipidemia) 05/06/2014 05/20/2016 Benign neoplasm of rectum and anal canal 012 06/03/2017 Special screening for malignant neoplasms, colon 08/18/2012 06/04/2017 Lumbago 04/01/2006 06/03/2017 documented as of this encounter (statuses as of 10/10/2022) [facility] Narrative* Problem Noted Date Resolved Date HLD (hyperlipidemia) 05/06/2014 05/20/2016 Benign neoplasm of rectum and anal canal 012 06/03/2017 Special screening for malignant neoplasms, colon 08/18/2012 06/04/2017 Lumbago 04/01/2006 06/03/2017 documented as of this encounter (statuses as of 10/12/2022) [facility] of [facility] Narrative* Problem Noted Date Resolved Date HLD (hyperlipidemia) 05/06/2014 05/20/2016 Benign neoplasm of rectum and anal canal 012 06/03/2017 Special screening for malignant neoplasms, colon 08/18/2012 06/04/2017 Lumbago 04/01/2006 06/03/2017 documented as of this encounter (statuses as of 03/22/2023) [facility] Narrative* Problem Noted Date Resolved Date HLD (hyperlipidemia) 05/06/2014 05/20/2016 Benign neoplasm of rectum and anal canal 012 06/03/2017 Special screening for malignant neoplasms, colon 08/18/2012 06/04/2017 Lumbago 04/01/2006 06/03/2017 documented as of this encounter (statuses as of 03/29/2023) [facility] N[facility]ative* Problem Noted Date Resolved Date HLD (hyperlipidemia) 05/06/2014 05/20/2016 Benign neoplasm of rectum and anal canal 012 06/03/2017 Special screening for malignant neoplasms, colon 08/18/2012 06/04/2017 Lumbago 04/01/2006 06/03/2017 documented as of this encounter (statuses as of 04/03/2023) [facility]ative* Problem Noted Date Resolved Date HLD (hyperlipidemia) 05/06/2014 05/20/2016 Benign neoplasm of rectum and anal canal 012 06/03/2017 Special screening for malignant neoplasms, colon 08/18/2012 06/04/2017 Lumbago 04/01/2006 06/03/2017 documented as of this encounter (statuses as of 04/08/2023) [facility]* Problem Noted Date Diagnosed Date Resolved Date HLD (hyperlipidemia) 05/06/2014 016 Benign neoplasm of rectum and anal canal 08/18/2012 06/03/2017 Special screening for malign ant neoplasms, colon 08/18/2012 06/04/2017 Lumbago 04/01/2006 06/03/2017 documented as of this encounter (statuses as of 05/06/2023) [facility]* Problem Noted Date Diagnosed Date Resolved Date HLD (hyperlipidemia) 05/06/2014 016 Benign neoplasm of rectum and anal canal 08/18/2012 06/03/2017 Special screening for malign ant neoplasms, colon 08/18/2012 06/04/2017 Lumbago 04/01/2006 06/03/2017 documented as of this encounter (statuses as of 08/17/2023) [facility]* Problem Noted Date Diagnosed Date Resolved Date HLD (hyperlipidemia) 05/06/2014 016 Benign neoplasm of rectum and anal canal 08/18/2012 06/03/2017 Special screening for malign ant neoplasms, colon 08/18/2012 06/04/2017 Lumbago 04/01/2006 06/03/2017 documented as of this encounter (statuses as of 09/03/2023) [facility]* Problem Noted Date Diagnosed Date Resolved Date HLD (hyperlipidemia) 05/06/2014 016 Benign neoplasm of rectum and anal canal 08/18/2012 06/03/2017 Special screening for malign ant neoplasms, colon 08/18/2012 06/04/2017 Lumbago 04/01/2006 06/03/2017 documented as of this encounter (statuses as of 09/17/2023) [facility] Diagnosis Mixed hyperlipidemia- Primary Panic disorder without agoraphobia Generalized anxiety disorder Elevated hemoglobin A1c Other abnormal blood chemistry Persistent atrial fibrillation (HCC) Atrial fibrillation Smoker Tobacco use disorder Obesity, Class II, BMI 35-39.9 Obesity, unspecified Encounter for immunization Need for other specified prophylactic vaccination against single bacterial disease Medication management Encounter for long-term (current) use of other medications Abnormal thyroid blood test Nonspecific abnormal results of thyroid function study [facility] Encounter for screening mammogram for breast cancer [facility] Diagnosis Well adult exam- Primary Routine general medical examination at a health care facility Mixed hyperlipidemia Elevated hemoglobin A1c Other abnormal blood chemistry Generalized anxiety disorder Panic disorder without agoraphobia Persistent atrial fibrillation (HCC) Atrial fibrillation Smoker Tobacco use disorder Obesity, Class II, BMI 35-39.9 Obesity, unspecified Screening for colon cancer Special screening for malignant neoplasms, colon Advance directive discussed with patient Other specified counseling Encounter for immunization Need for other specified prophylactic vaccination against single bacterial disease [facility] Diagnosis Lichen sclerosus Circumscribed scleroderma [facility]* Diagnosis Panic disorder without agoraphobia [facility]* Diagnosis Panic disorder without agoraphobia [facility]* Diagnosis Encounter for screening mammogram for breast cancer [facility]* Diagnosis Well adult exam- Primary Routine general medical examination at a health care facility Mixed hyperlipidemia Elevated hemoglobin A1c Other abnormal blood chemistry Persistent atrial fibrillation (HCC) Atrial fibrillation Generalized anxiety disorder Panic disorder without agoraphobia Obesity, Class II, BMI 35-39.9 Obesity, unspecified Advance directive discussed with patient Other specified counseling Screening for colon cancer Special screening for malignant neoplasms, colon Screening for osteoporosis Special screening for osteoporosis Asymptomatic menopause documented in this encounter [facility] note* Diagnosis Cutaneous candidiasis Candidiasis of skin and nails [facility] Diagnosis Lichen sclerosus Circumscribed scleroderma [facility]* Diagnosis Encounter for screening mammogram for breast cancer [facility]* Diagnosis Well adult exam- Primary Routine general medical examination at a health care facility Mixed hyperlipidemia Elevated hemoglobin A1c Other abnormal blood chemistry Persistent atrial fibrillation (HCC) Atrial fibrillation Generalized anxiety disorder Panic disorder without agoraphobia Obesity, Class II, BMI 35-39.9 Obesity, unspecified Smoker Tobacco use disorder Age-related osteoporosis without current pathological fracture Senile osteoporosis Advance directive discussed with patient Other specified counseling Screening for colon cancer Special screening for malignant neoplasms, colon Need for vaccination Need for prophylactic vaccination and inoculation against unspecified single disease Screening for depression documented in this encounter [facility] noteNo assessment information availableEastern [facility] Work Phone: [facility] (narrative)* Diagnostic Procedure Only (Routine) - Pending Review Specialty Diagnoses / Procedures Referred By Contac t Referred To Contact BR IMAGING Diagnoses Encounter for screening mammogram for breast cancer Procedures CHALINO SCREENING SCREENING MAMMOGRAPHY BI 2-VIEW BREAST INC CAD Kai Ayers MD [address] [place] [address] [facility] [address] [place] [address] Referral ID Status Reason Start Date Expiration Date Visits Requested Visits Authorized [id number] Pending Review Auto-Generat ed Referral 04/15/2022 05/15/2023 1 1 [facility] for referral (narrative)* Diagnostic Procedure Only (Routine) - Pending Review Specialty Diagnoses / Procedures Referred By Rayna t Referred To Contact BR IMAGING Diagnoses Encounter for screening mammogram for breast cancer Procedures CHALINO SCREENING SCREENING MAMMOGRAPHY BI 2-VIEW BREAST INC CAD Kai Ayers MD [address] [place] [address] [facility] [address] [place] [address] Referral ID Status Reason Start Date Expiration Date Visits Requested Visits Authorized [id number] Pending Review Auto-Generat ed Referral 03/24/2023 04/22/2024 1 1 [facility] for referral (narrative)* Diagnostic Procedure Only (Routine) - Pending Review Specialty Diagnoses / Procedures Referred By Contac t Referred To Contact BR IMAGING Diagnoses Encounter for screening mammogram for breast cancer Procedures CHALINO SCREENING SCREENING MAMMOGRAPHY BI 2-VIEW BREAST INC CAD Kai Ayers MD [address] [place] [address] [facility] [address] [place] [address] Referral ID Status Reason Start Date Expiration Date Visits Requested Visits Authorized [id number] Pending Review Auto-Generat ed Referral 03/01/2024 03/31/2025 1 1 [facility] for referral (narrative)* Diagnostic Procedure Only (Routine) - Pending Review Specialty Diagnoses / Procedures Referred By Contac t Referred To Contact XR IMAGING Diagnoses Screening for osteoporosis Asymptomatic menopause Procedures DXA-AXIAL SKELETON Kai Ayers MD [address] [place] [address] Xr Imaging [facility] Referral ID Status Reason Start Date Expiration Date Visits Requested Visits Authorized [id number] Pending Review Auto-Generat ed Referral 03/29/2024 04/28/2025 1 1 * Consult, Test, Treat (Routine) - Authorized Specialty Diagnoses / Procedures Referred By Contac t Referred To Contact General Surgery Diagnoses Screening for colon cancer Procedures CONSULT TO GENERAL SURGERY OFFICE/[facility]IENT [facility] 60 MINUTES Kai Ayers MD [facility] [place] [address] Referral ID Status Reason Start Date Expiration Date Visits Requested Visits Authorized [id number] Authorized PCP Requested Referral 03/29/2024 03/29/2025 1 1 [facility] for referral (narrative)No reason for referral information availableInd[facility] Work Phone: Reason for Referral Specialty Diagnoses / Procedures Referred By Contac t Referred To Contact General Surgery Diagnoses Screening for colon cancer Procedures CONSULT TO GENERAL SURGERY OFFICE/[facility]IENT [facility] 60-74 MINUTES Kai Ayers MD [address] [place] [address] Referral ID Status Reason Start Date Expiration Date Visits Requested Visits Authorized [id number] Authorized PCP Requested Referral 10/09/2022 10/09/2023 1 1 Chief Complaint and Reason for Visit Chief Complaint Admit Date 1 Y FU May 24, 2025 3: 25pm Family History No Family History Records Found Relationship Condition Age at Onset Recorded Date/T lev mother Cerebrovascular accident (CVA) Unknown Hypertension Unknown Atrial fibrillation Unknown Alzheimer's disease Unknown father Alzheimer's disease Unknown Advance Directives No Advanced Directives Records Found Advance Directive Response Recorded Date/ Time Living Will Yes November 21 015 11:02am Do you have a Healthcare Power of Outsole Rounder? Yes November 21, 2014 11:02am Advance Directives Yes November 11:02am Summary Purpose Additional Source Comments Source Comments (unrecognize d section and content) In the event this informatio n is protected by the Federal Confidentiality of Alcohol and Drug Abuse Patient Records regulations: The Federal rules restrict any use of the information to criminally investigate or prosecute any alcohol or drug abuse patient.[facility] HospitalIn the event this information is protected by the Federal Confidentiality of Alcohol and Drug Abuse Patient Records regulations: The Federal rules restrict any use of the information to criminally investigate or prosecute any alcohol or drug abuse patient.[facility] HospitalIn the event this information is protected by the Federal Confidentiality of Alcohol and Drug Abuse Patient Records regulations: The Federal rules restrict any use of the information to criminally investigate or prosecute any alcohol or drug abuse patient.[facility] HospitalIn the event this information is protected by the Federal Confidentiality of Alcohol and Drug Abuse Patient Records regulations: The Federal rules restrict any use of the information to criminally investigate or prosecute any alcohol or drug abuse patient.[facility] HospitalIn the event this information is protected by the Federal Confidentiality of Alcohol and Drug Abuse Patient Records regulations: The Federal rules restrict any use of the information to criminally investigate or prosecute any alcohol or drug abuse patient.[facility] HospitalIn the event this information is protected by the Federal Confidentiality of Alcohol and Drug Abuse Patient Records regulations: The Federal rules restrict any use of the information to criminally investigate or prosecute any alcohol or drug abuse patient.[facility] HospitalIn the event this information is protected by the Federal Confidentiality of Alcohol and Drug Abuse Patient Records regulations: The Federal rules restrict any use of the information to criminally investigate or prosecute any alcohol or drug abuse patient.[facility] HospitalIn the event this information is protected by the Federal Confidentiality of Alcohol and Drug Abuse Patient Records regulations: The Federal rules restrict any use of the information to criminally investigate or prosecute any alcohol or drug abuse patient.[facility] HospitalIn the event this information is protected by the Federal Confidentiality of Alcohol and Drug Abuse Patient Records regulations: The Federal rules restrict any use of the information to criminally investigate or prosecute any alcohol or drug abuse patient.[facility] HospitalIn the event this information is protected by the Federal Confidentiality of Alcohol and Drug Abuse Patient Records regulations: The Federal rules restrict any use of the information to criminally investigate or prosecute any alcohol or drug abuse patient.[facility] HospitalIn the event this information is protected by the Federal Confidentiality of Alcohol and Drug Abuse Patient Records regulations: The Federal rules restrict any use of the information to criminally investigate or prosecute any alcohol or drug abuse patient.[facility] HospitalIn the event this information is protected by the Federal Confidentiality of Alcohol and Drug Abuse Patient Records regulations: The Federal rules restrict any use of the information to criminally investigate or prosecute any alcohol or drug abuse patient.[facility] HospitalIn the event this information is protected by the Federal Confidentiality of Alcohol and Drug Abuse Patient Records regulations: The Federal rules restrict any use of the information to criminally investigate or prosecute any alcohol or drug abuse patient.[facility] HospitalIn the event this information is protected by the Federal Confidentiality of Alcohol and Drug Abuse Patient Records regulations: The Federal rules restrict any use of the information to criminally investigate or prosecute any alcohol or drug abuse patient.[facility] HospitalIn the event this information is protected by the Federal Confidentiality of Alcohol and Drug Abuse Patient Records regulations: The Federal rules restrict any use of the information to criminally investigate or prosecute any alcohol or drug abuse patient.[facility] HospitalIn the event this information is protected by the Federal Confidentiality of Alcohol and Drug Abuse Patient Records regulations: The Federal rules restrict any use of the information to criminally investigate or prosecute any alcohol or drug abuse patient.City HospitalIn the event this information is protected by the Federal Confidentiality of Alcohol and Drug Abuse Patient Records regulations: The Federal rules restrict any use of the information to criminally investigate or prosecute any alcohol or drug abuse patient.City HospitalIn the event this information is protected by the Federal Confidentiality of Alcohol and Drug Abuse Patient Records regulations: The Federal rules restrict any use of the information to criminally investigate or prosecute any alcohol or drug abuse patient.City HospitalIn the event this information is protected by the Federal Confidentiality of Alcohol and Drug Abuse Patient Records regulations: The Federal rules restrict any use of the information to criminally investigate or prosecute any alcohol or drug abuse patient.[facility] HospitalIn the event this information is protected by the Federal Confidentiality of Alcohol and Drug Abuse Patient Records regulations: The Federal rules restrict any use of the information to criminally investigate or prosecute any alcohol or drug abuse patient.[facility] HospitalIn the event this information is protected by the Federal Confidentiality of Alcohol and Drug Abuse Patient Records regulations: The Federal rules restrict any use of the information to criminally investigate or prosecute any alcohol or drug abuse patient.City HospitalIn the event this information is protected by the Federal Confidentiality of Alcohol and Drug Abuse Patient Records regulations: The Federal rules restrict any use of the information to criminally investigate or prosecute any alcohol or drug abuse patient.City HospitalIn the event this information is protected by the Federal Confidentiality of Alcohol and Drug Abuse Patient Records regulations: The Federal rules restrict any use of the information to criminally investigate or prosecute any alcohol or drug abuse patient.[facility] HospitalIn the event this information is protected by the Federal Confidentiality of Alcohol and Drug Abuse Patient Records regulations: The Federal rules restrict any use of the information to criminally investigate or prosecute any alcohol or drug abuse patient.City HospitalIn the event this information is protected by the Federal Confidentiality of Alcohol and Drug Abuse Patient Records regulations: The Federal rules restrict any use of the information to criminally investigate or prosecute any alcohol or drug abuse patient.[facility] HospitalIn the event this information is protected by the Federal Confidentiality of Alcohol and Drug Abuse Patient Records regulations: The Federal rules restrict any use of the information to criminally investigate or prosecute any alcohol or drug abuse patient.City HospitalIn the event this information is protected by the Federal Confidentiality of Alcohol and Drug Abuse Patient Records regulations: The Federal rules restrict any use of the information to criminally investigate or prosecute any alcohol or drug abuse patient.[facility] HospitalIn the event this information is protected by the Federal Confidentiality of Alcohol and Drug Abuse Patient Records regulations: The Federal rules restrict any use of the information to criminally investigate or prosecute any alcohol or drug abuse patient.[facility] HospitalIn the event this information is protected by the Federal Confidentiality of Alcohol and Drug Abuse Patient Records regulations: The Federal rules restrict any use of the information to criminally investigate or prosecute any alcohol or drug abuse patient.City HospitalIn the event this information is protected by the Federal Confidentiality of Alcohol and Drug Abuse Patient Records regulations: The Federal rules restrict any use of the information to criminally investigate or prosecute any alcohol or drug abuse patient.[facility] HospitalIn the event this information is protected by the Federal Confidentiality of Alcohol and Drug Abuse Patient Records regulations: The Federal rules restrict any use of the information to criminally investigate or prosecute any alcohol or drug abuse patient.[facility] HospitalIn the event this information is protected by the Federal Confidentiality of Alcohol and Drug Abuse Patient Records regulations: The Federal rules restrict any use of the information to criminally investigate or prosecute any alcohol or drug abuse patient.City HospitalIn the event this information is protected by the Federal Confidentiality of Alcohol and Drug Abuse Patient Records regulations: The Federal rules restrict any use of the information to criminally investigate or prosecute any alcohol or drug abuse patient.[facility] HospitalIn the event this information is protected by the Federal Confidentiality of Alcohol and Drug Abuse Patient Records regulations: The Federal rules restrict any use of the information to criminally investigate or prosecute any alcohol or drug abuse patient.[facility] HospitalIn the event this information is protected by the Federal Confidentiality of Alcohol and Drug Abuse Patient Records regulations: The Federal rules restrict any use of the information to criminally investigate or prosecute any alcohol or drug abuse patient.City HospitalIn the event this information is protected by the Federal Confidentiality of Alcohol and Drug Abuse Patient Records regulations: The Federal rules restrict any use of the information to criminally investigate or prosecute any alcohol or drug abuse patient.[facility] Reason for Visit (unrecogniz ed section and content) Reason Comments Refill Request Reason Comments Appointment Reason Comments Results Reason Comments F/U 6 months Reason Onset Date Comments Refill Request 08/20/2022 Reason Onset Date Comments Refill Request 09/18/2022 Reason Comments Medication Question Reason Comments Physical Reason Comments Consult Cardiology Reason Onset Date Comments Refill Request 02/15/2023 Reason Onset Date Comments Refill Request 05/05/2023 Reason Onset Date Comments Refill Request 09/03/2023 Reason Onset Date Comments Refill Request 02/14/2024 Reason Onset Date Comments Refill Request 12/29/2023 Reason Onset Date Comments Refill Request 03/06/2024 Reason Comments Outside Cardio Reason Comments Medicare Wellness Exam Reason Onset Date Comments Refill Request 05/25/2024 Not on current l ist Reason Onset Date Comments Refill Request 05/25/2024 Reason Onset Date Comments Refill Request 06/14/2024 Reason Onset Date Comments Refill Request 08/17/2024 Reason Onset Date Comments Refill Request 01/19/2025 Reason Onset Date Comments Refill Request 02/08/2025 Reason Onset Date Comments Refill Request 03/02/2025 Reason Comments Well Adult Reason Comments Abstract Cardiology OV note Care Teams (unrecognized sec tion and content) Bioinformatics Computer Scientist Relationship Specialty Start Date End Date Kai Ayers MD [address] [facility] [address] PCP - General Family Practice 12/20/18 Bioinformatics Computer Scientist Relationship Specialty Start Date End Date Kai Ayers MD [address] [place] [address], [place] [address] PCP - General Family Practice 12/20/18 Bioinformatics Computer Scientist Relationship Specialty Start Date End Date Kai Ayers MD [address] [place] [address] [place] [address] PCP - General Family Practice 12/20/18 Bioinformatics Computer Scientist Relationship Specialty Start Date End Date Kai Ayers MD [address] [place] [address], [place] [address] PCP - General Family Practice 12/20/18 Bioinformatics Computer Scientist Relationship Specialty Start Date End Date Kai Ayers MD [address] [place] [address], [place] [address] PCP - General Family Medicine 12/20/18 Bioinformatics Computer Scientist Relationship Specialty Start Date End Date Kai Ayers MD [address] [place] [address], [place] [address] PCP - General Family Medicine 12/20/18 Bioinformatics Computer Scientist Relationship Specialty Start Date End Date Kai Ayers MD [address] [place] [address], [place] [address] PCP - General Family Medicine 12/20/18 Bioinformatics Computer Scientist Relationship Specialty Start Date End Date aKi Ayers MD [address] [place] [address], [place] [address] PCP - General Family Medicine 12/20/18 Bioinformatics Computer Scientist Relationship Specialty Start Date End Date Kai Ayers MD [address] [facility] [address] PCP - General Family Medicine 12/20/18 Bioinformatics Computer Scientist Relationship Specialty Start Date End Date Kai Ayers MD [address] [place] [address] PCP - General Family Medicine 12/20/18 Bioinformatics Computer Scientist Relationship Specialty Start Date End Date Kai Ayers MD [address] [place] [address] PCP - General Family Medicine 12/20/18 Bioinformatics Computer Scientist Relationship Specialty Start Date End Date Kai Ayers MD [address] [place] [address] PCP - General Family Medicine 12/20/18 Bioinformatics Computer Scientist Relationship Specialty Start Date End Date Kai Ayers MD [address] [place] [address] PCP - General Family Medicine 12/20/18 Bioinformatics Computer Scientist Relationship Specialty Start Date End Date Kai Ayers MD [address] [place] [address] PCP - General Family Medicine 12/20/18 Bioinformatics Computer Scientist Relationship Specialty Start Date End Date Kai Ayers MD [address] [place] [address] PCP - General Family Medicine 12/20/18 Bioinformatics Computer Scientist Relationship Specialty Start Date End Date Kai Ayers MD [address] [place] [address] PCP - General Family Medicine 12/20/18 Bioinformatics Computer Scientist Relationship Specialty Start Date End Date Kai Ayers MD [address] [place] [address] PCP - General Family Medicine 12/20/18 Bioinformatics Computer Scientist Relationship Specialty Start Date End Date Kai Ayers MD [address] [place] [address] PCP - General Family Medicine 12/20/18 Bioinformatics Computer Scientist Relationship Specialty Start Date End Date Kai Ayers MD [address] [place] [address] PCP - General Family Medicine 12/20/18 Bioinformatics Computer Scientist Relationship Specialty Start Date End Date Kai Ayers MD [address] [place] [address] PCP - General Family Medicine 01/08/25 Lisa Klein, MEG.NURSE INTERN [address] [place] [address] [facility] 09/09/24 Ruth Lucia PA-C [address] [place] [address] [facility] 09/09/24 Bioinformatics Computer Scientist Relationship Specialty Start Date End Date Kai Ayers MD [address] [place] [address] PCP - General Family Medicine 01/08/25 Lisa Klein APRN.NURSE INTERN [address] [place] [phone] [facility] 09/09/24 Ruth Lucia PA-C [address] [place] [address] [facility] 09/09/24 Bioinformatics Computer Scientist Relationship Specialty Start Date End Date Kai Ayers MD [address] [place] [address] PCP - General Family Medicine 01/08/25 Lisa Klein APRN.NURSE INTERN [address] [place] [phone] [facility] 09/09/24 02/18/25 Ruth Lucia PA-C [address] [place] [phone] [facility] 09/09/24 Bioinformatics Computer Scientist Relationship Specialty Start Date End Date Kai Ayers MD [address] [place] [address] PCP - General Family Medicine 01/08/25 Ruth Lucia PA-C [address] [place] [address] [facility] 09/09/24 Bioinformatics Computer Scientist Relationship Specialty Start Date End Date Kai Ayers MD [address] [place] [address] PCP - General Family Medicine 01/08/25 Lisa Klein APRN.NURSE INTERN [address] [place] [phone] [facility] 03/05/25 Ruth Lucia PA-C [address] [place] [address] [facility] 03/05/25 Bioinformatics Computer Scientist Relationship Specialty Start Date End Date Kai Ayers MD [address] [place] [address] PCP - General Family Medicine 01/08/25 Lisa Klein, MEG.NURSE INTERN [address] [place] [address] [facility] 03/05/25 Ruth Lucia PA-C [facility] [place] [address] [facility] 03/05/25 Team Status: Active Member Role/Relationship Status Dates Dr. Nic Mcallister MD Family Provider Active Dr. Kai Ayers MD Primary Care Provider Active Team Status: Inactive Member Role/Relationship Status Dates Dr. Kai Ayers MD Primary Care Provider Active Start: May 24, 2025 End: May 24, 2025 Dr. Kai Ayers MD Referring Provider Active Start: May 24, 2025 End: May 24, 2025 Dr. Rah Joseph MD Attending Provider Active S tart: May 24, 2025 End: May 24, 2025 Bioinformatics Computer Scientist Relationship Specialty Start Date End Date Kai yAers MD [address] [place] [address] PCP - General Family Medicine 01/08/25 Lisa Klein, COLLEGE HIRE.NURSE INTERN [facility] [place] [address] [facility] 03/05/25 Ruth Lucia PA-C [address] [place] [address] [facility] 03/05/25 Goals (unrecognized section and content) Goals may be documented in a n alternate section INFORMATION SOURCE (unrecogn ized section and content) DATE CREATED AUTHOR 05/26/2025 [facility] DATE CREATED AUTHOR AUTHOR'S RUBIO ANG 07/05/2025 [facility] FOR RECORDS PERTAINING TO PATIENTS WHO ARE OR HAVE BEEN ENROLLED IN A CHEMICAL DEPENDENCY/SUBSTANCEABUSE PROGRAM, SOME INFORMATION MAY BE OMITTED. This clinical summary was aggregated from multiple sources. Caution should be exercised in using it in the provision of clinical care. This summary normalizes information from multiple sources, and as a consequence, information in this document may materially change the coding, format and clinical context of patient data. In addition, data may be omitted in some cases. CLINICAL DECISIONS SHOULD BE BASED ON THE PRIMARY CLINICAL RECORDS. [employer] provides no warranty or guarantee of the accuracy or completeness of information in this document.
--- NOTE | 2025-09-09 07:42 | EDS_ITS ---
HPI History of Present Illness Chief Complaint: Abd Pain Narrative Narrative: Patient was seen and examined after presenting to ED for right-sided abdominal pain and nausea vomiting with some right low back pain started last night. PFSH PFSH Medical History Longstanding persistent atrial fibrillation Premature ventricular contraction Atrial flutter Tobacco abuse Panic disorder Generalized anxiety disorder Mixed hyperlipidemia Home Medications ?Medication ?Instructions ?Recorded ?Last Taken ?Type [id number] 250 1 ea PO DAILY PRN P RN headache 11/20/14 11/19/14 12:00 History mg-250 mg-65 mg tablet (Excedrin Migraine) clonazepam 0.5 mg tablet 0.5 mg PO DAILY PRN anxity 0 04/25/21 Unknown History hydrochlorothiazide 12.5 mg tablet 12.5 mg PO DAILY Unknown History metoprolol succinate 50 mg 50 mg PO DAILY 04/25/21 Unk nown History tablet,extended release 24 hr clobetasol 0.05 % topical ointment 1 applic topical QW YUROK 05/26/21 Unknown History cranberry 500 mg capsule 1,000 mg PO DAILY 05/26/21 U nknown History apixaban 5 mg tablet (Eliquis) 5 mg PO BID #60 TABLETS 04/04/25 Unknown Rx calcium carbonate 650 mg PO DAILY PRN dyspepsi a 05/24/25 Unknown History cholecalciferol (vitamin D3) 50 50 mcg PO DAILY PRN deshpande ppleme 05/24/25 Unknown History mcg (2,000 unit) capsule amoxicillin 500 mg capsule 500 mg PO TID 09/09/25 Unkn own History oxycodone-acetaminophen 5 mg-325 1 tab PO Q6H PRN pain 2 days #8 09/09/25 Unknown Rx mg tablet (Percocet) tabs Allergy/AdvReac Type Severity Reaction Status Date / Time rivaroxaban (From Xarelto) AdvReac Intermediate Marked Verified 09/09/25 05:50 bruising, vaginal bleeding (eliquis ok) buspirone (From BuSpar) AdvReac Unknown Increased Verified 09/09/25 05:50 Depression citalopram (From Celexa) AdvReac Unknown Increased Verified 09/09/25 05:50 Anxiety and slight depression Family History Mother CVA (cerebral vascular accident) Hypertension Atrial fibrillation Alzheimer's disease Father Alzheimer's disease Surgical History H/O oral surgery History of ankle surgery (~2016) History of local excision of skin lesion Social History Smoking Status: Current every day smoker tobacco type: cigarettes alcohol intake: current details: Rare substance use type: does not use caffeine: Yes Type: coffee Number of servings: 1 ROS ROS ED ROS Narrative Pertinent Positives: Nausea vomiting right-sided flank and abdominal pain Pertinent Negatives: Fevers chills chest pain pressure shortness of breath hematuria black or bloody stools diarrhea The remainder of review of systems negative unless otherwise stated in the HPI above. Systems reviewed including constitutional, psychiatric, cardiovascular, respiratory, integument, HENT, gastrointestinal. EXAM Physical Exam Narrative Exam Narrative: Afebrile hemodynamically stable does not appear toxic or in distress she is normocephalic atraumatic her abdomen is soft she has tenderness in the right lower quadrant but really no CVA tenderness no overlying skin changes or vesicular lesions or crepitus. No palpable pulsatile abdominal mass she does have intact and equal MSPs in her extremities no lower extremity edema or calf tenderness Const Vital Signs: 09/09/25 05:46 09/09/25 07:45 Temperature 97.6 F L Temperature Source Oral Pulse Rate 75 83 Respiratory Rate 16 16 Blood Pressure 153/90 H 133/69 H Blood Pressure Mean 111 90 Pulse Ox 100 96 Oxygen Delivery Method Room Air Room Air MDM MDM MDM Narrative Medical decision making narrative: Nursing notes, triage notes, available previous documentation, and vital signs were reviewed. Any discrepancies noted were addressed. Differential Diagnoses: Could be appendicitis diverticular disease nephrolithiasis pyelonephritis lower suspicion for aortic etiology could be constipation does not seem like it is mesenteric ischemia Interventions: Morphine Zofran Fluids Given: 1 L normal saline Labs Reviewed: Leukocytosis 12.6 likely reactive given the condition no anemia no significant electrolyte abnormality or renal insufficiency or transaminitis lipase was 10 Imaging Reviewed: Personally reviewed and interpreted by me: CT abdomen and pelvis on my review you can see right sided hydronephrosis I cannot identify a stone but you could see some atherosclerotic disease in the aorta however the official radiology interpretation is reporting concern for possibly a recently passed kidney stone or the possibility of a UTI Previous Documentation Reviewed: None available or applicable at this time. ED Course: Patient presenting with symptoms as stated above she was found to have right-sided hydronephrosis still waiting on a urine however she is afebrile patient still having pain. 0851: Urine does not appear infected at all but does have blood be more consistent with a recently passed kidney stone patient will be given return precautions follow-up recommendations medications for analgesia shows stable for discharge This note was made utilizing voice recognition software. All attempts were made to correct spelling or other errors prior to note completion. However, due to the fast-paced nature of emergency medicine, some errors may still be present. Lab Data Labs: Laboratory Results - last 24 hr 09/09/25 09/09/25 05:50 07:30 WBC 12.6 H RBC 4.77 Hgb 14.6 Hct 45.0 MCV 94.3 MCH 30.6 MCHC 32.4 RDW Std Deviation 46.5 H RDW Coeff of Derick 13.4 Plt Count 263 MPV 10.4 Immature Gran % (Auto) 0.400 Neut % (Auto) 85.4 H Lymph % (Auto) 10.8 L [place] % (Auto) 3.0 Eos % (Auto) 0.1 Baso % (Auto) 0.3 Absolute Neuts (auto) 10.7 H Absolute Lymphs (auto) 1.36 Nucleated RBC % 0 Sodium 139 Potassium 3.6 Chloride 98 Carbon Dioxide 24.8 Anion Gap 17 H BUN 15 Creatinine 0.87 Estim Creat Clear Calc 71.73 Est GFR (MDRD) Non-Af 71 BUN/Creatinine Ratio 17.0 Glucose 166 H Calcium 9.5 Total Bilirubin 0.60 AST 26 ALT 18 Alkaline Phosphatase 111 H Total Protein 7.7 Albumin 4.6 Globulin 3.1 Albumin/Globulin Ratio 1.5 Lipase 10 L Urine Color Yellow Urine Clarity Clear Urine pH 6.5 Ur Specific [place] 1.010 Urine Protein 15 H Urine Glucose (UA) Normal Urine Ketones 15 H Urine Occult Blood 10 H Urine Nitrite Negative Urine Bilirubin Negative Urine Urobilinogen Normal Ur Leukocyte Esterase Negative Urine RBC 0 SEEN Urine WBC 0 SEEN Ur Squamous Epith Cells 0-5 SEEN Urine Bacteria 0 SEEN Urine Mucus 0 SEEN Radiography Diagnostic Testing: Clinical Impression(s) from Imaging Studies Abdomen/Pelvis CT 09/09/25 05:58 IMPRESSION: Severe right hydronephrosis without obstructing stones. This may represent a recently passed stone or urinary tract infection. Questionable posterior bladder wall thickening near the ureter insertion. Ultrasound on full bladder may be performed for further evaluation. Reading Location: [facility] Discharge Plan Triage Chief Complaint: Abd Pain ED Provider: Ida Raza Dx/Rx/DC Orders Clinical Impression: Hydronephrosis of right kidney, Right flank pain, Nausea and vomiting, Renal colic on right side Instructions: ED Kidney Stone with Pain Prescriptions: New oxycodone-acetaminophen [Percocet] 5-325 mg tablet 1 tab PO Q6H PRN (Reason: pain) 2 Days Qty: 8 0RF No Action clobetasol 0.05 % ointment 1 applic topical QWEEK Rx Instructions: 1-3x week cranberry 500 mg capsule 1,000 mg PO DAILY Rx Instructions: administer with meals [id number] [Excedrin Migraine] 1 EACH tablet 1 ea PO DAILY PRN PRN (Reason: headache) Patient Comments: MIGRAINES amoxicillin 500 mg capsule 500 mg PO TID clonazepam 0.5 mg tablet 0.5 mg PO DAILY PRN (Reason: anxity) Patient Comments: ANXIETY hydrochlorothiazide 12.5 mg tablet 12.5 mg PO DAILY metoprolol succinate 50 mg tablet extended release 24 hr 50 mg PO DAILY Eliquis 5 mg tablet 5 mg PO BID Qty: 60 12RF calcium carbonate 650 mg calcium (1,625 mg) tablet 650 mg PO DAILY PRN (Reason: dyspepsia) cholecalciferol (vitamin D3) 50 mcg (2,000 unit) capsule 50 mcg PO DAILY PRN (Reason: suppleme) Primary Care Provider: Kai Daly Referrals: Kai Daly MD [Primary Care Provider, Family Practice] Activity Restrictions/Additional Instructions: Be sure to follow-up with your primary care if you are feeling worse do not hesitate to return especially if you are developing fevers worsening pain Print Language: Chadian Disposition Disposition: Home, Self Care
[2025-09-09 07:45] VITALS: BP 133/69; PULSE 83; RESP 16; O2SAT 96
[2025-09-09 07:48] LABS: Mucous, Urine 0 SEEN /hpf (<or=2+); Red Blood Cells-Urine 0 SEEN /hpf (0-5)
[2025-09-09 07:55] LABS: Color, Urine Yellow (Yellow); Glucose, Dipstick Normal (Normal); Ketone-Dipstick 15 mg/dl (Negative); Leukocyte Esterase-Dipstick Negative /ul (Negative); Nitrite-Dipstick Negative (Negative); Occult Blood-Urine 10 /ul (Negative); Protein-Dipstick 15 mg/dl (Negative); Specific Gravity, Urine 1.010 (1.002-1.030); Urine Bilirubin Dipstick Negative (Negative)
[2025-09-09 08:09] LABS: Squamous Epithelial Cells - UA 0-5 SEEN /hpf (5-10)
[2025-09-09 09:00] VITALS: BP 133/69; PULSE 83; RESP 16; TEMP 36.7; O2SAT 96
== END 2025-09-09 09:07 | disposition home or self-care (01) ==
PROVIDERS: Emergency Provider Specialist/Technologist Athletic Trainer; PCP Family Medicine; Visit Provider Specialist/Technologist Athletic Trainer
DX: N23 Unspecified renal colic (principal); R11.2 Nausea with vomiting, unspecified; E78.2 Mixed hyperlipidemia; Z79.01 Long term (current) use of anticoagulants; Z79.82 Long term (current) use of aspirin; Z79.899 Other long term (current) drug therapy
CPT/HCPCS: 74177; 80053; 81001; 83690; 85025; 96361; 96374; 96375; 96376; 99285; Q9967; A4216; J2405